=== PATIENT | female | born 1935 | race Caucasian/White ===

== ENCOUNTER 2018-08-13 17:10 | Emergency (ER) | payer MEDICARE ==
[2018-08-13 19:14] LABS: Calcium 10.2 mg/dL (8.4-10.2)
[2018-08-13 19:25] LABS: HCT 44.3 % (34.0-46.0); HGB 14.3 gm/dL (11.4-16.0); MCH 30.3 pg (25.0-35.0); MCHC 32.4 g/dL (31.0-37.0); MCV 93.6 fL (80.0-100.0); Mean Platelet Volume 7.8; Platelet Count 368 k/uL (150-450); RBC 4.73 m/uL (3.80-5.40); RDW 12.7 % (11.5-15.5); WBC 9.6 k/uL (3.8-10.6)
--- NOTE | 2018-08-13 20:00 | XR ---
EXAMINATION TYPE: XR chest 2V DATE OF EXAM: 08/13/2018 COMPARISON: NONE HISTORY: Dizziness TECHNIQUE: Frontal and lateral views of the chest are obtained. FINDINGS: Heart and mediastinum are normal. Lungs are clear. Diaphragm is normal. Bony thorax is int act. There are chest leads. IMPRESSION: Normal chest.
[2018-08-13] MEDS ORDERED: MECLIZINE 12.5 MG TAB PO STA ×2 (20:10→23:03)
--- NOTE | 2018-08-13 20:14 | ED ---
General Adult HPI - General Chief complaint: Dizziness Stated complaint: High BP Source: patient Mode of arrival: wheelchair Limitations: no limitations - Related Data Home Medications Medication Instructions Recorded Confirmed Latanoprost [Xalatan 0.005%] 1 drop BOTH EYES HS 08/13/18 08/13/18 Lisinopril-Hctz 20-12.5 mg 1 tab PO DAILY 08/13/18 08/13/18 [Zestoretic 20-12.5] Omeprazole [PriLOSEC] 20 mg PO DAILY 08/13/18 08/13/18 Propylene Glycol/Peg 400/Pf 1 drop BOTH EYES QID PRN 08/13/18 08/13/18 [Systane 0.3-0.4% Eye Drops] Previous Rx's Medication Instructions Recorded Meclizine [Antivert] 25 mg PO BID PRN #24 tab 08/13/18 Allergies Allergy/AdvReac Type Severity Reaction Status Date / Time blue dye Allergy Rash/Hives Verified 08/13/18 18:00 Review of Systems ROS Statement: Those systems with pertinent positive or pertinent negative responses have been documented in the HPI. ROS Other: All systems not noted in ROS Statement are negative. Past Medical History Past Medical History: CVA/TIA, GERD/Reflux, Hypertension Additional Past Medical History / Comment(s): macular degeneration, glaucoma. History of Any Multi-Drug Resistant Organisms: None Reported Past Surgical History: Cholecystectomy, Hysterectomy, Tonsillectomy Past Psychological History: No Psychological Hx Reported Smoking Status: Former smoker Past Alcohol Use History: None Reported General Exam Limitations: no limitations Course Vital Signs 08/13/18 08/13/18 08/13/18 17:19 18:22 18:27 Temperature 97.6 F Pulse Rate 83 80 81 Respiratory 18 18 16 Rate Blood Pressure 183/91 188/91 193/95 O2 Sat by Pulse 96 96 95 Oximetry 08/13/18 08/13/18 20:00 22:00 Temperature 98.2 F Pulse Rate 76 80 Respiratory 18 20 Rate Blood Pressure 189/88 184/98 O2 Sat by Pulse 98 96 Oximetry Medical Decision Making - Medical Decision Making Dictation was produced using [employer] dictation software. please excuse any grammatical, word or spelling errors. Chief Complaint: 83-year-old female past medical history of retinal hemorrhages presents with chief complaint dizziness. History of Present Illness: Is a 83-year-old female. She is accompanied by her daughters. She was seen by her primary care physician's office today where she was dizzy. She was sent here by primary care physician's office for dizziness blood pressure. Allegedly according to daughter she had high blood pressures with systolic measuring 200. Patient does take antihypertensive medications. She does state she takes, medications of lisinopril hydrochlorothiazide over the last several years without any issues. Last time she had her blood pressure checked was several months ago. Patient states she is feeling dizzy. She reports that her symptoms are worse with movement. She does report that her symptoms are worse when lying flat with left lateral recumbent position. States that her dizziness is more like lightheadedness. She states the room is sometimes gets moving. The ROS documented in this emergency department record has been reviewed and confirmed by me. Those systems with pertinent positive or negative responses have been documented in the HPI. All other systems are other negative and/or noncontributory. PHYSICAL EXAM: General Impression: Alert and oriented x3, not in acute distress HEENT: Normocephalic atraumatic, extra-ocular movements intact, pupils equal and reactive to light bilaterally, mucous membranes moist, no nystagmus Cardiovascular: Heart regular rate and rhythm, S1&S2 audible, no murmurs, rubs or gallops Chest: Lungs clear to auscultation bilaterally, no rhonchi, no wheeze, no rales Abdomen: Bowel sounds present, abdomen soft, non-tender, non-distended, no organomegaly Musculoskeletal: Pulses present and equal in all extremities, no peripheral edema Motor: Power 5/5 bilaterally, no focal deficits noted Neurological: CN II-XII grossly intact, no focal motor or sensory deficits noted , no ataxia, normal finger to nose and heel vincent test bilaterally Skin: Intact with no visualized rashes Psych: Normal affect and mood No elicited nystagmus with, positions. ED course: 83-year-old female presents chief complaint of dizziness and elevated blood pressure. As upon arrival shows blood pressure 183/91, respiratory signs within acceptable limits. Patient's clinical presentation is consistent with peripheral vertigo. HINTS exam does not suggest central cause.Laboratory evaluation obtained found to be unremarkable. Urinalysis negative. Chest x-ray is unremarkable. Patient given Antivert and reevaluated with improvement of symptoms. At this point no clinical suspicion of vertebrobasilar insufficiency or central cause of vertigo. Did have strong suspicion of peripheral vertigo. Patient told to rest and take Antivert. Otherwise she can follow-up with her primary care physician upon discharge. Family and patient are understandable and agreeable to plan. At this point patient continues to have elevated blood pressures. I don't believe that patient having any symptoms of hypertensive emergency. Patient to follow up with primary care physician for further outpatient management of elevated blood pressure. EKG interpretation: Ventricular rate 82, normal sinus rhythm, FL interval 126, QRS 84, QTC 462. No FL prolongation, no QTC prolongation, no ST or T-wave changes noted. Overall, this EKG is unremarkable - Lab Data Result diagrams: 08/13/18 18:10 08/13/18 18:10 Lab Results 08/13/18 08/13/18 08/13/18 Range/Units 18:10 18:10 Unknown WBC 9.6 (3.8-10.6) k/uL RBC 4.73 (3.80-5.40) m/uL Hgb 14.3 (11.4-16.0) gm/dL Hct 44.3 (34.0-46.0) % MCV 93.6 (80.0-100.0) fL MCH 30.3 (25.0-35.0) pg MCHC 32.4 (31.0-37.0) g/dL RDW 12.7 (11.5-15.5) % Plt Count 368 (150-450) k/uL Neutrophils % (Manual) 66 % Lymphocytes % (Manual) 25 % Monocytes % (Manual) 7 % Eosinophils % (Manual) 2 % Neutrophils # (Manual) 6.34 (1.3-7.7) k/uL Lymphocytes # (Manual) 2.40 (1.0-4.8) k/uL Monocytes # (Manual) 0.67 (0-1.0) k/uL Eosinophils # (Manual) 0.19 (0-0.7) k/uL Nucleated RBCs 0 (0-0) /100 WBC Manual Slide Review Performed Large Platelets Present Sodium 139 (137-145) mmol/L Potassium 5.0 (3.5-5.1) mmol/L Chloride 102 (98-107) mmol/L Carbon Dioxide 28 (22-30) mmol/L Anion Gap 9 mmol/L BUN 17 (7-17) mg/dL Creatinine 0.82 (0.52-1.04) mg/dL Est GFR (CKD-EPI)AfAm 78 (>60 ml/min/1.73 sqM) Est GFR (CKD-EPI)NonAf 67 (>60 ml/min/1.73 sqM) Glucose 121 H (74-99) mg/dL Calcium 10.2 (8.4-10.2) mg/dL Urine Color Light Yellow Urine Appearance Clear (Clear) Urine pH 7.0 (5.0-8.0) Ur Specific [place] 1.006 (1.001-1.035) Urine Protein Negative (Negative) Urine Glucose (UA) Negative (Negative) Urine Ketones Negative (Negative) Urine Blood Negative (Negative) Urine Nitrite Negative (Negative) Urine Bilirubin Negative (Negative) Urine Urobilinogen <2.0 (<2.0) mg/dL Ur Leukocyte Esterase Trace H (Negative) Urine RBC 3 (0-5) /hpf Hyaline Casts 1 (0-2) /lpf Disposition Clinical Impression: Dizziness Disposition: HOME SELF-CARE Condition: Fair Instructions: Dizziness (ED) Prescriptions: Meclizine [Antivert] 25 mg PO BID PRN #24 tab PRN Reason: dizziness Is patient prescribed a controlled substance at d/c from ED?: No Referrals: Lyn Bowie MD [Primary Care Provider] - 1-2 days Time of Disposition: 22:41
[2018-08-13 20:32] LABS: Eosinophils # (M) 0.19 k/uL (0-0.7); Monocytes # (M) 0.67 k/uL (0-1.0); Neutrophils # (M) 6.34 k/uL (1.3-7.7); Neutrophils % (M) 66 %; Nucleated Red Blood Cells 0 /100 WBC (0-0); Total Cells Counted 100
[2018-08-13 20:33] LABS: Large Platelets Present
[2018-08-13 22:25] LABS: Appearance,Urine Clear (Clear); Bilirubin,Urine Negative (Negative); Blood,Urine Negative (Negative); Color,Urine Light Yellow; Glucose,Urine (UA) Negative (Negative); Hyaline Casts,Urine 1 /lpf (0-2); Ketones,Urine Negative (Negative); Leukocyte Esterase,Urine Trace (Negative); Nitrite,Urine Negative (Negative); Protein,Urine Negative (Negative); RBC,Urine 3 /hpf (0-5); Specific Gravity,Urine 1.006 (1.001-1.035); Urobilinogen,Urine <2.0 mg/dL (<2.0)
[2018-08-13 23:20] VITALS: BP 170/84; PULSE 72; RESP 18; TEMP 98.3
== END 2018-08-13 23:06 | disposition home or self-care (01) ==
LOC: EC 17:10
DX: R42 Dizziness and giddiness (principal); I10 Essential (primary) hypertension; K21.9 Gastro-esophageal reflux disease without esophagitis; H35.30 Unspecified macular degeneration; Z86.73 Personal history of transient ischemic attack (TIA), and cerebral infarction without residual deficits; Z87.891 Personal history of nicotine dependence; Z90.49 Acquired absence of other specified parts of digestive tract; Z90.710 Acquired absence of both cervix and uterus; Z79.899 Other long term (current) drug therapy; Z91.048 Other nonmedicinal substance allergy status
CPT/HCPCS: 36415; 71046; 80048; 81001; 85025; 93005; 99284

== ENCOUNTER 2021-07-18 14:43 | Emergency (ER) | payer MEDICARE ==
[2021-07-18 15:04] VITALS: RESP 18; TEMP 98
--- NOTE | 2021-07-18 16:58 | XR ---
EXAMINATION TYPE: XR chest 2V DATE OF EXAM: 07/18/2021 4:37 PM COMPARISON: Radiograph on August 13, 2018 CLINICAL INDICATION:Female, 86 years old with history of possible infiltrate; TECHNIQUE: Frontal and lateral views of the chest. FINDINGS: Lungs/Pleura: There is no evidence of pleural effusion, focal consolidation, or pneumothorax. Pulmonary vascularity: Unremarkable. Heart/mediastinum: Cardiomediastinal silhouette is unremarkable. Musculoskeletal: No acute osseous pathology. IMPRESSION: No acute cardiopulmonary disease/process.
--- NOTE | 2021-07-18 17:07 | XR ---
EXAMINATION TYPE: XR sacrum coccyx DATE OF EXAM: 07/18/2021 4:37 PM INDICATION: Patient age:Female; 86 years old; Reason for study: trauma; PHH. COMPARISON: None TECHNIQUE: The coccyx and sacrum was examined in a single projection. FINDINGS: There is no evidence of fracture or dislocation. There is no soft tissue abnormality. Mul tilevel degenerative changes of the lower spine. IMPRESSION: No acute osseous pathology.
--- NOTE | 2021-07-18 17:23 | ED ---
General Adult HPI - General Chief complaint: Fall Stated complaint: weakness Time Seen by Provider: 07/18/21 15:39 Source: EMS Mode of arrival: EMS Limitations: no limitations - History of Present Illness Initial comments: This 86 year old female presents with a complaint of weakness. She relates that it started 3 days ago. She apparently got up fast and fell to the ground and hit the back of her head. She apparently had a syncopal episode at the time and she likely had syncope prior to hitting her head. She also has had some slight cough and minimal wheezing at home per daughter. The patient denies any shortness of breath. She denies any nausea, vomiting, abdominal pain, or leg pain or swelling. She also complains of a rash underneath her right breast which she's had for quite some time. She was seen at her doctor's office today and they sent her to the ER via ambulance. Right from the onset, the patient relates that she does not want to be admitted. She also relates that she does not want anything done and wants to go home. Eventually, with the help of her daughter, she agrees to have x-rays of her chest done as well as tailbone. She states that when she fell she also landed on her butt and has pain into her tailbone region. She also is scheduled for a cold with test tomorrow but is agreeable to have it done today. She is refusing computed tomography scan of her brain. She also is refusing any laboratory analysis. She does not want an IV, want to be admitted, and does not want to stay in the ER for 1 minute longer than she absolutely has to. She is quite adamant. She appears lucid and medical decision-making is intact. No other complaints or modifying factors. - Related Data Home Medications Medication Instructions Recorded Confirmed Latanoprost [Xalatan 0.005%] 1 drop BOTH EYES HS 08/13/18 08/13/18 Lisinopril-Hctz 20-12.5 mg 1 tab PO DAILY 08/13/18 08/13/18 [Zestoretic 20-12.5] Omeprazole [PriLOSEC] 20 mg PO DAILY 08/13/18 08/13/18 Propylene Glycol/Peg 400/Pf 1 drop BOTH EYES QID PRN 08/13/18 08/13/18 [Systane 0.3-0.4% Eye Drops] Previous Rx's Medication Instructions Recorded Meclizine [Antivert] 25 mg PO BID PRN #24 tab 08/13/18 Albuterol Sulfate [Albuterol 4 puff PO Q4H PRN #8.5 gm 07/18/21 Sulfate Hfa] Dexamethasone [Decadron] 6 mg PO DAILY #7 tablet 07/18/21 Nystatin/Triamcin Cream [Mycolog 1 applic TOPICAL TID #60 gm 07/18/21 100,000-0.1 Unit/gm-% Cream] Allergies Allergy/AdvReac Type Severity Reaction Status Date / Time blue dye Allergy Rash/Hives Verified 07/18/21 15:04 Review of Systems ROS Statement: Those systems with pertinent positive or pertinent negative responses have been documented in the HPI. ROS Other: All systems not noted in ROS Statement are negative. Past Medical History Past Medical History: CVA/TIA, GERD/Reflux, Hypertension Additional Past Medical History / Comment(s): macular degeneration, glaucoma. History of Any Multi-Drug Resistant Organisms: None Reported Past Surgical History: Cholecystectomy, Hysterectomy, Tonsillectomy Past Psychological History: No Psychological Hx Reported Smoking Status: Former smoker Past Alcohol Use History: None Reported Past Drug Use History: None Reported General Exam - General Exam Comments Initial Comments: GENERAL: The patient is well nourished and well hydrated. VITAL SIGNS: Heart rate, blood pressure, respiratory rate reviewed as recorded in nurse's notes. EYES: Pupils are round and reactive. Extraocular movements are intact. No conjunctival / lid redness or swelling. ENT: No external evidence of injury, swelling, or ecchymosis. Airway is patent. Throat is clear. NECK: Nontender. No swelling or evidence of injury. No subcutaneous emphysema. Trachea is midline. No thyroid mass. HEART: Regular rate and rhythm. Good peripheral pulses. LUNGS/CHEST: Breath sounds clear and equal bilaterally. No rales, rhonchi, or wheezes. No ecchymosis, subcutaneous emphysema, or tenderness. ABDOMEN: Abdomen soft without tenderness. No palpable masses or organomegaly. No peritoneal signs. No abdominal wall swelling or ecchymosis. EXTREMITIES: No extremity tenderness. Normal muscle tone and function. No thoracolumbar tenderness. There is mild tenderness over the sacrum and coccyx region. NEUROLOGIC: Sensation is grossly intact. Cranial nerve exam reveals face is symmetrical, tongue is midline, speech is clear. SKIN: No abrasions or ecchymosis is noted. No induration or masses noted. PSYCHIATRIC: Alert and oriented. Appropriate behavior and judgment. Limitations: no limitations Course Vital Signs 07/18/21 14:44 Temperature 98.0 F Pulse Rate 94 Respiratory 18 Rate Blood Pressure 118/61 O2 Sat by Pulse 95 Oximetry Medical Decision Making - Medical Decision Making The patient was seen and examined. She is adamant about not getting much testing done. She eventually is agreeable to have a COVID test done and this comes back positive. She has a chest x-ray done also which is negative. No acute abnormalities are noted on her sacrum and coccyx x-ray. Her oxygen patient status remained stable. She is refusing further workup for her syncope. She is refusing admission. She appears to have medical decision making a intact. Risks and benefits were discussed. Daughter is present. Patient is agreeable for symptomatic treatment with albuterol as well as adding Decadron. Return parameters are discussed and close follow-up recommended read it is also recommended that they obtain a pulse oximeter for home and return if pulse ox is consistently lower than 88-90%. Daughter relates that they're always be someone present with her at home to make sure that she is ambulating safely. - Lab Data Lab Results 07/18/21 Range/Units 16:02 Coronavirus (PCR) Detected A (Not Detectd) Disposition Clinical Impression: Syncope, Fall, COVID-19, Weakness, Head injury, Sacral contusion, Dayana infection of flexural skin Disposition: HOME SELF-CARE Condition: Fair Instructions (If sedation given, give patient instructions): Fall Prevention for Older Adults (ED), Coronavirus Disease 2019 (COVID-19), Head Injury (ED), Coccyx Injury (ED), Skin Yeast Infection (ED), Syncope (ED) Prescriptions: Albuterol Sulfate [Albuterol Sulfate Hfa] 4 puff PO Q4H PRN #8.5 gm PRN Reason: Cough Dexamethasone [Decadron] 6 mg PO DAILY #7 tablet Nystatin/Triamcin Cream [Mycolog 100,000-0.1 Unit/gm-% Cream] 1 applic TOPICAL TID #60 gm Is patient prescribed a controlled substance at d/c from ED?: No Referrals: John Fernandez MD [Primary Care Provider] - 1-2 days Time of Disposition: 17:23
[2021-07-18 17:48] VITALS: BP 106/60; PULSE 90
== END 2021-07-18 17:42 | disposition home or self-care (01) ==
LOC: EC 14:43
DX: S30.0XXA Contusion of lower back and pelvis, initial encounter (principal); S09.90XA Unspecified injury of head, initial encounter; U07.1 COVID-19; R55 Syncope and collapse; B37.2 Candidiasis of skin and nail; I10 Essential (primary) hypertension; Z79.899 Other long term (current) drug therapy; Z91.040 Latex allergy status; Z87.891 Personal history of nicotine dependence; Z86.73 Personal history of transient ischemic attack (TIA), and cerebral infarction without residual deficits; W19.XXXA Unspecified fall, initial encounter
CPT/HCPCS: 71046; 72220; 87635; 93005; 99285

== ENCOUNTER 2021-07-22 12:18 | Emergency (ER) | payer MEDICARE ==
[2021-07-22] MEDS ORDERED: SODIUM CHLORIDE 0.9% 1,000 ML IV STA (12:32)
--- NOTE | 2021-07-22 12:47 | ED ---
Weakness HPI - General Chief complaint: Weakness Stated complaint: COVID+, Near syncope Time Seen by Provider: 07/22/21 12:22 Source: patient, EMS, RN notes reviewed, old records reviewed Mode of arrival: EMS Limitations: no limitations - History of Present Illness Initial comments: 85-year-old female history of CVA history of hypertension who was diagnosed with COVID-19 4 days ago who apparently has been getting more progressively weak over last 4 days with decreased appetite she apparently was sitting in a commode when she almost passed out. She denies any fevers chills nausea vomiting she did have some diarrhea. Minimal cough. She was noted to be demonstrating evidence of dehydration per EMS she was given 450 mL of saline which did make her feel somewhat better. lites headache chest pain palpitations no focal weakness no other complaints or modifying factors at this time she did not receive antibody. Complaint: generalized weakness - Related Data Home Medications Medication Instructions Recorded Confirmed Latanoprost [Xalatan 0.005%] 1 drop BOTH EYES HS 08/13/18 07/22/21 Lisinopril-Hctz 20-12.5 mg 1 tab PO DAILY 08/13/18 07/22/21 [Zestoretic 20-12.5] Omeprazole [PriLOSEC] 20 mg PO DAILY 08/13/18 07/22/21 Albuterol Sulfate [Albuterol 4 puff PO RT-Q4H PRN 07/22/21 07/22/21 Sulfate Hfa] Cholecalciferol [Vitamin D3 (25 25 mcg PO DAILY 07/22/21 07/22/21 Mcg = 1000 Iu)] Zinc Sulfate [Orazinc] 220 mg PO DAILY 07/22/21 07/22/21 Previous Rx's Medication Instructions Recorded Dexamethasone [Decadron] 6 mg PO DAILY #7 tablet 07/18/21 Nystatin/Triamcin Cream [Mycolog 1 applic TOPICAL TID #60 gm 07/18/21 100,000-0.1 Unit/gm-% Cream] Allergies Allergy/AdvReac Type Severity Reaction Status Date / Time blue dye Allergy Rash/Hives Verified 07/22/21 14:18 Review of Systems ROS Statement: Those systems with pertinent positive or pertinent negative responses have been documented in the HPI. ROS Other: All systems not noted in ROS Statement are negative. Past Medical History Past Medical History: CVA/TIA, GERD/Reflux, Hypertension Additional Past Medical History / Comment(s): macular degeneration, glaucoma. History of Any Multi-Drug Resistant Organisms: None Reported Past Surgical History: Cholecystectomy, Hysterectomy, Tonsillectomy Past Psychological History: No Psychological Hx Reported Smoking Status: Former smoker Past Alcohol Use History: None Reported Past Drug Use History: None Reported General Exam - General Exam Comments Initial Comments: This is a well-developed well-nourished awake alert oriented x 3 female Limitations: no limitations General appearance: alert, in no apparent distress Head exam: Present: atraumatic, normocephalic, normal inspection Eye exam: Present: normal appearance, PERRL, EOMI. Absent: scleral icterus, conjunctival injection, periorbital swelling ENT exam: Present: mucous membranes dry Neck exam: Present: normal inspection. Absent: tenderness, meningismus, lymphadenopathy Respiratory exam: Present: normal lung sounds bilaterally. Absent: respiratory distress, wheezes, rales, rhonchi, stridor Cardiovascular Exam: Present: regular rate, normal rhythm, normal heart sounds. Absent: systolic murmur, diastolic murmur, rubs, gallop, clicks GI/Abdominal exam: Present: soft, normal bowel sounds. Absent: distended, tenderness, guarding, rebound, rigid Extremities exam: Present: normal inspection, full ROM, normal capillary refill. Absent: tenderness, pedal edema, joint swelling, calf tenderness Back exam: Present: normal inspection Neurological exam: Present: alert, oriented X3, CN II-XII intact Psychiatric exam: Present: normal affect, normal mood Skin exam: Present: warm, dry, intact, normal color. Absent: rash Course Vital Signs 07/22/21 07/22/21 07/22/21 12:20 14:00 15:05 Temperature 98.6 F 98.5 F Pulse Rate 79 75 Respiratory 20 16 22 Rate Blood Pressure 131/66 137/54 O2 Sat by Pulse 98 95 Oximetry 07/22/21 17:00 Temperature Pulse Rate 76 Respiratory 18 Rate Blood Pressure 145/89 O2 Sat by Pulse 97 Oximetry EKG Findings - EKG Results: EKG: interpreted by AURA, sinus rhythm (Sinus rhythm of 75. We'll 118 QRS 82 QT since QTC 390/444 possible left atrial enlargement no acute ST-T wave changes) Medical Decision Making - Medical Decision Making I did reevaluate patient several occasions I did discuss the findings with her she would like to go home she is coping positive she does not have any evidence of PE she did have evidence of dehydration. She did receive the IV antibody we did discuss this and full. She will be discharged at her request. Did discuss vitamin C vitamin D3 as well as oral fluids. - Lab Data Result diagrams: 07/22/21 13:10 07/22/21 13:10 Lab Results 07/22/21 07/22/21 07/22/21 Range/Units 13:10 13:10 13:10 WBC 13.7 H (3.8-10.6) k/uL RBC 4.74 (3.80-5.40) m/uL Hgb 14.6 (11.4-16.0) gm/dL Hct 42.7 (34.0-46.0) % MCV 90.2 (80.0-100.0) fL MCH 30.7 (25.0-35.0) pg MCHC 34.1 (31.0-37.0) g/dL RDW 12.5 (11.5-15.5) % Plt Count 310 (150-450) k/uL MPV 8.6 Neutrophils % (Manual) 87 % Lymphocytes % (Manual) 7 % Monocytes % (Manual) 6 % Neutrophils # (Manual) 11.92 H (1.3-7.7) k/uL Lymphocytes # (Manual) 0.96 L (1.0-4.8) k/uL Monocytes # (Manual) 0.82 (0-1.0) k/uL Nucleated RBCs 0 (0-0) /100 WBC Manual Slide Review Performed RBC Morphology Normal D-Dimer 0.97 H (<0.60) mg/L FEU Sodium (137-145) mmol/L Potassium (3.5-5.1) mmol/L Chloride (98-107) mmol/L Carbon Dioxide (22-30) mmol/L Anion Gap mmol/L BUN (7-17) mg/dL Creatinine (0.52-1.04) mg/dL Est GFR (CKD-EPI)AfAm (>60 ml/min/1.73 sqM) Est GFR (CKD-EPI)NonAf (>60 ml/min/1.73 sqM) Glucose (74-99) mg/dL POC Glucose (mg/dL) (75-99) mg/dL POC Glu Numerical Control Drill Press Operator ID Calcium (8.4-10.2) mg/dL Magnesium (1.6-2.3) mg/dL Total Bilirubin (0.2-1.3) mg/dL AST (14-36) U/L ALT (4-34) U/L Alkaline Phosphatase (38-126) U/L Creatine Kinase (30-135) U/L Troponin I (0.000-0.034) ng/mL NT-Pro-B Natriuret Pep pg/mL Total Protein (6.3-8.2) g/dL Albumin (3.5-5.0) g/dL Urine Color Yellow Urine Appearance Clear (Clear) Urine pH 6.0 (5.0-8.0) Ur Specific [place] 1.015 (1.001-1.035) Urine Protein Negative (Negative) Urine Glucose (UA) Negative (Negative) Urine Ketones Negative (Negative) Urine Blood Negative (Negative) Urine Nitrite Negative (Negative) Urine Bilirubin Negative (Negative) Urine Urobilinogen <2.0 (<2.0) mg/dL Ur Leukocyte Esterase Negative (Negative) 07/22/21 07/22/21 07/22/21 Range/Units 13:10 13:10 13:10 WBC (3.8-10.6) k/uL RBC (3.80-5.40) m/uL Hgb (11.4-16.0) gm/dL Hct (34.0-46.0) % MCV (80.0-100.0) fL MCH (25.0-35.0) pg MCHC (31.0-37.0) g/dL RDW (11.5-15.5) % Plt Count (150-450) k/uL MPV Neutrophils % (Manual) % Lymphocytes % (Manual) % Monocytes % (Manual) % Neutrophils # (Manual) (1.3-7.7) k/uL Lymphocytes # (Manual) (1.0-4.8) k/uL Monocytes # (Manual) (0-1.0) k/uL Nucleated RBCs (0-0) /100 WBC Manual Slide Review RBC Morphology D-Dimer (<0.60) mg/L FEU Sodium 132 L (137-145) mmol/L Potassium 3.8 (3.5-5.1) mmol/L Chloride 99 (98-107) mmol/L Carbon Dioxide 19 L (22-30) mmol/L Anion Gap 14 mmol/L BUN 28 H (7-17) mg/dL Creatinine 0.93 (0.52-1.04) mg/dL Est GFR (CKD-EPI)AfAm 66 (>60 ml/min/1.73 sqM) Est GFR (CKD-EPI)NonAf 57 (>60 ml/min/1.73 sqM) Glucose 155 H (74-99) mg/dL POC Glucose (mg/dL) (75-99) mg/dL POC Glu Numerical Control Drill Press Operator ID Calcium 8.3 L (8.4-10.2) mg/dL Magnesium 1.8 (1.6-2.3) mg/dL Total Bilirubin 0.7 (0.2-1.3) mg/dL AST 102 H (14-36) U/L ALT 82 H (4-34) U/L Alkaline Phosphatase 55 (38-126) U/L Creatine Kinase 30 (30-135) U/L Troponin I <0.012 (0.000-0.034) ng/mL NT-Pro-B Natriuret Pep 203 pg/mL Total Protein 6.6 (6.3-8.2) g/dL Albumin 3.7 (3.5-5.0) g/dL Urine Color Urine Appearance (Clear) Urine pH (5.0-8.0) Ur Specific [place] (1.001-1.035) Urine Protein (Negative) Urine Glucose (UA) (Negative) Urine Ketones (Negative) Urine Blood (Negative) Urine Nitrite (Negative) Urine Bilirubin (Negative) Urine Urobilinogen (<2.0) mg/dL Ur Leukocyte Esterase (Negative) 07/22/21 Range/Units 13:56 WBC (3.8-10.6) k/uL RBC (3.80-5.40) m/uL Hgb (11.4-16.0) gm/dL Hct (34.0-46.0) % MCV (80.0-100.0) fL MCH (25.0-35.0) pg MCHC (31.0-37.0) g/dL RDW (11.5-15.5) % Plt Count (150-450) k/uL MPV Neutrophils % (Manual) % Lymphocytes % (Manual) % Monocytes % (Manual) % Neutrophils # (Manual) (1.3-7.7) k/uL Lymphocytes # (Manual) (1.0-4.8) k/uL Monocytes # (Manual) (0-1.0) k/uL Nucleated RBCs (0-0) /100 WBC Manual Slide Review RBC Morphology D-Dimer (<0.60) mg/L FEU Sodium (137-145) mmol/L Potassium (3.5-5.1) mmol/L Chloride (98-107) mmol/L Carbon Dioxide (22-30) mmol/L Anion Gap mmol/L BUN (7-17) mg/dL Creatinine (0.52-1.04) mg/dL Est GFR (CKD-EPI)AfAm (>60 ml/min/1.73 sqM) Est GFR (CKD-EPI)NonAf (>60 ml/min/1.73 sqM) Glucose (74-99) mg/dL POC Glucose (mg/dL) 174 H (75-99) mg/dL POC Glu Numerical Control Drill Press Operator ID Shahnaz Plascencia Calcium (8.4-10.2) mg/dL Magnesium (1.6-2.3) mg/dL Total Bilirubin (0.2-1.3) mg/dL AST (14-36) U/L ALT (4-34) U/L Alkaline Phosphatase (38-126) U/L Creatine Kinase (30-135) U/L Troponin I (0.000-0.034) ng/mL NT-Pro-B Natriuret Pep pg/mL Total Protein (6.3-8.2) g/dL Albumin (3.5-5.0) g/dL Urine Color Urine Appearance (Clear) Urine pH (5.0-8.0) Ur Specific [place] (1.001-1.035) Urine Protein (Negative) Urine Glucose (UA) (Negative) Urine Ketones (Negative) Urine Blood (Negative) Urine Nitrite (Negative) Urine Bilirubin (Negative) Urine Urobilinogen (<2.0) mg/dL Ur Leukocyte Esterase (Negative) - Radiology Data Radiology results: report reviewed (AJ reviewed no PE evidence of basilar infiltrate consistent with COVID-19 please see complete report), image reviewed Disposition Clinical Impression: Pneumonia due to COVID-19 virus, Dehydration Disposition: HOME SELF-CARE Condition: Good Instructions (If sedation given, give patient instructions): Coronavirus Disease 2019 (COVID-19), Dehydration (ED) Is patient prescribed a controlled substance at d/c from ED?: No Referrals: John Fernandez MD [Primary Care Provider] - 1-2 days
--- NOTE | 2021-07-22 13:14 | XR ---
EXAMINATION TYPE: XR chest 2V DATE OF EXAM: 07/22/2021 COMPARISON: 07/18/2021 HISTORY: Covid positive TECHNIQUE: Frontal and lateral views of the chest are obtained. FINDINGS: There are questionable subtle small air space or alveolar opacities in the bases which wer e not seen previously and consistent with mild acute cardiopulmonary disease. There is no pneumothora x or large pleural effusion. The heart is normal and the pulmonary vasculature is not congested. The osseous structures are intact. IMPRESSION: Mild acute cardiopulmonary disease in the lung bases as described above.
[2021-07-22 13:57] LABS: Glucose,Whole Blood 174 mg/dL (75-99)
[2021-07-22] MEDS ORDERED: BAMLANIVIMAB (EUA) 700 MG, ETESEVIMAB (EUA) 1,400 MG in SODIUM CHLORIDE 0.9% 50 ML IVPB ONE (14:00)
[2021-07-22 14:04] VITALS: TEMP 98.5
[2021-07-22 14:09] LABS: Albumin 3.7 g/dL (3.5-5.0); Calcium 8.3 mg/dL (8.4-10.2); Magnesium 1.8 mg/dL (1.6-2.3); Total Bilirubin 0.7 mg/dL (0.2-1.3); Total Protein 6.6 g/dL (6.3-8.2)
[2021-07-22 14:11] LABS: Potassium 3.8 mmol/L (3.5-5.1)
[2021-07-22 14:14] LABS: HCT 42.7 % (34.0-46.0); HGB 14.6 gm/dL (11.4-16.0); MCH 30.7 pg (25.0-35.0); MCHC 34.1 g/dL (31.0-37.0); MCV 90.2 fL (80.0-100.0); Mean Platelet Volume 8.6; Platelet Count 310 k/uL (150-450); RBC 4.74 m/uL (3.80-5.40); RDW 12.5 % (11.5-15.5); WBC 13.7 k/uL (3.8-10.6)
[2021-07-22 14:28] LABS: Lymphocytes # (M) 0.96 k/uL (1.0-4.8); Monocytes # (M) 0.82 k/uL (0-1.0); Neutrophils # (M) 11.92 k/uL (1.3-7.7); Neutrophils % (M) 87 %; Nucleated Red Blood Cells 0 /100 WBC (0-0); Total Cells Counted 100
[2021-07-22] MEDS ORDERED: SODIUM CHLORIDE 0.9% 50 ML IVPB ONE (14:30)
[2021-07-22 15:19] LABS: Appearance,Urine Clear (Clear); Bilirubin,Urine Negative (Negative); Blood,Urine Negative (Negative); Color,Urine Yellow; Glucose,Urine (UA) Negative (Negative); Ketones,Urine Negative (Negative); Leukocyte Esterase,Urine Negative (Negative); Nitrite,Urine Negative (Negative); Protein,Urine Negative (Negative); Specific Gravity,Urine 1.015 (1.001-1.035); Urobilinogen,Urine <2.0 mg/dL (<2.0)
--- NOTE | 2021-07-22 16:50 | CT ---
EXAMINATION TYPE: CT angio chest DATE OF EXAM: 07/22/2021 COMPARISON: None HISTORY: Elevated d-dimer, Covid + CT DLP: 296.7 mGycm Automated exposure control for dose reduction was used. CONTRAST: Performed with IV Contrast, patient injected with 80 mL of Isovue 370. There are 3-D post processed images. There is patchy pulmonary interstitial peripheral infiltrates. There is some patchy subsegmental atel ectasis. Heart size is normal. There is no mediastinal adenopathy. Thoracic aorta is atheromatous. Th e ascending aorta measures 3.2 cm. There is no aneurysm or dissection. There is normal contrast opacification of the pulmonary arteries. There are no filling defects. There is a moderate-sized hiatal hernia. There is no pericardial effusion. Thoracic spine is intact. There is L1 anterior wedging 25% that appears old. IMPRESSION: No evidence of pulmonary embolism. Patchy peripheral bilateral pulmonary interstitial infiltrates. No suspicious pulmonary mass.
[2021-07-22 17:20] VITALS: BP 145/89; PULSE 76; RESP 18
== END 2021-07-22 18:11 | disposition home or self-care (01) ==
LOC: EC 12:18
DX: U07.1 COVID-19 (principal); J12.82 Pneumonia due to coronavirus disease 2019; E86.0 Dehydration; K21.9 Gastro-esophageal reflux disease without esophagitis; I10 Essential (primary) hypertension; Z86.73 Personal history of transient ischemic attack (TIA), and cerebral infarction without residual deficits; Z90.49 Acquired absence of other specified parts of digestive tract; Z90.710 Acquired absence of both cervix and uterus; Z87.891 Personal history of nicotine dependence
CPT/HCPCS: 96360; 96361; 99285; M0245; 36415; 71046; 71275; 80053; 81003; 82550; 83735; 83880; 84484; 85025; 85379; 93005

== ENCOUNTER 2021-07-26 15:54 | Inpatient (IN) | payer MEDICARE ==
--- NOTE | 2021-07-26 16:41 | ED ---
Weakness HPI - General Chief complaint: Weakness Stated complaint: Covid+ Time Seen by Provider: 07/26/21 15:54 Source: patient, EMS, RN notes reviewed, old records reviewed Mode of arrival: EMS Limitations: no limitations - History of Present Illness Initial comments: 86-year-old female with recent admission for COVID-19 and syncope who is back today complaining of generalized weakness decreased appetite chest tightness and just generally feeling tired. MD Complaint: generalized weakness - Related Data Home Medications Medication Instructions Recorded Confirmed Latanoprost [Xalatan 0.005%] 1 drop BOTH EYES HS 08/13/18 07/26/21 Lisinopril-Hctz 20-12.5 mg 1 tab PO DAILY 08/13/18 07/26/21 [Zestoretic 20-12.5] Omeprazole [PriLOSEC] 20 mg PO DAILY 08/13/18 07/26/21 Albuterol Sulfate [Albuterol 4 puff PO RT-Q4H PRN 07/22/21 07/26/21 Sulfate Hfa] Cholecalciferol [Vitamin D3 (25 25 mcg PO DAILY 07/22/21 07/26/21 Mcg = 1000 Iu)] Zinc Sulfate [Orazinc] 220 mg PO DAILY 07/22/21 07/26/21 Omeprazole Magnesium [PriLOSEC OTC] 20 mg PO DAILY 07/26/21 07/26/21 Previous Rx's Medication Instructions Recorded Nystatin/Triamcin Cream [Mycolog 1 applic TOPICAL TID #60 gm 07/18/21 100,000-0.1 Unit/gm-% Cream] Allergies Allergy/AdvReac Type Severity Reaction Status Date / Time blue dye Allergy Rash/Hives Verified 07/22/21 14:18 Review of Systems ROS Statement: Those systems with pertinent positive or pertinent negative responses have been documented in the HPI. ROS Other: All systems not noted in ROS Statement are negative. Past Medical History Past Medical History: CVA/TIA, GERD/Reflux, Hypertension Additional Past Medical History / Comment(s): macular degeneration, glaucoma. History of Any Multi-Drug Resistant Organisms: None Reported Past Surgical History: Cholecystectomy, Hysterectomy, Tonsillectomy Past Psychological History: No Psychological Hx Reported Smoking Status: Former smoker Past Alcohol Use History: None Reported Past Drug Use History: None Reported General Exam - General Exam Comments Initial Comments: This is a well-developed well-nourished awake alert oriented 3 female Limitations: no limitations General appearance: alert, in no apparent distress Head exam: Present: atraumatic, normocephalic, normal inspection Eye exam: Present: normal appearance, PERRL, EOMI. Absent: scleral icterus, conjunctival injection, periorbital swelling ENT exam: Present: mucous membranes dry Neck exam: Present: normal inspection, full ROM, other (Surgery or bruits). Absent: tenderness, meningismus, lymphadenopathy Respiratory exam: Present: decreased breath sounds. Absent: respiratory distress, wheezes, rales, rhonchi, stridor Cardiovascular Exam: Present: regular rate, normal rhythm, normal heart sounds. Absent: systolic murmur, diastolic murmur, rubs, gallop, clicks GI/Abdominal exam: Present: soft, normal bowel sounds. Absent: distended, tenderness, guarding, rebound, rigid Extremities exam: Present: normal inspection, full ROM, normal capillary refill. Absent: tenderness, pedal edema, joint swelling, calf tenderness Back exam: Present: normal inspection Neurological exam: Present: alert, oriented X3, CN II-XII intact Psychiatric exam: Present: normal affect, normal mood Skin exam: Present: warm, dry, intact, normal color. Absent: rash Course Vital Signs 07/26/21 07/26/21 16:21 17:21 Temperature 98.6 F Pulse Rate 97 101 H Respiratory 18 16 Rate Blood Pressure 166/83 158/83 O2 Sat by Pulse 96 95 Oximetry EKG Findings - EKG Results: EKG: interpreted by AURA, sinus rhythm (Sinus rhythm 97. Interval 120 QRS duration 78 QT since QTC 352/447 possible left atrial enlargement nonspecific ST configuration) Medical Decision Making - Medical Decision Making I did discuss findings with the patient and with Dr. lam patient be admitted for IV antibiotics IV hydration - Lab Data Result diagrams: 07/26/21 16:41 07/26/21 16:41 Lab Results 07/26/21 07/26/21 07/26/21 Range/Units 16:41 16:41 16:41 WBC 10.8 H (3.8-10.6) k/uL RBC 4.89 (3.80-5.40) m/uL Hgb 14.7 (11.4-16.0) gm/dL Hct 43.5 (34.0-46.0) % MCV 89.1 (80.0-100.0) fL MCH 30.1 (25.0-35.0) pg MCHC 33.8 (31.0-37.0) g/dL RDW 12.8 (11.5-15.5) % Plt Count 490 H (150-450) k/uL MPV 7.2 Neutrophils % (Manual) 64 % Band Neuts % (Manual) 2 % Lymphocytes % (Manual) 17 % Monocytes % (Manual) 14 % Eosinophils % (Manual) 1 % Metamyelocytes % 2 % Neutrophils # (Manual) 7.10 (1.3-7.7) k/uL Lymphocytes # (Manual) 1.84 (1.0-4.8) k/uL Monocytes # (Manual) 1.51 H (0-1.0) k/uL Eosinophils # (Manual) 0.11 (0-0.7) k/uL Metamyelocytes # (Man) 0.22 H (0) k/uL Nucleated RBCs 0 (0-0) /100 WBC Manual Slide Review Performed PT 9.8 (9.0-12.0) sec INR 0.9 (<1.2) APTT 21.6 L (22.0-30.0) sec D-Dimer 0.77 H (<0.60) mg/L FEU Sodium 125 L (137-145) mmol/L Potassium 3.7 (3.5-5.1) mmol/L Chloride 94 L (98-107) mmol/L Carbon Dioxide 21 L (22-30) mmol/L Anion Gap 10 mmol/L BUN 18 H (7-17) mg/dL Creatinine 0.73 (0.52-1.04) mg/dL Est GFR (CKD-EPI)AfAm 88 (>60 ml/min/1.73 sqM) Est GFR (CKD-EPI)NonAf 76 (>60 ml/min/1.73 sqM) Glucose 154 H (74-99) mg/dL Plasma Lactic Acid Harris (0.7-2.0) mmol/L Calcium 9.2 (8.4-10.2) mg/dL Magnesium 1.6 (1.6-2.3) mg/dL Total Bilirubin 1.3 (0.2-1.3) mg/dL AST 37 H (14-36) U/L ALT 52 H (4-34) U/L Alkaline Phosphatase 64 (38-126) U/L Troponin I (0.000-0.034) ng/mL NT-Pro-B Natriuret Pep pg/mL Total Protein 6.8 (6.3-8.2) g/dL Albumin 3.7 (3.5-5.0) g/dL 07/26/21 07/26/21 07/26/21 Range/Units 16:41 16:41 16:41 WBC (3.8-10.6) k/uL RBC (3.80-5.40) m/uL Hgb (11.4-16.0) gm/dL Hct (34.0-46.0) % MCV (80.0-100.0) fL MCH (25.0-35.0) pg MCHC (31.0-37.0) g/dL RDW (11.5-15.5) % Plt Count (150-450) k/uL MPV Neutrophils % (Manual) % Band Neuts % (Manual) % Lymphocytes % (Manual) % Monocytes % (Manual) % Eosinophils % (Manual) % Metamyelocytes % % Neutrophils # (Manual) (1.3-7.7) k/uL Lymphocytes # (Manual) (1.0-4.8) k/uL Monocytes # (Manual) (0-1.0) k/uL Eosinophils # (Manual) (0-0.7) k/uL Metamyelocytes # (Man) (0) k/uL Nucleated RBCs (0-0) /100 WBC Manual Slide Review PT (9.0-12.0) sec INR (<1.2) APTT (22.0-30.0) sec D-Dimer (<0.60) mg/L FEU Sodium (137-145) mmol/L Potassium (3.5-5.1) mmol/L Chloride (98-107) mmol/L Carbon Dioxide (22-30) mmol/L Anion Gap mmol/L BUN (7-17) mg/dL Creatinine (0.52-1.04) mg/dL Est GFR (CKD-EPI)AfAm (>60 ml/min/1.73 sqM) Est GFR (CKD-EPI)NonAf (>60 ml/min/1.73 sqM) Glucose (74-99) mg/dL Plasma Lactic Acid Harris 0.9 (0.7-2.0) mmol/L Calcium (8.4-10.2) mg/dL Magnesium (1.6-2.3) mg/dL Total Bilirubin (0.2-1.3) mg/dL AST (14-36) U/L ALT (4-34) U/L Alkaline Phosphatase (38-126) U/L Troponin I 0.014 (0.000-0.034) ng/mL NT-Pro-B Natriuret Pep 268 pg/mL Total Protein (6.3-8.2) g/dL Albumin (3.5-5.0) g/dL - Radiology Data Radiology results: report reviewed (Imaging reviewed evidence of interstitial infiltrates bilaterally. He's had a complete report), image reviewed Disposition Clinical Impression: Interstitial pneumonia of both lungs, Dehydration, Hyponatremia, Failure to thrive in adult Disposition: ADMITTED IP TO THIS HOSP Condition: Fair Referrals: John Fernandez MD [Primary Care Provider] - 1-2 days
[2021-07-26 16:52] LABS: HCT 43.5 % (34.0-46.0); HGB 14.7 gm/dL (11.4-16.0); MCH 30.1 pg (25.0-35.0); MCHC 33.8 g/dL (31.0-37.0); MCV 89.1 fL (80.0-100.0); Mean Platelet Volume 7.2; Platelet Count 490 k/uL (150-450); RBC 4.89 m/uL (3.80-5.40); RDW 12.8 % (11.5-15.5); WBC 10.8 k/uL (3.8-10.6)
--- NOTE | 2021-07-26 16:52 | XR ---
EXAMINATION TYPE: XR chest 2V DATE OF EXAM: 07/26/2021 COMPARISON: 07/22/2021 HISTORY: Difficulty breathing TECHNIQUE: 2 views FINDINGS: There is hiatal hernia. There is no heart failure nor confluent pneumonic infiltrate. Bony thorax is intact. There are no hilar masses. Heart size is normal. There is some coarse density in th e periphery of both mid lung morocho. IMPRESSION: There is some new mild peripheral interstitial infil trates in both lungs compared to recent exam. This could be some mild pneumonia. No heart failure.
[2021-07-26 17:01] LABS: Albumin 3.7 g/dL (3.5-5.0); Calcium 9.2 mg/dL (8.4-10.2); Magnesium 1.6 mg/dL (1.6-2.3); Potassium 3.7 mmol/L (3.5-5.1); Total Bilirubin 1.3 mg/dL (0.2-1.3); Total Protein 6.8 g/dL (6.3-8.2)
[2021-07-26 17:21] LABS: INR 0.9 (<1.2); Prothrombin Time 9.8 sec (9.0-12.0)
[2021-07-26 17:34] LABS: Partial Thromboplastin Time 21.6 sec (22.0-30.0)
[2021-07-26 17:46] LABS: Band Neutrophils % 2 %; Eosinophils # (M) 0.11 k/uL (0-0.7); Lymphocytes # (M) 1.84 k/uL (1.0-4.8); Metamyelocytes # (M) 0.22 k/uL (0); Metamyelocytes % 2 %; Monocytes # (M) 1.51 k/uL (0-1.0); Neutrophils % (M) 64 %; Nucleated Red Blood Cells 0 /100 WBC (0-0); Total Cells Counted 100
[2021-07-26] MEDS ORDERED: PNEUMONIA PROTOCOL UTILIZED 1 EACH MISC PO PRN (17:52)
[2021-07-26] MEDS ORDERED: AZITHROMYCIN 500 MG in SODIUM CHLORIDE 0.9% 250 ML IVPB STA (17:52)
[2021-07-26] MEDS: SODIUM CHLORIDE 0.9% 1,000 ML IV SCH (20:24)
[2021-07-26] MEDS: LATANOPROST 0.005% OPHTH DROPS 2.5 ML BTL BOTH EYES SCH (22:39)
[2021-07-27] MEDS: SODIUM CHLORIDE 0.9% 1,000 ML IV SCH ×3 (06:12→22:51)
--- NOTE | 2021-07-27 07:33 | XR ---
EXAMINATION TYPE: XR chest 1V portable DATE OF EXAM: 07/27/2021 Comparison: 07/26/2021 Clinical History: 86-year-old female follow-up PNA Findings: Heart normal size. Hyperinflation. Rounded retrocardiac density is redemonstrated. Patchy peripheral and basilar opacities persist and may be slightly increased. Impression: COPD with stable to slightly increasing peripheral and basilar infiltrates.
[2021-07-27] MEDS ORDERED: NON FORMULARY DRUG (Omeprazole Magnesium [Prilosec Otc] 20 MG Tablet) PO SCH (09:00)
[2021-07-27] MEDS ORDERED: FAMOTIDINE 20 MG/2 ML VIAL IV SCH (09:00)
[2021-07-27] MEDS: ALBUTEROL HFA INHALER INHALATION PRN ×2 (09:27→17:51)
[2021-07-27] MEDS: ENOXAPARIN 40 MG/0.4 ML SYRINGE SQ SCH (10:24)
[2021-07-27] MEDS: DEXAMETHASONE SOD PHOSPHATE 10 MG/ML 1 ML VIAL IVP SCH (10:24)
[2021-07-27] MEDS: ASCORBIC ACID 500 MG TAB PO SCH (10:25)
[2021-07-27] MEDS: CHOLECALCIFEROL 25 MCG (1000 IU) TABLET PO SCH (10:25)
[2021-07-27] MEDS: ZINC SULFATE 220 MG CAP PO SCH (10:25)
[2021-07-27] MEDS: PANTOPRAZOLE 40 MG TABLET PO SCH ×2 (10:25→10:36)
[2021-07-27] MEDS: LISINOPRIL-HCTZ 20-12.5 MG 1 EACH TAB PO SCH (10:58)
--- NOTE | 2021-07-27 12:54 | P.HPIM ---
History of Present Illness This is a pleasant 89 years old female with past medical history of CVA/TIA, GERD, Hypertension, Seizure Disorder Patient states she came to the hospital because she was feeling poorly, she was not eating and she feeling weak since 07/18/2021. However she denies dyspnea. She has little over the phlegm, her phlegm is clear but she could not tell for home she has Patient was tested positive for Covid on 07/18/2021 and she is status post antibodies infusion on 07/22/2021. fatigue, no appetite, chest tightness, and cough. Pt states that she just isn't feeling well. Pt is not in respiratory distress. She denies abdominal pain or vomiting but she has diarrhea yesterday once or twice. She denies smoking, alcohol or illicit drugs. Currently she is saturating 94% on room air. WBC 10.8 K, Platelets 490, Lymphocytes Are Normal at 1.8. D-Dimer Elevated at 0.77. INR Is Normal at 0.9. Sodium 125, Creatinine Normal 0.7, Liver Enzymes Are Marginally Elevated AST 37 and ALT 52. Normal Bilirubin 1.3. Chest x-ray shows COPD with stable slightly increasing peripheral on both lung morocho, suspicious for mild pneumonia Coronavirus is detected. Review of Systems CONSTITUTIONAL: No fever, no malaise, no fatigue. HEENT: No recent visual problems or hearing problems. Denied any sore throat. CARDIOVASCULAR: No orthopnea, PND, no palpitations, no syncope. PULMONARY: No chest wall tenderness, no hemoptysis. GASTROINTESTINAL: No diarrhea, no nausea, no vomiting, no abdominal pain. Normoactive bowel sounds. NEUROLOGICAL: No headaches, no weakness, no numbness. HEMATOLOGICAL: Denies any bleeding or petechiae. GENITOURINARY: Denies any burning micturition, frequency, or urgency. MUSCULOSKELETAL/RHEUMATOLOGICAL: Denies any joint pain, swelling, or any muscle pain. ENDOCRINE: Denies any polyuria or polydipsia. Past Medical History Past Medical History: CVA/TIA, GERD/Reflux, Hypertension, Seizure Disorder Additional Past Medical History / Comment(s): macular degeneration, glaucoma. History of Any Multi-Drug Resistant Organisms: None Reported Past Surgical History: Cholecystectomy, Hysterectomy, Tonsillectomy Past Psychological History: No Psychological Hx Reported Smoking Status: Former smoker Past Alcohol Use History: None Reported Past Drug Use History: None Reported Medications and Allergies Home Medications Medication Instructions Recorded Confirmed Type Latanoprost [Xalatan 0.005%] 1 drop BOTH EYES HS 08/13/18 07/26/21 History Lisinopril-Hctz 20-12.5 mg 1 tab PO DAILY 08/13/18 07/26/21 History [Zestoretic 20-12.5] Omeprazole [PriLOSEC] 20 mg PO DAILY 08/13/18 07/26/21 History Nystatin/Triamcin Cream [Mycolog 1 applic TOPICAL TID #60 gm 07/18/21 07/26/21 Rx 100,000-0.1 Unit/gm-% Cream] Albuterol Sulfate [Albuterol 4 puff PO RT-Q4H PRN 07/22/21 07/26/21 History Sulfate Hfa] Cholecalciferol [Vitamin D3 (25 25 mcg PO DAILY 07/22/21 07/26/21 History Mcg = 1000 Iu)] Zinc Sulfate [Orazinc] 220 mg PO DAILY 07/22/21 07/26/21 History Omeprazole Magnesium [PriLOSEC OTC] 20 mg PO DAILY 07/26/21 07/26/21 History Allergies Allergy/AdvReac Type Severity Reaction Status Date / Time blue dye Allergy Rash/Hives Verified 07/22/21 14:18 Physical Exam Vitals: Vital Signs Temp Pulse Pulse Resp BP BP Pulse Ox 07/27/21 06:00 98.3 F 73 17 119/73 94 L 07/27/21 02:06 98.7 F 84 17 127/71 94 L 07/26/21 19:50 98.0 F 90 17 137/76 95 07/26/21 17:21 101 H 16 158/83 95 07/26/21 16:21 98.6 F 97 18 166/83 96 Intake and Output 07/26/21 07/27/21 07/27/21 22:59 06:59 14:59 Intake Total 1730 Balance 1730 Intake: Intake, IV Titration 1250 Amount Azithromycin 500 mg In 250 Sodium Chloride 0.9% 250 ml @ 250 mls/hr IVPB ONCE [facility] Rx#:[id number] Sodium Chloride 0.9% 1, 1000 000 ml @ 100 mls/hr IV . Q10H [facility] Rx#:[id number] Oral 480 Other: Weight 69.4 kg GENERAL: The patient is alert and oriented x3, not in any acute distress. Well developed, well nourished. HEENT: Pupils are round and equally reacting to light. EOMI. No scleral icterus. No conjunctival pallor. Normocephalic, atraumatic. No pharyngeal erythema. No t hyromegaly. CARDIOVASCULAR: S1 and S2 present. No murmurs, rubs, or gallops. PULMONARY: Chest is clear to auscultation, no wheezing or crackles. ABDOMEN: Soft, nontender, nondistended, normoactive bowel sounds. No palpable organomegaly. MUSCULOSKELETAL: No joint swelling or deformity. EXTREMITIES: No cyanosis, clubbing, or pedal edema. NEUROLOGICAL: Gross neurological examination did not reveal any focal deficits. SKIN: No rashes. No petechiae Results CBC & Chem 7: 07/26/21 16:41 07/26/21 16:41 Labs: Abnormal Lab Results - Last 24 Hours (Table) 07/26/21 07/26/21 07/26/21 Range/Units 16:41 16:41 16:41 WBC 10.8 H (3.8-10.6) k/uL Plt Count 490 H (150-450) k/uL Monocytes # (Manual) 1.51 H (0-1.0) k/uL Metamyelocytes # (Man) 0.22 H (0) k/uL APTT 21.6 L (22.0-30.0) sec D-Dimer 0.77 H (<0.60) mg/L FEU Sodium 125 L (137-145) mmol/L Chloride 94 L (98-107) mmol/L Carbon Dioxide 21 L (22-30) mmol/L BUN 18 H (7-17) mg/dL Glucose 154 H (74-99) mg/dL AST 37 H (14-36) U/L ALT 52 H (4-34) U/L Coronavirus (PCR) (Not Detectd) 07/26/21 Range/Units 18:53 WBC (3.8-10.6) k/uL Plt Count (150-450) k/uL Monocytes # (Manual) (0-1.0) k/uL Metamyelocytes # (Man) (0) k/uL APTT (22.0-30.0) sec D-Dimer (<0.60) mg/L FEU Sodium (137-145) mmol/L Chloride (98-107) mmol/L Carbon Dioxide (22-30) mmol/L BUN (7-17) mg/dL Glucose (74-99) mg/dL AST (14-36) U/L ALT (4-34) U/L Coronavirus (PCR) Detected A (Not Detectd) Thrombosis Risk Factor Assmnt - Choose All That Apply Each Risk Factor Represents 3 Points: Age 75 years or older Thrombosis Risk Factor Assessment Total Risk Factor Score: 3 Thrombosis Risk Factor Assessment Level: Moderate Risk Assessment and Plan Assessment: Bilateral Covid pneumonia Mild Acute hypoxic respiratory failure Increased inflammatory markers Hypertension History of seizure disorder History of CVA/TIA History of GERD Obesity with BMI of 32 Plan: This is a pleasant 86 years old female who presents with covid pneumonia Continue with dexamethasone Continue with vitamin C, vitamin D and zinc Infectious disease consult check urine analysis Labs and medication were reviewed.. Continue same treatment. Continue with symptomatic treatment. Resume home medication. Monitor lytes and vitals. DVT and GI prophylaxis. Further recommendations depends on the clinical course of the patient DVT prophylaxis: Subcutaneous heparin GI Prophylaxis: Pepcid PT/OT: Pending Prognosis is guarded
[2021-07-27 14:41] LABS: Appearance,Urine Clear (Clear); Bilirubin,Urine Negative (Negative); Blood,Urine Negative (Negative); Color,Urine Light Yellow; Glucose,Urine (UA) Negative (Negative); Ketones,Urine Negative (Negative); Leukocyte Esterase,Urine Small (Negative); Mucus,Urine Rare /hpf; Nitrite,Urine Negative (Negative); Protein,Urine Negative (Negative); RBC,Urine <1 /hpf (0-5); Urobilinogen,Urine <2.0 mg/dL (<2.0); WBC,Urine 5 /hpf (0-5)
[2021-07-27] MEDS ORDERED: AZITHROMYCIN 500 MG TAB PO SCH (18:00)
[2021-07-27] MEDS: LATANOPROST 0.005% OPHTH DROPS 2.5 ML BTL BOTH EYES SCH (22:51)
[2021-07-28] MEDS: ALBUTEROL HFA INHALER INHALATION PRN ×4 (08:25→20:43)
--- NOTE | 2021-07-28 08:50 | P.CONS ---
History of Present Illness - Reason for Consult Consult date: 07/27/21 covid 19 pneumonia Requesting physician: Homer E Sheet - Chief Complaint weakness and chest tightness x few days - History of Present Illness History of present illness : Patient is 86-year-old female who was evaluated on July 22 in ER with the symptoms of progressive weakness for few days and decreased appetite and almost passed out patient apparently was diagnosed with a COVID-19 4 days prior to that symptoms onset patient was given monoclonal antibody infusion and was subsequently discharged home with a prescription for vitamin C D3 and oral fluids patient is now presenting back to the hospital yesterday for evaluation of persistent weakness no energy patient complaining of some chest tightness and a cough which has been mild to moderate intensity but not bringing up any sputum patient denies having any vomiting did have some nausea decreased oral intake no abdominal pain or diarrhea on presentation to the hospital patient was afebrile patient is currently satting 95% on room air patient did have mild white count of 10.8 with no lymphopenia D- dimer was 0.77 creatinine 0.73 there was observed mildly elevated alves PCR positive again urine is negative patient did have a chest x-ray new mild peripheral interstitial infiltrate in both lungs compared to recent exam COPD with stable peripheral infiltrate on repeat x-ray that was done this morning patient was admitted to hospital infectious disease was consulted for further management Review of system: CONSTITUTIONAL: Positive for weakness denies fever. EYES: No complaint. ENT: No complaint. RESPIRATORY: As per history of present illness. CARDIOVASCULAR: No complaint. GENITOURINARY: No complaint. GASTROINTESTINAL: No complaint. MUSCULOSKELETAL: No complaint. INTEGUMENTARY: No complaint. PSYCHOLOGIC: No complaint. ENDOCRINE: No complaint. NEUROLOGIC: No complaint. Past medical history : Reviewed, documented below Past surgical history : Reviewed, documented below Social history: Reviewed, documented below Medications: Reviewed, as documented below EXAMINATION: Vital sigans= Reviewed and documented below GENERAL DESCRIPTION: Elderly female lying in bed, no distress. No tachypnea or accessory muscle of respiration use. HEENT: Shows Pallor , no scleral icterus. Oral mucous membrane is dry. NECK: Trachea central, no thyromegaly. LUNGS: Unlabored breathing. Decrease intensity of breath sounds. No wheeze or crackle. HEART: S1, S2, regular rate and rhythm. ABDOMEN: Soft, no tenderness , guarding or rigidity EXTREMITIES: No edema of feet. SKIN: No rash, no masses palpable. NEUROLOGICAL: The patient is awake, alert, oriented x3, mood and affect normal. LABS AND RADIOLOGY: Reviewed results see below Assessment : Patient is 86-year female presented to hospital with increasing weakness some chest tightness in this patient symptom has been going on since July 18 and has received monoclonal antibodies on July 22, 2021, patient did have evidence of mild pneumonia on the chest x-ray however the patient is not hypoxic clinically suspicious low for secondary bacterial pneumonia Plan: 1-we will check a procalcitonin level and if normal antibiotic will be discontinued 2-treatment is mostly supportive with Lovenox zinc and ascorbic acid steroids not recommended if the patient not hypoxic 3-droplet isolation and respiratory support We will follow on clinical condition and cultures to further adjust medication if needed Thank you for this consultation we will follow the patient along with you Past Medical History Past Medical History: CVA/TIA, GERD/Reflux, Hypertension, Seizure Disorder Additional Past Medical History / Comment(s): macular degeneration, glaucoma. History of Any Multi-Drug Resistant Organisms: None Reported Past Surgical History: Cholecystectomy, Hysterectomy, Tonsillectomy Past Psychological History: No Psychological Hx Reported Smoking Status: Former smoker Past Alcohol Use History: None Reported Past Drug Use History: None Reported Medications and Allergies Home Medications Medication Instructions Recorded Confirmed Type Latanoprost [Xalatan 0.005%] 1 drop BOTH EYES HS 08/13/18 07/26/21 History Lisinopril-Hctz 20-12.5 mg 1 tab PO DAILY 08/13/18 07/26/21 History [Zestoretic 20-12.5] Omeprazole [PriLOSEC] 20 mg PO DAILY 08/13/18 07/26/21 History Nystatin/Triamcin Cream [Mycolog 1 applic TOPICAL TID #60 gm 07/18/21 07/26/21 Rx 100,000-0.1 Unit/gm-% Cream] Albuterol Sulfate [Albuterol 4 puff PO RT-Q4H PRN 07/22/21 07/26/21 History Sulfate Hfa] Cholecalciferol [Vitamin D3 (25 25 mcg PO DAILY 07/22/21 07/26/21 History Mcg = 1000 Iu)] Zinc Sulfate [Orazinc] 220 mg PO DAILY 07/22/21 07/26/21 History Omeprazole Magnesium [PriLOSEC OTC] 20 mg PO DAILY 07/26/21 07/26/21 History Allergies Allergy/AdvReac Type Severity Reaction Status Date / Time blue dye Allergy Rash/Hives Verified 07/22/21 14:18 Physical Exam Vitals: Vital Signs Temp Pulse Resp BP Pulse Ox 07/28/21 06:36 97.8 F 75 15 144/73 95 07/28/21 02:00 98.1 F 80 16 119/67 95 07/27/21 22:00 98.0 F 82 16 107/62 95 07/27/21 20:00 16 07/27/21 14:00 98.4 F 79 16 116/67 95 07/27/21 10:00 98.1 F 113 H 18 138/79 92 L Intake and Output 07/27/21 07/28/21 07/28/21 22:59 06:59 14:59 Intake Total 900 Balance 900 Intake: IV 600 Sodium Chloride 0.9% 1, 600 000 ml @ 100 mls/hr IV . Q10H [facility] Rx#:[id number] Oral 300 Other: Voiding Method Toilet # Voids 5 2 # Bowel Movements 1 Results CBC & Chem 7: 07/26/21 16:41 07/26/21 16:41 Labs: Abnormal Lab Results - Last 24 Hours (Table) 07/27/21 Range/Units 14:00 Ur Leukocyte Esterase Small H (Negative) Urine Mucus Rare H (None) /hpf Microbiology - Last 24 Hours (Table) 07/26/21 17:30 Blood Culture - Preliminary Blood No Growth after 24 hours 07/26/21 19:45 Blood Culture - Preliminary Blood No Growth after 24 hours
[2021-07-28] MEDS ORDERED: FAMOTIDINE 20 MG/2 ML VIAL IV SCH (09:00)
[2021-07-28 09:23] LABS: Basophils # (A) 0.03 X 10*3/uL (0.00-0.10); Basophils % (A) 0.3 %; Eosinophils # (A) 0.04 X 10*3/uL (0.04-0.35); Eosinophils % (A) 0.5 %; HCT 37.9 % (37.2-46.3); HGB 12.5 g/dL (12.0-15.0); Lymphocytes # (A) 1.27 X 10*3/uL (0.90-5.00); Lymphocytes % (A) 14.6 %; MCH 29.2 pg (27.0-32.0); MCV 88.6 fL (80.0-97.0); Mean Platelet Volume 9.7 fL (9.5-12.2); Monocytes # (A) 0.84 X 10*3/uL (0.20-1.00); Monocytes % (A) 9.7 %; Neutrophils # (A) 6.26 X 10*3/uL (1.80-7.70); Neutrophils % (A) 71.9 %; Platelet Count 473 X 10*3/uL (140-440); RBC 4.28 X 10*6/uL (4.10-5.20); RDW 12.4 % (11.5-14.5)
[2021-07-28] MEDS: ENOXAPARIN 40 MG/0.4 ML SYRINGE SQ SCH (09:58)
[2021-07-28] MEDS: DEXAMETHASONE SOD PHOSPHATE 10 MG/ML 1 ML VIAL IVP SCH (09:59)
[2021-07-28] MEDS: ASCORBIC ACID 500 MG TAB PO SCH (09:59)
[2021-07-28] MEDS: PANTOPRAZOLE 40 MG TABLET PO SCH (09:59)
[2021-07-28] MEDS: CHOLECALCIFEROL 25 MCG (1000 IU) TABLET PO SCH (09:59)
[2021-07-28] MEDS: ZINC SULFATE 220 MG CAP PO SCH (09:59)
[2021-07-28] MEDS: LISINOPRIL-HCTZ 20-12.5 MG 1 EACH TAB PO SCH (10:00)
[2021-07-28] MEDS: SODIUM CHLORIDE 0.9% 1,000 ML IV SCH ×2 (10:00→19:41)
[2021-07-28 10:19] LABS: African American GFR (CKD) 78.5 (60.0-200.0); Albumin 3.5 g/dL (3.8-4.9); Albumin/Globulin Ratio 1.46 (1.60-3.17); Anion Gap 14.2 mmol/L (10.00-18.00); Blood Urea Nitrogen 10.4 mg/dL (9.0-27.0); Calcium 8.6 mg/dL (8.7-10.3); Carbon Dioxide 20.8 mmol/L (20.0-27.5); Globulin 2.4 g/dL (1.6-3.3); Magnesium 1.9 mg/dL (1.5-2.4); Non-African American GFR(CKD) 67.7 (60.0-200.0); Potassium 3.2 mmol/L (3.5-5.5); Total Bilirubin 0.5 mg/dL (0.30-1.20); Total Protein 5.9 g/dL (6.2-8.2)
[2021-07-28] MEDS ORDERED: POTASSIUM CHLORIDE ER 20 MEQ TAB.ER PO STA (10:55)
--- NOTE | 2021-07-28 11:20 | XR ---
EXAMINATION TYPE: XR chest 1V portable DATE OF EXAM: 07/28/2021 Comparison: 07/27/2021 Clinical History: 86-year-old female shortness of breath, covid Findings: Heart normal size. Aorta within normal limits. Hyperinflation. Patchy peripheral lower lung opacities persist. These are similar to slightly improved from prior. No pleural effusion. Impression: COPD with patchy peripheral lower lung COVID infiltrates. Similar to slightly improved from .
--- NOTE | 2021-07-28 18:43 | P.PN ---
Subjective This is a pleasant 89 years old female with past medical history of CVA/TIA, GERD, Hypertension, Seizure Disorder Patient states she came to the hospital because she was feeling poorly, she was not eating and she feeling weak since 07/18/2021. However she denies dyspnea. She has little over the phlegm, her phlegm is clear but she could not tell for home she has Patient was tested positive for Covid on 07/18/2021 and she is status post antibodies infusion on 07/22/2021. fatigue, no appetite, chest tightness, and cough. Pt states that she just isn't feeling well. Pt is not in respiratory distress. She denies abdominal pain or vomiting but she has diarrhea yesterday once or twice. She denies smoking, alcohol or illicit drugs. Currently she is saturating 94% on room air. WBC 10.8 K, Platelets 490, Lymphocytes Are Normal at 1.8. D-Dimer Elevated at 0.77. INR Is Normal at 0.9. Sodium 125, Creatinine Normal 0.7, Liver Enzymes Are Marginally Elevated AST 37 and ALT 52. Normal Bilirubin 1.3. Chest x-ray shows COPD with stable slightly increasing peripheral on both lung morocho, suspicious for mild pneumonia Coronavirus is detected. 07/28/2021 Patient currently doing well, she is in room air with no significant dyspnea while at rest. No chest pain. She tolerates diet well. Repeat chest x-ray showing slight improvement with some patchy infiltrates on both sides. procalcitonin is normal at 0.04 so antibiotics were discontinued. D-dimer is 1.1, CRP is 4.0. Meds on multiple vitamins Physical therapy evaluated the patient, patient did well Urine analysis is negative However patient does not feel ready to go home today and she was to stay in the hospital 1 more day for monitoring possible discharge in 24-48 hours if she keeps improving Objective - Vital Signs Vital signs: Vital Signs Temp 97 F L 07/28/21 14:19 Pulse 93 07/28/21 14:19 Resp 18 07/28/21 14:19 BP 161/70 07/28/21 14:19 Pulse Ox 94 L 07/28/21 14:19 Intake & Output 07/27/21 07/28/21 07/28/21 18:59 06:59 18:59 Intake Total 900 Balance 900 Intake: IV 600 Sodium Chloride 0.9% 1, 600 000 ml @ 100 mls/hr IV . Q10H [facility] Rx#:[id number] Oral 300 Other: Voiding Method Toilet Toilet # Voids 5 2 # Bowel Movements 1 - Exam GENERAL: The patient is alert and oriented x3, not in any acute distress. Well developed, well nourished. HEENT: Pupils are round and equally reacting to light. EOMI. No scleral icterus. No conjunctival pallor. Normocephalic, atraumatic. No pharyngeal erythema. No thyromegaly. CARDIOVASCULAR: S1 and S2 present. No murmurs, rubs, or gallops. PULMONARY: Chest is clear to auscultation, no wheezing or crackles. ABDOMEN: Soft, nontender, nondistended, normoactive bowel sounds. No palpable organomegaly. MUSCULOSKELETAL: No joint swelling or deformity. EXTREMITIES: No cyanosis, clubbing, or pedal edema. NEUROLOGICAL: Gross neurological examination did not reveal any focal deficits. SKIN: No rashes. no petechiae. - Labs CBC & Chem 7: 07/28/21 06:48 07/28/21 06:48 Labs: Abnormal Lab Results - Last 24 Hours (Table) 07/28/21 07/28/21 07/28/21 Range/Units 06:48 06:48 09:12 Plt Count 473 H (140-440) X 10*3/uL Immature Gran # 0.26 H (0.00-0.04) X 10*3/uL D-Dimer 1.17 H (<0.60) mg/L FEU Potassium 3.2 L (3.5-5.5) mmol/L Glucose 118 H (70-110) mg/dL Calcium 8.6 L (8.7-10.3) mg/dL ALT 50 H (8-44) U/L C-Reactive Protein (<1.0) mg/dL Total Protein 5.9 L (6.2-8.2) g/dL Albumin 3.5 L (3.8-4.9) g/dL Albumin/Globulin Ratio 1.46 L (1.60-3.17) g/dL 07/28/21 Range/Units 09:12 Plt Count (140-440) X 10*3/uL Immature Gran # (0.00-0.04) X 10*3/uL D-Dimer (<0.60) mg/L FEU Potassium (3.5-5.5) mmol/L Glucose (70-110) mg/dL Calcium (8.7-10.3) mg/dL ALT (8-44) U/L C-Reactive Protein 4.0 H (<1.0) mg/dL Total Protein (6.2-8.2) g/dL Albumin (3.8-4.9) g/dL Albumin/Globulin Ratio (1.60-3.17) g/dL Microbiology - Last 24 Hours (Table) 07/26/21 17:30 Blood Culture - Preliminary Blood No Growth after 24 hours 07/26/21 19:45 Blood Culture - Preliminary Blood No Growth after 24 hours Assessment and Plan Assessment: Bilateral Covid pneumonia Mild Acute hypoxic respiratory failure Increased inflammatory markers Hypertension History of seizure disorder History of CVA/TIA History of GERD Obesity with BMI of 32 Plan: This is a pleasant 86 years old female who presents with covid pneumonia Continue with dexamethasone Continue with vitamin C, vitamin D and zinc Infectious disease consult Discontinue antibiotics Labs and medication were reviewed.. Continue same treatment. Continue with symptomatic treatment. Resume home medication. Monitor lytes and vitals. DVT and GI prophylaxis. Further recommendations depends on the clinical course of the patient DVT prophylaxis: Subcutaneous heparin GI Prophylaxis: Pepcid PT/OT: Home Prognosis is guarded
[2021-07-28] MEDS: LATANOPROST 0.005% OPHTH DROPS 2.5 ML BTL BOTH EYES SCH (19:40)
--- NOTE | 2021-07-28 19:47 | PN ---
PROGRESS NOTE DATE OF SERVICE: 07/28/2021 REASON FOR FOLLOWUP: COVID-19 pneumonia. INTERVAL HISTORY: The patient is afebrile. The patient is currently breathing comfortably on room air. The patient denies having any chest pain. No shortness of breath. Occasional cough. No abdominal pain, no diarrhea. PHYSICAL EXAMINATION: Blood pressure 161/70 with a pulse of 93, temperature 97. She is 94% on room air. General description is an elderly female up in the bed in no distress. Respiratory system: Unlabored breathing, decreased intensity of breath sounds, no wheeze. Heart S1, S2. Regular rate and rhythm. Abdomen soft, no tenderness. LABS: Hemoglobin is 12.1, white count 8.70, D-dimer is 1.17. ( ) is normal. DIAGNOSTIC IMPRESSION AND PLAN: Patient admitted to the hospital with acute COVID-19 pneumonia in this patient who has received monoclonal antibodies. She is currently not hypoxic and will continue with no Lovenox, zinc and ascorbic acid. With normal procalcitonin, antibiotic will be discontinued as well. Family at the bedside. Questions and concerns were answered. MMODL / IJN: [id number] /
[2021-07-29] MEDS: SODIUM CHLORIDE 0.9% 1,000 ML IV SCH ×2 (04:53→18:02)
[2021-07-29] MEDS: ENOXAPARIN 40 MG/0.4 ML SYRINGE SQ SCH (08:53)
[2021-07-29] MEDS: CHOLECALCIFEROL 25 MCG (1000 IU) TABLET PO SCH (08:53)
[2021-07-29] MEDS: PANTOPRAZOLE 40 MG TABLET PO SCH (08:54)
[2021-07-29] MEDS: ASCORBIC ACID 500 MG TAB PO SCH (08:54)
[2021-07-29] MEDS: LISINOPRIL-HCTZ 20-12.5 MG 1 EACH TAB PO SCH (08:54)
[2021-07-29] MEDS: ZINC SULFATE 220 MG CAP PO SCH (08:54)
--- NOTE | 2021-07-29 11:37 | P.PN ---
Subjective This is a pleasant 89 years old female with past medical history of CVA/TIA, GERD, Hypertension, Seizure Disorder Patient states she came to the hospital because she was feeling poorly, she was not eating and she feeling weak since 07/18/2021. However she denies dyspnea. She has little over the phlegm, her phlegm is clear but she could not tell for home she has Patient was tested positive for Covid on 07/18/2021 and she is status post antibodies infusion on 07/22/2021. fatigue, no appetite, chest tightness, and cough. Pt states that she just isn't feeling well. Pt is not in respiratory distress. She denies abdominal pain or vomiting but she has diarrhea yesterday once or twice. She denies smoking, alcohol or illicit drugs. Currently she is saturating 94% on room air. WBC 10.8 K, Platelets 490, Lymphocytes Are Normal at 1.8. D-Dimer Elevated at 0.77. INR Is Normal at 0.9. Sodium 125, Creatinine Normal 0.7, Liver Enzymes Are Marginally Elevated AST 37 and ALT 52. Normal Bilirubin 1.3. Chest x-ray shows COPD with stable slightly increasing peripheral on both lung morocho, suspicious for mild pneumonia Coronavirus is detected. 07/28/2021 Patient currently doing well, she is in room air with no significant dyspnea while at rest. No chest pain. She tolerates diet well. Repeat chest x-ray showing slight improvement with some patchy infiltrates on both sides. procalcitonin is normal at 0.04 so antibiotics were discontinued. D-dimer is 1.1, CRP is 4.0. Meds on multiple vitamins Physical therapy evaluated the patient, patient did well Urine analysis is negative However patient does not feel ready to go home today and she was to stay in the hospital 1 more day for monitoring possible discharge in 24-48 hours if she keeps improving 07/29/2021 Patient this morning she was doing well and she was still initially wanted to go home, she denies any respiratory symptoms no chest pain or dyspnea or cough. Her Vitas looks stable and she is afebrile Chest x-ray from yesterday has been reviewed at looks his stable Also her labs are stable. She is only on vitamins and Lovenox and Protonix. Antibiotics were discontinued by infectious disease team because of normal pro-calcitonin with no evidence of bacterial infection. After discharge the patient she change her mind stating that she is so weak and preferred to stay in the hospital today. We'll keep monitoring and check the patient tomorrow Objective - Vital Signs Vital signs: Vital Signs Temp 96.5 F L 07/29/21 10:00 Pulse 74 07/29/21 10:00 Resp 18 07/29/21 10:00 BP 175/87 07/29/21 10:00 Pulse Ox 97 07/29/21 10:00 Intake & Output 07/28/21 07/29/21 07/29/21 18:59 06:59 18:59 Other: Voiding Method Toilet # Voids 5 2 # Bowel Movements 0 - Exam GENERAL: The patient is alert and oriented x3, not in any acute distress. Well developed, well nourished. HEENT: Pupils are round and equally reacting to light. EOMI. No scleral icterus. No conjunctival pallor. Normocephalic, atraumatic. No pharyngeal erythema. No thyromegaly. CARDIOVASCULAR: S1 and S2 present. No murmurs, rubs, or gallops. PULMONARY: Chest is clear to auscultation, no wheezing or crackles. ABDOMEN: Soft, nontender, nondistended, normoactive bowel sounds. No palpable organomegaly. MUSCULOSKELETAL: No joint swelling or deformity. EXTREMITIES: No cyanosis, clubbing, or pedal edema. NEUROLOGICAL: Gross neurological examination did not reveal any focal deficits. SKIN: No rashes. no petechiae. - Labs CBC & Chem 7: 07/28/21 06:48 07/28/21 06:48 Labs: Microbiology - Last 24 Hours (Table) 07/26/21 17:30 Blood Culture - Preliminary Blood No Growth after 48 hours 07/26/21 19:45 Blood Culture - Preliminary Blood No Growth after 48 hours Assessment and Plan Assessment: Bilateral Covid pneumonia Mild Acute hypoxic respiratory failure Increased inflammatory markers Hypertension History of seizure disorder History of CVA/TIA History of GERD Obesity with BMI of 32 Plan: This is a pleasant 86 years old female who presents with covid pneumonia Continue with dexamethasone Continue with vitamin C, vitamin D and zinc Infectious disease consult Discontinue antibiotics Labs and medication were reviewed.. Continue same treatment. Continue with symptomatic treatment. Resume home medication. Monitor lytes and vitals. DVT and GI prophylaxis. Further recommendations depends on the clinical course of the patient DVT prophylaxis: Subcutaneous heparin GI Prophylaxis: Pepcid PT/OT: Home Prognosis is guarded
[2021-07-29] MEDS: ALBUTEROL HFA INHALER INHALATION PRN (11:55)
[2021-07-29] MEDS ORDERED: CALCIUM CARBONATE 500 MG CHEWABLE PO PRN (13:09)
[2021-07-29] MEDS: LATANOPROST 0.005% OPHTH DROPS 2.5 ML BTL BOTH EYES SCH (19:57)
--- NOTE | 2021-07-29 20:39 | PN ---
PROGRESS NOTE DATE OF SERVICE: 07/29/2021 REASON FOR FOLLOWUP: Covid 19 pneumonia. INTERVAL HISTORY: Patient is afebrile. The patient is currently breathing comfortably on room air; however, mentioned not feeling that good. The patient denies having any chest pain. She did have some cough, not bringing up any sputum. No abdominal pain or diarrhea. PHYSICAL EXAMINATION: Blood pressure 135/87, pulse of 74, temperature of 96.5. She is 97% on room air. General description is an elderly female lying in bed in no distress. Respiratory system: Unlabored breathing, decreased intensity of breath sounds. No wheeze. Heart S1, S2. Regular rate and rhythm. Abdomen: Soft. No tenderness. Extremities: No edema of the feet. LABS: No new labs have been obtained today. Blood culture negative. DIAGNOSTIC IMPRESSION AND PLAN: Patient hospital with weakness secondary to COVID-19 pneumonia in this patient with no hypoxemia. The patient is currently on supportive treatment in the form of Lovenox, zinc and ascorbic acid to continue along with supportive treatment and monitor clinical course closely. MMODL / IJN: [id number] /
[2021-07-30] MEDS: ALBUTEROL HFA INHALER INHALATION PRN (07:51)
[2021-07-30] MEDS: LISINOPRIL-HCTZ 20-12.5 MG 1 EACH TAB PO SCH (08:15)
[2021-07-30] MEDS: ENOXAPARIN 40 MG/0.4 ML SYRINGE SQ SCH (08:15)
[2021-07-30] MEDS: ASCORBIC ACID 500 MG TAB PO SCH (08:15)
[2021-07-30] MEDS: CHOLECALCIFEROL 25 MCG (1000 IU) TABLET PO SCH (08:15)
[2021-07-30] MEDS: PANTOPRAZOLE 40 MG TABLET PO SCH (08:15)
[2021-07-30] MEDS: ZINC SULFATE 220 MG CAP PO SCH (08:15)
[2021-07-30] MEDS: SODIUM CHLORIDE 0.9% 1,000 ML IV SCH (08:15)
[2021-07-30 09:40] LABS: C Reactive Protein 0.5 mg/dL (0.00-0.80)
--- NOTE | 2021-07-30 10:59 | XR ---
EXAMINATION TYPE: XR chest 1V DATE OF EXAM: 07/30/2021 COMPARISON: 07/28/2021 HISTORY: 86 years Female. STUDY INDICATION GIVEN: covid . TECHNIQUE: AP upright chest radiograph IMPRESSION: Increased bilateral peripheral and basilar patchy and interstitial opacities which are likely reflect nidhi of airspace disease, atelectasis and possibly interstitial lung disease. 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 Normal cardiomediastinal silhouette. No pneumothorax or large effusion. No acute o sseous abnormalities seen.
--- NOTE | 2021-07-30 14:56 | P.PN ---
Subjective Progress Note Date: 07/30/21 Principal diagnosis: weakness 86-year-old white female patient with past medical history of hypertension, CAD/TIA, former smoker, macular degeneration and glaucoma who presented to the emergency department on 07/26/2021 complaining of generalized weakness, decreased appetite chest tightness and just generally feeling very tired. Patient had a recent ER visit for COVID-19 and syncope. Patient refused to be admitted at that time. Patient tested positive for COVID-19. Her chest x-ray did not show any acute cardiopulmonary disease at the time. Patient refused further workup for the syncopal episode. Patient was emergency department again on 07/22/2021 with weakness and dehydration, she received some IV hydration, she was feeling better. Patient received monoclonal antibody infusion on 07/22/2021. Denied any abdominal pain, no vomiting, she did have an episode of diarrhea once or twice. Her chest x-ray on 07/26/2021 showed some coarse density in the periphery of both mid lungs, with the possibility of mild pneumonia. Admission blood work has been reviewed showing white blood cell count of 10.8, hemoglobin of 14.7, platelet count of 490 d-dimer was 0.77, s odium is 125, potassium is 3.7, chloride is 94, BUN is 18, creatinine 0.73, AST was 37, ALT was 52, alk phos was within normal limits at 64, troponin is 0.014. ProBNP was 268, pro calcitonin level was negative at 0.04, urinalysis showed small amount of leuks, but no definite sign of infection. Patient has remained on room air the whole time she's been in the hospital, she remains on room air with pulse ox of 95-96%, breathing comfortably, no cough, no complaint of chest discomfort, she states she just feels weak, and tired. Has had no fever or chills. She was not a candidate for any Remdesivir or Decadron. Objective - Vital Signs Vital signs: Vital Signs Temp 96.1 F L 07/30/21 14:00 Pulse 91 07/30/21 14:00 Resp 18 07/30/21 14:00 BP 169/90 07/30/21 14:00 Pulse Ox 95 07/30/21 14:00 Intake & Output 12/25/21 12/26/21 12/26/21 18:59 06:59 18:59 Other: # Voids 1 - Exam GENERAL EXAM: Awake and alert, 86-year-old white female, on room air breathing comfortably, resting in bed, with pulse ox of 95%, comfortable in no apparent distress. HEAD: Normocephalic/atraumatic. EYES: Normal reaction of pupils, equal size. Conjunctiva pink, sclera white. NOSE: Clear with pink turbinates. THROAT: No erythema or exudates. NECK: No masses, no JVD, no thyroid enlargement, no adenopathy. CHEST: No chest wall deformity. Symmetrical expansion. LUNGS: Equal air entry with no crackles, wheeze, rhonchi or dullness. CVS: Regular rate and rhythm, normal S1 and S2, no gallops, no murmurs, no rubs ABDOMEN: Soft, nontender. No hepatosplenomegaly, normal bowel sounds, no guarding or rigidity. EXTREMITIES: No clubbing, no edema, no cyanosis, 2+ pulses and upper and lower extremities. MUSCULOSKELETAL: Muscle strength and tone normal. SPINE: No scoliosis or deformity SKIN: No rashes CENTRAL NERVOUS SYSTEM: Alert and oriented -3. No focal deficits, tone is normal in all 4 extremities. PSYCHIATRIC: Alert and oriented -3. Appropriate affect. Intact judgment and insight. - Labs CBC & Chem 7: 07/28/21 06:48 07/28/21 06:48 Labs: Microbiology - Last 24 Hours (Table) 07/26/21 17:30 Blood Culture - Preliminary Blood No Growth after 72 hours 07/26/21 19:45 Blood Culture - Preliminary Blood No Growth after 72 hours Assessment and Plan Plan: Assessment: #1. Acute COVID-19 infection, initially diagnosed on 07/18/2021 when she came in to the emergency department. Initial chest x-ray showed no acute cardiopulmonary process. On 07/22/2021 patient return to the emergency department for reevaluation of continued weakness, and patient received monoclonal antibodies at that time. Was discharged home at her request, on 07/26/2021 patient returns for reevaluation with ongoing weakness, decreased appetite and then generally feeling tired. Not a candidate for Remdesivir #2. Progressive weakness, decreased appetite, dehydration, and near syncopal episode at home. She was seen in the emergency department twice, however insisted on going home, refused workup for the syncopal episode #3. History of CVA #4. Hypertension #5. Seizure disorder #6. Macular degeneration, glaucoma #7. Former smoker Plan: Patient is not a candidate for Remdesivir or Decadron She is on room air, and denies any pulmonary symptoms Chest x-ray has been reviewed Patient has been stable since admission, vital signs are stable, afebrile She could be considered for discharge home today from pulmonary perspective once cleared by medicine I performed a history & physical examination of the patient and discussed their management with my nurse practitioner, Justyna Schumacher. I reviewed the nurse practitioner's note and agree with the documented findings and plan of care. Lung sounds are positive for dim breath sounds throughout the lung morocho. The findings and the impression was discussed with the patient. I attest to the documentation by the nurse practitioner. Time with Patient: Greater than 30
[2021-07-30 18:01] VITALS: BP 158/81; PULSE 78; RESP 16; TEMP 97.9
--- NOTE | 2021-07-30 20:46 | P.DS ---
Providers Date of admission: 07/26/21 17:52 Attending physician: Homer Guzman MD Consults: 07/27/21 08:06 Consult Physician Urgent Consulting Provider: Jon Dominique Consult Reason/Comments: covid Do you want consulting provider notified?: Yes 07/30/21 11:18 Consult Physician Urgent Consulting Provider: Lalo Waite Consult Reason/Comments: covid with worsening cxr Do you want consulting provider notified?: Yes Primary care physician: John Fernandez Hospital Course: Diagnoses: Bilateral Covid pneumonia, asymptomatic. Cleared for discharge by account assistant Generalized weakness secondary to above viral infection, improving Increased inflammatory markers Hypertension History of seizure disorder History of CVA/TIA History of GERD Obesity with BMI of 32 Hospital course: This is a pleasant 86 years old female with past medical history of CVA/TIA, GERD, Hypertension, Seizure Disorder Patient states she came to the hospital because she was feeling poorly, she was not eating and she feeling weak since 07/18/2021. Patient was tested positive for Covid on 07/18/2021 and she is status post antibodies infusion on 07/22/2021. She denies dyspnea or chest pain. No coughing. No abdominal pain or diarrhea. No urinary symptoms. No fever her main symptoms are weakness and she's been evaluated by physical therapist recommended patient undergo home. Patient improving gradually every day but not back to normal. Today her chest x-ray shows some worsening but again patient is asymptomatic on room air, therefore pulmonary consult was obtained. Patient is not a candidate for the control or remdesivir they cleared her for discharge. Patient agreeable to go home today. She remains asymptomatic and her only problem was weakness which is again improving gradually Patient was cleared for discharge by account assistant Problems and management plan were discussed with the patient and he verbalized understanding and acceptance Patient was found stable and can be discharged home however he needs follow-up as an outpatient. Patient was instructed to follow up with PCP Dr. Fernandez within one week and patient agrees Patient was instructed to follow up with account assistant Dr. sanchez in 2 weeks and she agrees to call and make her own appointments as today is weakened Physical exam Gen: patient is a AAOx3, no distress CVS: S1-S2, RRR, no murmur Lungs: B/L CTA, no wheezing Abdomen: soft, no distention, no tenderness, positive bowel sounds Extremity: no leg edema or induration Time spent more than 35 minutes Patient Condition at Discharge: Fair Plan - Discharge Summary Discharge Rx Participant: No New Discharge Prescriptions: New Ascorbic Acid [Vitamin C] 1,000 mg PO DAILY #60 tab Cholecalciferol [Vitamin D3 (25 Mcg = 1000 Iu)] 25 mcg PO DAILY #30 tablet Continue Omeprazole [PriLOSEC] 20 mg PO DAILY Lisinopril-Hctz 20-12.5 mg [Zestoretic 20-12.5] 1 tab PO DAILY Latanoprost [Xalatan 0.005%] 1 drop BOTH EYES HS Nystatin/Triamcin Cream [Mycolog 100,000-0.1 Unit/gm-% Cream] 1 applic TOPICAL TID #60 gm Cholecalciferol [Vitamin D3 (25 Mcg = 1000 Iu)] 25 mcg PO DAILY Albuterol Sulfate [Albuterol Sulfate Hfa] 4 puff PO RT-Q4H PRN PRN Reason: Cough Omeprazole Magnesium [PriLOSEC OTC] 20 mg PO DAILY Zinc Sulfate [Orazinc] 220 mg PO DAILY #15 cap Discharge Medication List Latanoprost [Xalatan 0.005%] 1 drop BOTH EYES HS 08/13/18 [History] Lisinopril-Hctz 20-12.5 mg [Zestoretic 20-12.5] 1 tab PO DAILY 08/13/18 [History] Omeprazole [PriLOSEC] 20 mg PO DAILY 08/13/18 [History] Nystatin/Triamcin Cream [Mycolog 100,000-0.1 Unit/gm-% Cream] 1 applic TOPICAL TID #60 gm 07/18/21 [Rx] Albuterol Sulfate [Albuterol Sulfate Hfa] 4 puff PO RT-Q4H PRN 07/22/21 [History] Cholecalciferol [Vitamin D3 (25 Mcg = 1000 Iu)] 25 mcg PO DAILY 07/22/21 [History] Omeprazole Magnesium [PriLOSEC OTC] 20 mg PO DAILY 07/26/21 [History] Ascorbic Acid [Vitamin C] 1,000 mg PO DAILY #60 tab 07/29/21 [Rx] Cholecalciferol [Vitamin D3 (25 Mcg = 1000 Iu)] 25 mcg PO DAILY #30 tablet 07/29/21 [Rx] Zinc Sulfate [Orazinc] 220 mg PO DAILY #15 cap 07/29/21 [Rx] Follow up Appointment(s)/Referral(s): John Fernandez MD [Primary Care Provider] - 1-2 days Lalo Waite MD [STAFF PHYSICIAN] - 2 Weeks Patient Instructions/Handouts: Community Acquired Pneumonia (DC) Activity/Diet/Wound Care/Special Instructions: heart heathy diet activity is restricted till you see your doctor Discharge Disposition: HOME SELF-CARE
--- NOTE | 2021-07-30 21:55 | P.PN ---
Progress Note - Text Progress Note Date: 07/30/21 REASON FOR FOLLOWUP: Covid 19 pneumonia. INTERVAL HISTORY: Patient remains to be afebrile. The patient is breathing comfortably on room air, The patient denies having any chest pain. She did have some cough, not bringing up any sputum. No abdominal pain or diarrhea. PHYSICAL EXAMINATION: Blood pressure 130/80, pulse of 70, temperature of 96.5. She is 97% on room air. General description is an elderly female lying in bed in no distress. Respiratory system: Unlabored breathing, decreased intensity of breath sounds. No wheeze. Heart S1, S2. Regular rate and rhythm. Abdomen: Soft. No tenderness. Extremities: No edema of the feet. LABS: chest xray results reviewed. DIAGNOSTIC IMPRESSION AND PLAN: Patient hospital with weakness secondary to COVID-19 pneumonia in this patient with no hypoxemia. The patient is currently on supportive treatment in the form of Lovenox, zinc and ascorbic acid to finish therapy with short course of zinc and vitamin c no steroids
== END 2021-07-30 18:19 | disposition home or self-care (01) | DRG 177 ==
LOC: EC 15:54 → 4SSUR 17:52
PROVIDERS: ADMIT Internal Medicine; ATTEND Internal Medicine
DX: U07.1 COVID-19 (principal); J12.82 Pneumonia due to coronavirus disease 2019; J96.01 Acute respiratory failure with hypoxia; E87.1 Hypo-osmolality and hyponatremia; J44.0 Chronic obstructive pulmonary disease with (acute) lower respiratory infection; R62.7 Adult failure to thrive; E86.0 Dehydration; I10 Essential (primary) hypertension; I25.10 Atherosclerotic heart disease of native coronary artery without angina pectoris; K21.9 Gastro-esophageal reflux disease without esophagitis; H35.30 Unspecified macular degeneration; H40.9 Unspecified glaucoma; E66.9 Obesity, unspecified; Z68.32 Body mass index [BMI] 32.0-32.9, adult; Z90.49 Acquired absence of other specified parts of digestive tract; Z79.899 Other long term (current) drug therapy; Z87.891 Personal history of nicotine dependence; Z86.73 Personal history of transient ischemic attack (TIA), and cerebral infarction without residual deficits; Z90.710 Acquired absence of both cervix and uterus; Z90.89 Acquired absence of other organs; Z87.19 Personal history of other diseases of the digestive system; Z87.42 Personal history of other diseases of the female genital tract; Z86.69 Personal history of other diseases of the nervous system and sense organs; Z98.890 Other specified postprocedural states; Z91.02 Food additives allergy status
CPT/HCPCS: 36415; 71045; 71046; 80053; 81001; 83605; 83615; 83735; 83880; 84145; 84484; 85025; 85379; 85610; 85730; 86140; 87040; 87635; 93005; 94640; 99285

== ENCOUNTER 2022-08-25 11:06 | Emergency (ER) | payer MEDICARE ==
[2022-08-25 11:22] VITALS: TEMP 97.6
[2022-08-25] MEDS ORDERED: CARBAMIDE PEROXIDE 6.5% DROPS 15 ML BTL BOTH EARS STA (11:38)
--- NOTE | 2022-08-25 12:03 | ED ---
General Adult HPI - General Chief complaint: Recheck/Abnormal Lab/Rx Stated complaint: HTN Time Seen by Provider: 08/25/22 11:26 Source: patient Mode of arrival: ambulatory - History of Present Illness Initial comments: Patient is an 87-year-old female who presents to the emergency department for evaluation of high blood pressure. Patient has history of hypertension, she takes lisinopril-hydrochlorothiazide 2012.5 mg daily. Patient was at the eye doctor on Saturday for her macular degeneration during which her blood pressure was 190/100. Patient checked her blood pressure yesterday at home, 160/90. Today she woke up with ringing in her ears which made her come to the emergency department. She did not check her blood pressure today. She has been taking her medication as directed. She denies chest pain, shortness of breath, dizziness, lightheadedness. Denies ear pain, headache. Patient has appointment with Dr. Fernandez on Saturday. - Related Data Home Medications Medication Instructions Recorded Confirmed Latanoprost [Xalatan 0.005%] 1 drop BOTH EYES HS 08/13/18 07/26/21 Lisinopril-Hctz 20-12.5 mg 1 tab PO DAILY 08/13/18 07/26/21 [Zestoretic 20-12.5] Omeprazole [PriLOSEC] 20 mg PO DAILY 08/13/18 07/26/21 Albuterol Sulfate [Albuterol 4 puff PO RT-Q4H PRN 07/22/21 07/26/21 Sulfate Hfa] Cholecalciferol [Vitamin D3 (25 25 mcg PO DAILY 07/22/21 07/26/21 Mcg = 1000 Iu)] Omeprazole Magnesium [PriLOSEC OTC] 20 mg PO DAILY 07/26/21 07/26/21 Previous Rx's Medication Instructions Recorded Nystatin/Triamcin Cream [Mycolog 1 applic TOPICAL TID #60 gm 07/18/21 100,000-0.1 Unit/gm-% Cream] Ascorbic Acid [Vitamin C] 1,000 mg PO DAILY #60 tab 07/29/21 Cholecalciferol [Vitamin D3 (25 25 mcg PO DAILY #30 tablet 07/29/21 Mcg = 1000 Iu)] Zinc Sulfate [Orazinc] 220 mg PO DAILY #15 cap 07/29/21 Allergies Allergy/AdvReac Type Severity Reaction Status Date / Time blue dye Allergy Rash/Hives Verified 08/25/22 11:22 Review of Systems ROS Statement: Those systems with pertinent positive or pertinent negative responses have been documented in the HPI. ROS Other: All systems not noted in ROS Statement are negative. Past Medical History Past Medical History: CVA/TIA, GERD/Reflux, Hypertension, Seizure Disorder Additional Past Medical History / Comment(s): macular degeneration, glaucoma. History of Any Multi-Drug Resistant Organisms: None Reported Past Surgical History: Cholecystectomy, Hysterectomy, Tonsillectomy Past Psychological History: No Psychological Hx Reported Smoking Status: Former smoker Past Alcohol Use History: None Reported Past Drug Use History: None Reported General Exam General appearance: alert, in no apparent distress Head exam: Present: atraumatic, normocephalic, normal inspection ENT exam: Present: normal external ear exam. Absent: TM's normal bilaterally (b/l cerumen impaction, little visualization of TM) Neck exam: Present: normal inspection, full ROM, other. Absent: tenderness Respiratory exam: Present: normal lung sounds bilaterally. Absent: respiratory distress, wheezes, rales, rhonchi, stridor Cardiovascular Exam: Present: regular rate, normal rhythm, normal heart sounds. Absent: systolic murmur, diastolic murmur, rubs, gallop, clicks Extremities exam: Present: normal inspection, normal capillary refill. Absent: pedal edema Neurological exam: Present: alert, oriented X3, CN II-XII intact Psychiatric exam: Present: normal affect, normal mood Skin exam: Present: warm, dry, intact, normal color. Absent: rash Course Vital Signs 08/25/22 08/25/22 11:20 12:43 Temperature 97.6 F Pulse Rate 100 85 Respiratory 16 18 Rate Blood Pressure 156/70 159/74 O2 Sat by Pulse 98 97 Oximetry Medical Decision Making - Medical Decision Making Was pt. sent in by a medical professional or institution (, PA, TREASURY REPRESENTATIVE, urgent care, hospital, or long term...) When possible be specific @ -[No] Did you speak to anyone other than the patient for history (EMS, parent, family, police, friend...)? What history was obtained from this source @ -[No] Did you review nursing and triage notes (agree or disagree)? Why? @ -[I reviewed and agree with nursing and triage notes] Were old charts reviewed (outside hosp., previous admission, EMS record, old EKG, old radiological studies, urgent care reports/EKG's, long term records)? Report findings @ -Yes, EKG compared with previous on 07/26/21. There are some borderline T- wave inversions in the lateral leads in comparison to previous Differential Diagnosis (chest pain, altered mental status, abdominal pain women, abdominal pain men, vaginal bleeding, weakness, fever, dyspnea, syncope, headache, dizziness, GI bleed, back pain, seizure, CVA, palpatations, mental health)? @ -Mnire's disease, hypertensive urgency, cerumen impaction, acute otitis media EKG interpreted by me (3pts min.). @ -[As above] X-rays interpreted by me (1pt min.). @ -Chest x-ray negative for acute process CT interpreted by me (1pt min.). @ -[None done] U/S interpreted by me (1pt. min.). @ -[None done] What testing was considered but not performed or refused? (CT, X-rays, U/S, labs)? Why? @ -[None] What meds were considered but not given or refused? Why? @ -Considered hypertension medication however blood pressures within acceptable limits Did you discuss the management of the patient with other professionals (professionals i.e. , PA, TREASURY REPRESENTATIVE, lab, RT, psych nurse, social services specialist, supervisor hydrochloric area, teacher, sergeant of officers, renal case manager)? Give summary @ -[No] Was smoking cessation discussed for >3mins.? @ -[No] Was critical care preformed (if so, how long)? @ -[No] Were there social determinants of health that impacted care today? How? (Homelessness, low income, unemployed, alcoholism, drug addiction, transportation, low edu. Level, literacy, decrease access to med. care, correction, rehab)? @ -[No] Was there de-escalation of care discussed even if they declined (Discuss DNR or withdrawal of care, Hospice)? DNR status @ -[No] What co-morbidities impacted this encounter? (DM, HTN, Smoking, COPD, CAD, Cancer, CVA, ARF, Chemo, Hep., AIDS, mental health diagnosis, sleep apnea, morbid obesity)? @ -HTN Was patient admitted / discharged? Hospital course, mention meds given and route, prescriptions, significant lab abnormalities, going to OR and other pertinent info. @ -This is an 87-year-old female presenting for evaluation of high blood pressure. Blood pressure is 156/70. EKG shows some borderline T-wave i nversions in the lateral leads in comparison to previous on 07/26/21. No chest pain or shortness of breath. Laboratory studies, urinalysis unremarkable. Patient has bilateral cerumen impaction. Debrox given. Blood pressure and stable during emergency stay. No need for acute treatment. Patient will follow-up in Dr. Fernandez's office on Saturday. Patient to check her blood pressure twice a day, recording measurements. Return parameters discussed. Undiagnosed new problem with uncertain prognosis? @ -[No] Drug Therapy requiring intensive monitoring for toxicity (Heparin, Nitro, Insulin, Cardizem)? @ -[No] Were any procedures done? @ -[No] Diagnosis/symptom? @ -high blood pressure Acute, or Chronic, or Acute on Chronic? @ -acute on chronic Uncomplicated (without systemic symptoms) or Complicated (systemic symptoms)? @ -uncomplicated Side effects of treatment? @ -[No] Exacerbation, Progression, or Severe Exacerbation? @ -[No] Poses a threat to life or bodily function? How? (Chest pain, [place], [place], pneumonia, PE, COPD, DKA, ARF, appy, cholecystitis, CVA, Diverticulitis, Homicidal, Suicidal, threat to staff... and all critical care pts) @ -[No] Dr. Mckinney is my attending. - Lab Data Result diagrams: 08/25/22 11:47 08/25/22 11:47 Lab Results 08/25/22 08/25/22 08/25/22 Range/Units 11:47 11:47 11:47 WBC 7.2 (3.8-10.6) k/uL RBC 4.71 (3.80-5.40) m/uL Hgb 14.2 (11.4-16.0) gm/dL Hct 42.6 (34.0-46.0) % MCV 90.5 (80.0-100.0) fL MCH 30.2 (25.0-35.0) pg MCHC 33.4 (31.0-37.0) g/dL RDW 12.6 (11.5-15.5) % Plt Count 353 (150-450) k/uL MPV 8.0 Neutrophils % (Manual) 65 % Lymphocytes % (Manual) 25 % Monocytes % (Manual) 9 % Eosinophils % (Manual) 1 % Neutrophils # (Manual) 4.68 (1.3-7.7) k/uL Lymphocytes # (Manual) 1.80 (1.0-4.8) k/uL Monocytes # (Manual) 0.65 (0-1.0) k/uL Eosinophils # (Manual) 0.07 (0-0.7) k/uL Nucleated RBCs 0 (0-0) /100 WBC Manual Slide Review Performed RBC Morphology Normal Sodium 137 (137-145) mmol/L Potassium 4.1 (3.5-5.1) mmol/L Chloride 99 (98-107) mmol/L Carbon Dioxide 27 (22-30) mmol/L Anion Gap 11 mmol/L BUN 17 (7-17) mg/dL Creatinine 0.90 (0.52-1.04) mg/dL Est GFR (CKD-EPI)AfAm 68 (>60 ml/min/1.73 sqM) Est GFR (CKD-EPI)NonAf 59 (>60 ml/min/1.73 sqM) Glucose 218 H (74-99) mg/dL Calcium 9.7 (8.4-10.2) mg/dL Total Bilirubin 1.1 (0.2-1.3) mg/dL AST 25 (14-36) U/L ALT 18 (4-34) U/L Alkaline Phosphatase 78 (38-126) U/L Total Protein 7.7 (6.3-8.2) g/dL Albumin 4.8 (3.5-5.0) g/dL Urine Color Colorless Urine Appearance Clear (Clear) Urine pH 6.0 (5.0-8.0) Ur Specific [place] 1.003 (1.001-1.035) Urine Protein Negative (Negative) Urine Glucose (UA) Negative (Negative) Urine Ketones Negative (Negative) Urine Blood Negative (Negative) Urine Nitrite Negative (Negative) Urine Bilirubin Negative (Negative) Urine Urobilinogen <2.0 (<2.0) mg/dL Ur Leukocyte Esterase Trace H (Negative) Urine RBC 1 (0-5) /hpf Urine WBC 3 (0-5) /hpf Ur Squamous Epith Cells <1 (0-4) /hpf Hyaline Casts 1 (0-2) /lpf Disposition Clinical Impression: Tinnitus, High blood pressure Disposition: HOME SELF-CARE Condition: Good Instructions (If sedation given, give patient instructions): Hypertension (ED) Additional Instructions: Follow-up with Dr. Fernandez on Saturday as planned. Continue putting eardrops in until then. Return to the emergency department if you experience new, concerning, or worsening symptoms. Is patient prescribed a controlled substance at d/c from ED?: No Referrals: John Fernandez MD [Primary Care Provider] - 1-2 days
[2022-08-25 12:16] LABS: HCT 42.6 % (34.0-46.0); HGB 14.2 gm/dL (11.4-16.0); MCH 30.2 pg (25.0-35.0); MCHC 33.4 g/dL (31.0-37.0); MCV 90.5 fL (80.0-100.0); Platelet Count 353 k/uL (150-450); RBC 4.71 m/uL (3.80-5.40); RDW 12.6 % (11.5-15.5); WBC 7.2 k/uL (3.8-10.6)
[2022-08-25 12:22] LABS: Albumin 4.8 g/dL (3.5-5.0); Calcium 9.7 mg/dL (8.4-10.2); Potassium 4.1 mmol/L (3.5-5.1); Total Bilirubin 1.1 mg/dL (0.2-1.3); Total Protein 7.7 g/dL (6.3-8.2)
[2022-08-25 12:30] LABS: Nucleated Red Blood Cells 0 /100 WBC (0-0)
[2022-08-25 12:32] LABS: Eosinophils # (M) 0.07 k/uL (0-0.7); Monocytes # (M) 0.65 k/uL (0-1.0); Neutrophils # (M) 4.68 k/uL (1.3-7.7); Neutrophils % (M) 65 %; Total Cells Counted 100
[2022-08-25 12:33] LABS: RBC Morphology Normal
[2022-08-25 12:44] VITALS: BP 159/74; PULSE 85; RESP 18
--- NOTE | 2022-08-25 12:45 | XR ---
EXAMINATION TYPE: XR chest 2V DATE OF EXAM: 08/25/2022 COMPARISON: 09/04/2021 HISTORY: Hypertension TECHNIQUE: Frontal and lateral views of the chest are obtained. FINDINGS: There is no focal air space opacity, pleural effusion, or pneumothorax seen. The cardiac silhouette size is within normal limits. The osseous structures are intact. There is a small hiatal hernia. IMPRESSION: No acute cardiopulmonary process. There is a small hiatal hernia.
[2022-08-25 13:01] LABS: Appearance,Urine Clear (Clear); Bilirubin,Urine Negative (Negative); Blood,Urine Negative (Negative); Color,Urine Colorless; Glucose,Urine (UA) Negative (Negative); Hyaline Casts,Urine 1 /lpf (0-2); Ketones,Urine Negative (Negative); Leukocyte Esterase,Urine Trace (Negative); Nitrite,Urine Negative (Negative); Protein,Urine Negative (Negative); RBC,Urine 1 /hpf (0-5); Specific Gravity,Urine 1.003 (1.001-1.035); Squamous Epithelial Cell,Urine <1 /hpf (0-4); Urobilinogen,Urine <2.0 mg/dL (<2.0); WBC,Urine 3 /hpf (0-5)
== END 2022-08-25 13:20 | disposition home or self-care (01) ==
LOC: EC 11:06
DX: I10 Essential (primary) hypertension (principal); H93.13 Tinnitus, bilateral; Z86.73 Personal history of transient ischemic attack (TIA), and cerebral infarction without residual deficits; K21.9 Gastro-esophageal reflux disease without esophagitis; G40.909 Epilepsy, unspecified, not intractable, without status epilepticus; Z87.891 Personal history of nicotine dependence; Z91.041 Radiographic dye allergy status; Z79.899 Other long term (current) drug therapy; H35.30 Unspecified macular degeneration
CPT/HCPCS: 36415; 71046; 80053; 81001; 85025; 93005; 99284

== ENCOUNTER 2022-08-26 12:03 | Inpatient (IN) | payer MEDICARE ==
--- NOTE | 2022-08-26 12:23 | ED ---
General Adult HPI - General Chief complaint: Syncope Stated complaint: Syncope Time Seen by Provider: 08/26/22 12:06 Source: patient, family, EMS, RN notes reviewed Mode of arrival: EMS Limitations: no limitations - History of Present Illness Initial comments: Patient is a pleasant 87-year-old female presenting to the emergency department following syncopal episode. 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 Patient felt warm and then passed out. Patient leaned into a friend while she was sitting however never fell. Episode lasted one to 2 minutes. Following this patient had a second episode however that was just a near syncopal episode and never fully lost cons ciousness. Patient states she is feeling normal at this time. No history of similar symptoms previously. No chest pain or dyspnea. No nausea vomiting. No headache or confusion. No abdominal or back pain. - Related Data Home Medications Medication Instructions Recorded Confirmed Latanoprost [Xalatan 0.005%] 1 drop BOTH EYES HS 08/13/18 07/26/21 Lisinopril-Hctz 20-12.5 mg 1 tab PO DAILY 08/13/18 07/26/21 [Zestoretic 20-12.5] Omeprazole [PriLOSEC] 20 mg PO DAILY 08/13/18 07/26/21 Albuterol Sulfate [Albuterol 4 puff PO RT-Q4H PRN 07/22/21 07/26/21 Sulfate Hfa] Cholecalciferol [Vitamin D3 (25 25 mcg PO DAILY 07/22/21 07/26/21 Mcg = 1000 Iu)] Omeprazole Magnesium [PriLOSEC OTC] 20 mg PO DAILY 07/26/21 07/26/21 Previous Rx's Medication Instructions Recorded Nystatin/Triamcin Cream [Mycolog 1 applic TOPICAL TID #60 gm 07/18/21 100,000-0.1 Unit/gm-% Cream] Ascorbic Acid [Vitamin C] 1,000 mg PO DAILY #60 tab 07/29/21 Cholecalciferol [Vitamin D3 (25 25 mcg PO DAILY #30 tablet 07/29/21 Mcg = 1000 Iu)] Zinc Sulfate [Orazinc] 220 mg PO DAILY #15 cap 07/29/21 Allergies Allergy/AdvReac Type Severity Reaction Status Date / Time blue dye Allergy Rash/Hives Verified 08/26/22 12:11 Review of Systems ROS Statement: Those systems with pertinent positive or pertinent negative responses have been documented in the HPI. ROS Other: All systems not noted in ROS Statement are negative. Constitutional: Denies: fever Eyes: Denies: eye pain ENT: Denies: ear pain Respiratory: Denies: cough Cardiovascular: Denies: chest pain Endocrine: Denies: fatigue Gastrointestinal: Denies: nausea Genitourinary: Denies: dysuria Musculoskeletal: Denies: back pain Skin: Denies: rash Neurological: Denies: headache, weakness, confusion Past Medical History Past Medical History: CVA/TIA, GERD/Reflux, Hypertension, Seizure Disorder Additional Past Medical History / Comment(s): macular degeneration, glaucoma. History of Any Multi-Drug Resistant Organisms: None Reported Past Surgical History: Cholecystectomy, Hysterectomy, Tonsillectomy Past Psychological History: No Psychological Hx Reported Smoking Status: Former smoker Past Alcohol Use History: None Reported Past Drug Use History: None Reported General Exam Limitations: no limitations General appearance: alert, in no apparent distress Head exam: Present: normocephalic Eye exam: Present: normal appearance, PERRL, EOMI ENT exam: Present: normal oropharynx Neck exam: Present: normal inspection. Absent: tenderness, meningismus Respiratory exam: Present: normal lung sounds bilaterally Cardiovascular Exam: Present: regular rate, normal rhythm Expanded Peripheral pulses: 2+: Radial (R), Radial (L), Posterior Tibialis (R), Posterior Tibialis (L), Dorsalis Pedis (R), Dorsalis Pedis (L) GI/Abdominal exam: Present: soft. Absent: tenderness, pulsatile mass Neurological exam: Present: alert, oriented X3, CN II-XII intact. Absent: motor sensory deficit Expanded Neurological exam: Present: protecting the airway Speech: Present: fluid speech Cranial nerves: EOM's Intact: Normal Motor strength exam: RUE: 5, LUE: 5, RLE: 5, LLE: 5 Eye Response: (4) open spontaneously Motor Response: (6) obeys commands Verbal Response: (5) oriented Psychiatric exam: Present: normal affect, normal mood Skin exam: Present: normal color Course Vital Signs 08/26/22 08/26/22 12:09 13:11 Temperature 98 F Pulse Rate 80 78 Respiratory 18 18 Rate Blood Pressure 146/78 140/79 O2 Sat by Pulse 100 98 Oximetry EKG Findings - EKG Results: EKG: interpreted by ERMD, sinus rhythm, normal axis, normal QRS, normal ST/T Medical Decision Making - Medical Decision Making Was pt. sent in by a medical professional or institution (, GORDON, SALES AGENT [employer]ICE, urgent c are, hospital, or snf...) When possible be specific @ -No Did you speak to anyone other than the patient for history (EMS, parent, family, police, friend...)? What history was obtained from this source @ -Family is present and helps 5 history regarding significant near syncope. Patient does not recall the episode well. Did you review nursing and triage notes (agree or disagree)? Why? @ -I reviewed and agree with nursing and triage notes Were old charts reviewed (outside hosp., previous admission, EMS record, old EKG, old radiological studies, urgent care reports/EKG's, snf records)? Report findings @ -No old charts were reviewed Differential Diagnosis (chest pain, altered mental status, abdominal pain women, abdominal pain men, vaginal bleeding, weakness, fever, dyspnea, syncope, headache, dizziness, GI bleed, back pain, seizure, CVA, palpatations, mental health)? @ -Differential Syncope: Valvular disease, hypertrophic cardiomyopathy, pulmonary embolism, tamponade, tachycardia, bradycardia, MS, hypovolemia, hemorrhage, dissection, anemia, intracranial hemorrhage, seizure, hypoglycemia, carbon monoxide poisoning, this is not meant to be an all-inclusive list.e EKG interpreted by me (3pts min.). @ -As above X-rays interpreted by me (1pt min.). @ -Chest x-ray shows no acute process CT interpreted by me (1pt min.). @ -CT brain report reviewed U/S interpreted by me (1pt. min.). @ -None done What testing was considered but not performed or refused? (CT, X-rays, U/S, labs)? Why? @ -None What meds were considered but not given or refused? Why? @ -None Did you discuss the management of the patient with other professionals (professionals i.e. GORDON Wright, SALES AGENT [employer], lab, RT, psych nurse, protective services social worker, wide area network administrator, teacher, chief fundraising officer, web site project manager)? Give summary @ -. Case discussed with Dr. Guevara, who will admit for Dr. Fernandez Was smoking cessation discussed for >3mins.? @ -No Was critical care preformed (if so, how long)? @ -No Were there social determinants of health that impacted care today? How? (Homelessness, low income, unemployed, alcoholism, drug addiction, transportation, low edu. Level, literacy, decrease access to med. care, shelter, rehab)? @ -No Was there de-escalation of care discussed even if they declined (Discuss DNR or withdrawal of care, Hospice)? DNR status @ -No What co-morbidities impacted this encounter? (DM, HTN, Smoking, COPD, CAD, Cancer, CVA, ARF, Chemo, Hep., AIDS, mental health diagnosis, sleep apnea, morbid obesity)? @ -None Was patient admitted / discharged? Hospital course, mention meds given and route, prescriptions, significant lab abnormalities, going to OR and other pertinent info. @ -Patient reevaluated and resting comfortably in bed. Patient and family updated on results and plan. Admission orders written. Undiagnosed new problem with uncertain prognosis? @ -No Drug Therapy requiring intensive monitoring for toxicity (Heparin, Nitro, Insulin, Cardizem)? @ -No Were any procedures done? @ -No Diagnosis/symptom? @ -Syncope Acute, or Chronic, or Acute on Chronic? @ -Acute Uncomplicated (without systemic symptoms) or Complicated (systemic symptoms)? @ -default Side effects of treatment? @ -No Exacerbation, Progression, or Severe Exacerbation? @ -No Poses a threat to life or bodily function? How? (Chest pain, USA, MS, pneumonia, PE, COPD, DKA, ARF, appy, cholecystitis, CVA, Diverticulitis, Homicidal, Suicidal, threat to staff... and all critical care pts) @ -potential threat if dysrhythmia or other cause of syncope recurs. - Lab Data Result diagrams: 08/26/22 12:25 08/26/22 12:25 Lab Results 08/26/22 08/26/22 08/26/22 Range/Units 12:25 12:25 12:25 WBC 7.2 (3.8-10.6) k/uL RBC 4.27 (3.80-5.40) m/uL Hgb 12.9 (11.4-16.0) gm/dL Hct 38.6 (34.0-46.0) % MCV 90.4 (80.0-100.0) fL MCH 30.3 (25.0-35.0) pg MCHC 33.5 (31.0-37.0) g/dL RDW 12.6 (11.5-15.5) % Plt Count 320 (150-450) k/uL MPV 8.1 Neutrophils % (Manual) 47 % Lymphocytes % (Manual) 44 % Monocytes % (Manual) 8 % Eosinophils % (Manual) 1 % Neutrophils # (Manual) 3.38 (1.3-7.7) k/uL Lymphocytes # (Manual) 3.17 (1.0-4.8) k/uL Monocytes # (Manual) 0.58 (0-1.0) k/uL Eosinophils # (Manual) 0.07 (0-0.7) k/uL Nucleated RBCs 0 (0-0) /100 WBC Manual Slide Review Performed RBC Morphology Normal PT 10.6 (9.0-12.0) sec INR 1.0 (<1.2) APTT 20.8 L (22.0-30.0) sec D-Dimer 0.59 (<0.60) mg/L FEU Sodium 137 (137-145) mmol/L Potassium 3.9 (3.5-5.1) mmol/L Chloride 102 (98-107) mmol/L Carbon Dioxide 26 (22-30) mmol/L Anion Gap 9 mmol/L BUN 17 (7-17) mg/dL Creatinine 0.86 (0.52-1.04) mg/dL Est GFR (CKD-EPI)AfAm 72 (>60 ml/min/1.73 sqM) Est GFR (CKD-EPI)NonAf 62 (>60 ml/min/1.73 sqM) Glucose 142 H (74-99) mg/dL Calcium 9.5 (8.4-10.2) mg/dL Total Bilirubin 1.0 (0.2-1.3) mg/dL AST 25 (14-36) U/L ALT 17 (4-34) U/L Alkaline Phosphatase 68 (38-126) U/L Troponin I (0.000-0.034) ng/mL Total Protein 6.9 (6.3-8.2) g/dL Albumin 4.3 (3.5-5.0) g/dL 08/26/22 Range/Units 12:25 WBC (3.8-10.6) k/uL RBC (3.80-5.40) m/uL Hgb (11.4-16.0) gm/dL Hct (34.0-46.0) % MCV (80.0-100.0) fL MCH (25.0-35.0) pg MCHC (31.0-37.0) g/dL RDW (11.5-15.5) % Plt Count (150-450) k/uL MPV Neutrophils % (Manual) % Lymphocytes % (Manual) % Monocytes % (Manual) % Eosinophils % (Manual) % Neutrophils # (Manual) (1.3-7.7) k/uL Lymphocytes # (Manual) (1.0-4.8) k/uL Monocytes # (Manual) (0-1.0) k/uL Eosinophils # (Manual) (0-0.7) k/uL Nucleated RBCs (0-0) /100 WBC Manual Slide Review RBC Morphology PT (9.0-12.0) sec INR (<1.2) APTT (22.0-30.0) sec D-Dimer (<0.60) mg/L FEU Sodium (137-145) mmol/L Potassium (3.5-5.1) mmol/L Chloride (98-107) mmol/L Carbon Dioxide (22-30) mmol/L Anion Gap mmol/L BUN (7-17) mg/dL Creatinine (0.52-1.04) mg/dL Est GFR (CKD-EPI)AfAm (>60 ml/min/1.73 sqM) Est GFR (CKD-EPI)NonAf (>60 ml/min/1.73 sqM) Glucose (74-99) mg/dL Calcium (8.4-10.2) mg/dL Total Bilirubin (0.2-1.3) mg/dL AST (14-36) U/L ALT (4-34) U/L Alkaline Phosphatase (38-126) U/L Troponin I <0.012 (0.000-0.034) ng/mL Total Protein (6.3-8.2) g/dL Albumin (3.5-5.0) g/dL Disposition Clinical Impression: Syncope Disposition: ADMITTED IP TO THIS [facility] Is patient prescribed a controlled substance at d/c from ED?: No Referrals: John Fernandez MD [Primary Care Provider] - 1-2 days Time of Disposition: 14:02
[2022-08-26 12:33] LABS: HCT 38.6 % (34.0-46.0); HGB 12.9 gm/dL (11.4-16.0); MCH 30.3 pg (25.0-35.0); MCHC 33.5 g/dL (31.0-37.0); MCV 90.4 fL (80.0-100.0); Mean Platelet Volume 8.1; Platelet Count 320 k/uL (150-450); RBC 4.27 m/uL (3.80-5.40); RDW 12.6 % (11.5-15.5); WBC 7.2 k/uL (3.8-10.6)
[2022-08-26 12:43] LABS: Albumin 4.3 g/dL (3.5-5.0); Calcium 9.5 mg/dL (8.4-10.2); Potassium 3.9 mmol/L (3.5-5.1); Total Protein 6.9 g/dL (6.3-8.2)
--- NOTE | 2022-08-26 12:50 | XR ---
EXAMINATION TYPE: XR chest 2V DATE OF EXAM: 08/26/2022 COMPARISON: 08/25/2022 HISTORY: Syncope TECHNIQUE: Frontal and lateral views of the chest are obtained. FINDINGS: There is no focal air space opacity, pleural effusion, or pneumothorax seen. The cardiac silhouette size is within normal limits. There is a small hiatal hernia. The osseous structures are intact. IMPRESSION: No acute cardiopulmonary process.
--- NOTE | 2022-08-26 13:00 | CT ---
EXAMINATION TYPE: CT brain wo con DATE OF EXAM: 08/26/2022 COMPARISON: None HISTORY: syncope CT DLP: 1099.4 mGycm Automated exposure control for dose reduction was used. FINDINGS: The ventricles, basal cisterns and sulci over the convexities are moderately enlarged consistent with moderate generalized atrophy. There is mild chronic ischemic white matter demyelination. There is no acute intra or extra-axial hemorrhage. The posterior fossa is grossly normal. The intraorbital contents appear normal and symmetric. There are acute inflammatory changes in the sphenoid sinus. The mastoid air cells are well aerated. IMPRESSION: 1. AGE-APPROPRIATE ATROPHY. 2. NO ACUTE BLEED OR MASS EFFECT. 3. ACUTE INFLAMMATORY CHANGES IN THE SPHENOID SINUS.
[2022-08-26 13:06] LABS: Prothrombin Time 10.6 sec (9.0-12.0)
[2022-08-26 13:07] LABS: Eosinophils # (M) 0.07 k/uL (0-0.7); Lymphocytes # (M) 3.17 k/uL (1.0-4.8); Monocytes # (M) 0.58 k/uL (0-1.0); Neutrophils # (M) 3.38 k/uL (1.3-7.7); Neutrophils % (M) 47 %; Nucleated Red Blood Cells 0 /100 WBC (0-0); Total Cells Counted 100
[2022-08-26 13:11] LABS: RBC Morphology Normal
[2022-08-26 13:14] LABS: Partial Thromboplastin Time 20.8 sec (22.0-30.0)
[2022-08-26] MEDS ORDERED: NALOXONE 0.4 MG/ML 1 ML VIAL IV PRN (14:02)
[2022-08-26] MEDS: HEPARIN SODIUM,PORCINE/PF 5,000 UNIT/0.5 ML SYRINGE SQ SCH ×2 (17:28→23:10)
[2022-08-26] MEDS: LATANOPROST 0.005% OPHTH DROPS 2.5 ML BTL BOTH EYES SCH (20:02)
--- NOTE | 2022-08-26 20:39 | US ---
EXAMINATION TYPE: US carotid duplex BILAT DATE OF EXAM: 08/26/2022 COMPARISON: NONE CLINICAL HISTORY: syncope. felt faint today, no h/o stroke TECHNIQUE: Carotid duplex ultrasound examination. Indirect Doppler criteria was utilized. FINDINGS: EXAM MEASUREMENTS: RIGHT: Peak Systolic Velocity (PSV) cm/sec ----- Right CCA: 79.3 ----- Right ICA: 132 ----- Right ECA: 105 ICA/CCA ratio: 1.6 RIGHT: End Diastole cm/sec ----- Right CCA: 14.9 ----- Right ICA: 18.1 ----- Right ECA: 13.6 LEFT: Peak Systolic Velocity (PSV) cm/sec ----- Left CCA: 76.3 ----- Left ICA: 340 ----- Left ECA: 141 ICA/CCA ratio: 4.6 LEFT: End Diastole cm/sec ----- Left CCA: 21.2 ----- Left ICA: 85.4 ----- Left ECA: 10.3 VERTEBRALS (direction of flow): Right Vertebral: Antegrade Left Vertebral: Antegrade Rhythm: Normal MECHANICAL EQUIPMENT TEST ENGINEER NOTES: Heterogeneous plaque bilaterally, more on the left at proximal ICA that showed deysi nosis. IMPRESSION: Elevated velocity in the left internal carotid artery is suggestive of more than 85% stenosis. There is 50-70% stenosis in the right internal carotid artery. There is antegrade flow in the vertebral art eries. Criteria for Assigning % of Stenosis / Diameter reduction (Estimation based on the indirect measurements of the internal carotid artery velocities (ICA PSV). 1. Normal (no stenosis)=ICA PSV < 125 cm/s: ratio < 2.0: ICA EDV<40 cm/s. 2. Less than 50% stenosis=ICA PSV < 125 cm/s: ratio < 2.0: ICA EDV<40 cm/s. 3. 50 to 69% stenosis=ICA PSV of 125 to 230 cm/s: ration 2.0 ? 4.0: ICA EDV 40-100 cm/s. 4. Greater than 70% stenosis to near occlusion= ICA PSV > 230 cm/s: ratio > 4.0: ICA EDV > 100 cm/s. 5. Near occlusion= ICA PSV velocities may be low or undetectable: variable ratio and ICA EDV. 6. Total occlusion=unable to detect flow.
--- NOTE | 2022-08-26 22:20 | P.HPIM ---
History of Present Illness H&P Date: 08/26/22 Chief Complaint: Syncope Patient is a 87-year-old female with a long history of CVA/TIA, hypertension, history of seizure disorder currently not on any antiepileptic medications, prior history of smoking was brought to the hospital following a syncopal episode. 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 She was standing there for about 10 minutes and was trying to sit in the chair and suddenly felt warm and passed out and leaned onto the front on the side. Patient did not fall to the ground or hit her head.. Patient states that she last had concerns for about couple of minutes. Patient was back to baseline and denies any weakness. No weakness or seizures noted. Denies any complaints of chest pain or shortness of breath. No nausea or vomiting. Patient did eat cereal this morning. Otherwise denied any fever or chills. No cough or sputum production. Patient did have a bowel movement after the syncopal episode. Patient had COVID infection about a year ago. No other recent illnesses or sick contacts. Chest x-ray showed no acute cardiopulmonary process EKG showed sinus rhythm. No ST-T wave changes CT head showed age-related atrophy no acute bleed or mass-effect. Acute inflammatory changes in the sphenoid sinus. Carotid duplex showed elevated velocity in the left ICA is suggestive of more than 85% stenosis. There is 20-70 was not stenosis in the right ICA. Laboratory data showed WBC 7.2 hemoglobin 12.9 and platelets 320 and D-dimer level is 0.59 BUN 17 and creatinine 0.86 Troponin x3 negative Review of Systems Constitutional: Patient denies any fever or chills . no Generalized weakness. Abdomen: Patient denied any nausea or vomiting or abd. pain Cardiovascular: Patient denies any chest pain or short of breath no palpitations. Respiratory: patient denied any cough . no sputum production. No shortness of breath Neurologic: Patient denied any numbness or tingling headache. Musculoskeletal: Patient denies any complaints of joint swelling or deformity. Skin: Negative Psychiatric: Negative Endocrine: No heat or cold intolerance. No recent weight gain. Genitourinary: No dysuria or hematuria. All other 14 point ROS negative except the above Past Medical History Past Medical History: CVA/TIA, GERD/Reflux, Hypertension, Seizure Disorder Additional Past Medical History / Comment(s): macular degeneration, glaucoma. History of Any Multi-Drug Resistant Organisms: None Reported Past Surgical History: Cholecystectomy, Hysterectomy, Tonsillectomy Past Psychological History: No Psychological Hx Reported Smoking Status: Former smoker Past Alcohol Use History: None Reported Past Drug Use History: None Reported Medications and Allergies Home Medications Medication Instructions Recorded Confirmed Type Latanoprost [Xalatan 0.005%] 1 drop BOTH EYES HS 08/13/18 08/26/22 History Lisinopril-Hctz 20-12.5 mg 1 tab PO DAILY 08/13/18 08/26/22 History [Zestoretic 20-12.5] Omeprazole Magnesium [PriLOSEC OTC] 20 mg PO DAILY 07/26/21 08/26/22 History Ascorbic Acid [Vitamin C] 1,000 mg PO DAILY #60 tab 07/29/21 08/26/22 Rx Cholecalciferol [Vitamin D3 (25 25 mcg PO DAILY #30 tablet 07/29/21 08/26/22 Rx Mcg = 1000 Iu)] Zinc Gluconate [Zinc] 50 mg PO DAILY 08/26/22 08/26/22 History Allergies Allergy/AdvReac Type Severity Reaction Status Date / Time blue dye Allergy Rash/Hives Verified 08/26/22 14:11 Physical Exam Vitals: Vital Signs Temp Pulse Pulse Resp BP BP Pulse Ox 08/26/22 15:25 80 15 141/79 98 08/26/22 15:22 97.4 F L 83 18 153/85 95 08/26/22 13:11 78 18 140/79 98 08/26/22 12:09 98 F 80 18 146/78 100 Intake and Output 08/26/22 08/26/22 08/26/22 06:59 14:59 22:59 Other: Weight 63.503 kg PHYSICAL EXAMINATION: Patient is lying in the bed comfortably, no acute distress, awake alert and oriented.. HEENT: Normocephalic. Neck is supple. Pupils reactive. Nostrils clear. Oral cavity is moist. Neck reveals no JVD, carotid bruits, or thyromegaly. CHEST EXAMINATION: Trachea is central. Symmetrical expansion. Lung morocho clear to auscultation and percussion. CARDIAC: Normal S1, S2 with no gallops. No murmurs ABDOMEN: Soft. Bowel sounds present. Nontender. No organomegaly. No abdominal bruits. Extremities: reveal no edema. No clubbing or cyanosis Neurologically awake, alert, oriented x3 with well-coordinated movements. No focal deficits noted Skin: No rash or skin lesions. Psychiatric: Coperative. Nonsuicidal, Musculoskeletal: No joint swelling or deformity. Normal range of motion. Results CBC & Chem 7: 08/26/22 12:25 08/26/22 12:25 Labs: Abnormal Lab Results - Last 24 Hours (Table) 08/26/22 08/26/22 Range/Units 12:25 12:25 APTT 20.8 L (22.0-30.0) sec Glucose 142 H (74-99) mg/dL Thrombosis Risk Factor Assmnt - DVT/VTE Prophylaxis DVT/VTE Prophylaxis: Pharmacologic Prophylaxis ordered Assessment and Plan Assessment: Acute syncopal episode. Possible orthostatic hypotension Hypertension History of CVA/TIA no residual weakness Macular degeneration and glaucoma Prior history of smoking GI and DVT prophylaxis Plan: Patient admitted on telemetry monitoring. Follow-up orthostatic vitals. 2D echocardiogram and bilateral carotid duplex was ordered. Cardiology consultation for further evaluation syncope. Gentle IV hydration and continued home medications and follow-up closely. Discussed the patient and her family at bedside in detail. Time with Patient: Greater than 30
[2022-08-27] MEDS: PANTOPRAZOLE 40 MG TABLET PO SCH (06:14)
[2022-08-27] MEDS: ASCORBIC ACID 500 MG TAB PO SCH (08:53)
[2022-08-27] MEDS: ZINC SULFATE 220 MG CAP PO SCH (08:53)
[2022-08-27] MEDS: LISINOPRIL-HCTZ 20-12.5 MG 1 EACH TAB PO SCH (08:53)
[2022-08-27] MEDS: CHOLECALCIFEROL 25 MCG (1000 IU) TABLET PO SCH (08:53)
[2022-08-27] MEDS: HEPARIN SODIUM,PORCINE/PF 5,000 UNIT/0.5 ML SYRINGE SQ SCH ×3 (08:53→22:58)
--- NOTE | 2022-08-27 10:41 | P.CRDCN ---
History of Present Illness Consult date: 08/27/22 History of present illness: HISTORY OF PRESENT ILLNESS: This is a 87-year-old female with a past medical history significant for hypertension. Patient does not follow with a prime minister. We have been asked to see the patient in consultation for syncope. Patient examined at the bedside. Patient states that she woke up Saturday and was feeling in her normal state of health. She went to [employer]ism. She states that she stood up and was seen when she began to feel her legs get weak so she sat down and rested for a few minutes. She states she then felt better so she decided to stand up again and her legs felt like they're going to give out on her once again. She also reports feeling diaphoretic. She states that she sat down to rest and she slumped over onto her side. She does not believe that she lost consciousness. She denies losing control of bowel or bladder at that time. She does report that she had a bowel movement in route to the hospital. The patient denies having any chest pain or pressure this morning. She denies any shortness of breath. She denies any dizziness or lightheadedness. Orthostatic blood pressures were obtained and were unremarkable. Telemetry does not reveal any significant arrhythmias. * EKG reveals sinus mechanism with no signs of acute ischemia * Chest xray negative for acute process * Laboratory data: WBC 7.2. Hemoglobin 12.9. Platelet count 320. D-dimer 0.59. Sodium 137. Potassium 3.9. BUN 17. Creatinine 0.86. Troponin negative 3. * Current home cardiac medications include lisinoprilhydrochlorothiazide 2012.5 mg daily * Carotid Doppler: Elevated velocity in the left internal carotid artery suggestive more than 85% stenosis. There is 50-70% stenosis in the right internal carotid artery. REVIEW OF SYSTEMS: At the time of my exam: CONSTITUTIONAL: Denies fever or chills. HEENT: Denies blurred vision, vision changes, or eye pain. Denies hemoptysis CARDIOVASCULAR: Denies chest pain. Denies orthopnea. Denies PND. Denies palpitations RESPIRATORY: Denies shortness of breath. GASTROINTESTINAL: Denies abdominal pain. Denies nausea or vomiting. HEMATOLOGIC: Denies bleeding disorders. GENITOURINARY: Denies any blood in urine. SKIN: Denies pruitis. Denies rash. PHYSICAL EXAM: VITAL SIGNS: Reviewed. GENERAL: Well-developed in no acute distress. HEENT: Head is normocephalic. Pupils are equal, round. Sclerae anicteric. Mucous membranes of the mouth are moist. Neck supple. Carotid bruit noted. LUNGS: Respirations even and unlabored. Lungs essentially clear to auscultation bilaterally. HEART: Regular rate and rhythm. S1 and S2 heard. ABDOMEN: Soft. Nondistended. Nontender. EXTREMITIES: Normal range of motion. No clubbing or cyanosis. Peripheral pulses intact. No lower extremity edema NEUROLOGIC: Awake and alert. Oriented x 3. ASSESSMENT: Presyncope Hypertension Bilateral carotid stenosis, carotid ultrasound reveals greater than 85% stenosis of left ICA, 80-70% stenosis right ICA PLAN: Obtain 2D echo to assess cardiac structure and function Continue telemetry monitoring to assess for any arrhythmias Add aspirin and atorvastatin Recommend CTA of carotid arteries and vascular consult. Will defer to internal medicine. Further recommendations pending patient course Nurse practitioner note has been reviewed by physician. Signing provider agrees with the documented findings, assessment, and plan of care. Past Medical History Past Medical History: CVA/TIA, GERD/Reflux, Hypertension, Seizure Disorder Additional Past Medical History / Comment(s): macular degeneration, glaucoma. History of Any Multi-Drug Resistant Organisms: None Reported Past Surgical History: Cholecystectomy, Hysterectomy, Tonsillectomy Past Anesthesia/Blood Transfusion Reactions: No Reported Reaction Past Psychological History: No Psychological Hx Reported Smoking Status: Former smoker Past Alcohol Use History: None Reported Past Drug Use History: None Reported Medications and Allergies Home Medications Medication Instructions Recorded Confirmed Type Latanoprost [Xalatan 0.005%] 1 drop BOTH EYES HS 08/13/18 08/26/22 History Lisinopril-Hctz 20-12.5 mg 1 tab PO DAILY 08/13/18 08/26/22 History [Zestoretic 20-12.5] Omeprazole Magnesium [PriLOSEC OTC] 20 mg PO DAILY 07/26/21 08/26/22 History Ascorbic Acid [Vitamin C] 1,000 mg PO DAILY #60 tab 07/29/21 08/26/22 Rx Cholecalciferol [Vitamin D3 (25 25 mcg PO DAILY #30 tablet 07/29/21 08/26/22 Rx Mcg = 1000 Iu)] Zinc Gluconate [Zinc] 50 mg PO DAILY 08/26/22 08/26/22 History Allergies Allergy/AdvReac Type Severity Reaction Status Date / Time blue dye Allergy Rash/Hives Verified 08/26/22 14:11 Physical Exam Vitals: Vital Signs Temp Pulse Pulse Resp BP BP BP 08/27/22 03:29 97.5 F L 82 18 08/27/22 01:35 72 16 08/26/22 23:59 97.8 F 72 16 08/26/22 20:35 08/26/22 20:00 97.9 F 79 18 08/26/22 16:00 97 18 158/76 145/86 08/26/22 15:25 80 15 141/79 08/26/22 15:23 97 18 08/26/22 15:22 97.4 F L 83 18 08/26/22 14:20 97.4 F L 83 18 08/26/22 13:11 78 18 140/79 08/26/22 12:09 98 F 80 18 146/78 BP BP Pulse Ox FiO2 08/27/22 03:29 145/70 95 08/27/22 01:35 08/26/22 23:59 118/61 97 08/26/22 20:35 96 21 08/26/22 20:00 138/69 96 08/26/22 16:00 164/79 96 08/26/22 15:25 98 08/26/22 15:23 08/26/22 15:22 153/85 95 08/26/22 14:20 153/85 95 08/26/22 13:11 98 08/26/22 12:09 100 Intake and Output 08/26/22 08/27/22 08/27/22 22:59 06:59 14:59 Intake Total 0 180 Balance 0 180 Intake: Oral 0 180 Other: Voiding Method Toilet Toilet # Voids 1 1 # Bowel Movements 1 Results 08/26/22 12:25 08/26/22 12:25 Cardiac Enzymes 08/26/22 08/26/22 08/26/22 Range/Units 12:25 12:25 15:10 AST 25 (14-36) U/L Troponin I <0.012 <0.012 (0.000-0.034) ng/mL 08/26/22 Range/Units 18:25 AST (14-36) U/L Troponin I <0.012 (0.000-0.034) ng/mL Coagulation 08/26/22 Range/Units 12:25 PT 10.6 (9.0-12.0) sec APTT 20.8 L (22.0-30.0) sec CBC 08/26/22 Range/Units 12:25 WBC 7.2 (3.8-10.6) k/uL RBC 4.27 (3.80-5.40) m/uL Hgb 12.9 (11.4-16.0) gm/dL Hct 38.6 (34.0-46.0) % Plt Count 320 (150-450) k/uL Comprehensive Metabolic Panel 08/26/22 Range/Units 12:25 Sodium 137 (137-145) mmol/L Potassium 3.9 (3.5-5.1) mmol/L Chloride 102 (98-107) mmol/L Carbon Dioxide 26 (22-30) mmol/L BUN 17 (7-17) mg/dL Creatinine 0.86 (0.52-1.04) mg/dL Glucose 142 H (74-99) mg/dL Calcium 9.5 (8.4-10.2) mg/dL AST 25 (14-36) U/L ALT 17 (4-34) U/L Alkaline Phosphatase 68 (38-126) U/L Total Protein 6.9 (6.3-8.2) g/dL Albumin 4.3 (3.5-5.0) g/dL Current Medications Generic Name Dose Route Start Last Admin Trade Name Freq PRN Reason Stop Dose Admin Ascorbic Acid 1,000 mg 08/27/22 09:00 Ascorbic Acid 500 Mg Tab PO DAILY [facility] Cholecalciferol 25 mcg 08/27/22 09:00 Cholecalciferol 25 Mcg (1000 Iu) Tablet PO DAILY [facility] Lisinopril/HCTZ 1 each 08/27/22 09:00 Lisinopril-Hctz 20-12.5 Mg 1 Each Tab PO DAILY [facility] Heparin Sodium (Porcine) 5,000 unit 08/26/22 16:00 08/26/22 23:10 Heparin Sodium,Porcine/Pf 5,000 Unit/0.5 Ml Syringe SQ 5,000 unit Q8HR [facility] Administration Latanoprost 1 drops 08/26/22 21:00 08/26/22 20:02 Latanoprost 0.005% Ophth Drops 2.5 Ml Btl BOTH EYES 1 drops HS [facility]ON Administration Naloxone HCl 0.2 mg 08/26/22 14:02 Naloxone 0.4 Mg/Ml 1 Ml Vial IV Q2M PRN Opioid Reversal Pantoprazole Sodium 40 mg 08/27/22 07:30 08/27/22 06:14 Pantoprazole 40 Mg Tablet PO 40 mg DAILY@0730 [facility] Administration Zinc Sulfate 220 mg 08/27/22 09:00 Zinc Sulfate 220 Mg Cap PO DAILY [facility] Intake and Output 08/26/22 08/27/22 08/27/22 22:59 06:59 14:59 Intake Total 0 180 Balance 0 180 Intake: Oral 0 180 Other: Voiding Method Toilet Toilet # Voids 1 1 # Bowel Movements 1 08/26/22 12:25 08/26/22 12:25
[2022-08-27] MEDS: ASPIRIN 81 MG PO SCH (11:20)
--- NOTE | 2022-08-27 11:41 | P.GSCN ---
History of Present Illness Consult date: 08/27/22 Reason for Consult: Carotid stenosis, syncope Requesting physician: Mary Nevarez History of present illness: On the seventh pleasant 87-year-old female who was brought in by EMS yesterday for an episode of syncope and collapse at [employer]. Patient has a past medical history of CVA/TIA, hypertension, and seizure disorder as well as macular degeneration. Patient is a former smoker who states she was on a heavy smoker and quit about 20 years ago. Patient states she just felt dizzy at [employer] and then passed out. She denied any focal symptoms prior such as vision loss, difficulty speaking, and or weakness of her extremities. She currently denies any focal deficits, no shortness of breath, chest pain, fever, chills or body aches. Patient just underwent an echocardiogram with results pending. She had a carotid duplex done on admission reported more than 85% stenosis of the left ICA and 50-70% stenosis in the right internal carotid artery. Antegrade flow in the vertebral arteries. Patient states she has not followed with anybody for carotid disease. She also had a brain CT that showed age-appropriate atrophy, no acute bleed or mass effect, acute inflammatory changes in the sphenoid sinus. Labs were unremarkable on admission,blood pressure 116/64 heart rate 87 respiratory rate 18 oxygen saturation 96% on room air. Review of Systems A 14 point review systems was completed all pertinent positives and negatives as stated in the HPI. Past Medical History Past Medical History: CVA/TIA, GERD/Reflux, Hypertension, Seizure Disorder Additional Past Medical History / Comment(s): macular degeneration, glaucoma. History of Any Multi-Drug Resistant Organisms: None Reported Past Surgical History: Cholecystectomy, Hysterectomy, Tonsillectomy Past Anesthesia/Blood Transfusion Reactions: No Reported Reaction Past Psychological History: No Psychological Hx Reported Smoking Status: Former smoker Past Alcohol Use History: None Reported Past Drug Use History: None Reported Medications and Allergies Home Medications Medication Instructions Recorded Confirmed Type Latanoprost [Xalatan 0.005%] 1 drop BOTH EYES HS 08/13/18 08/26/22 History Lisinopril-Hctz 20-12.5 mg 1 tab PO DAILY 08/13/18 08/26/22 History [Zestoretic 20-12.5] Omeprazole Magnesium [PriLOSEC OTC] 20 mg PO DAILY 07/26/21 08/26/22 History Ascorbic Acid [Vitamin C] 1,000 mg PO DAILY #60 tab 07/29/21 08/26/22 Rx Cholecalciferol [Vitamin D3 (25 25 mcg PO DAILY #30 tablet 07/29/21 08/26/22 Rx Mcg = 1000 Iu)] Zinc Gluconate [Zinc] 50 mg PO DAILY 08/26/22 08/26/22 History Allergies Allergy/AdvReac Type Severity Reaction Status Date / Time blue dye Allergy Rash/Hives Verified 08/26/22 14:11 Surgical - Exam Vital Signs Temp Pulse Resp BP Pulse Ox 98 F 80 18 146/78 100 08/26/22 12:09 08/26/22 12:09 08/26/22 12:09 08/26/22 12:08/26/22 12:09 General appearance: The patient is alert, oriented, appears in no acute distress. HET: Head is normocephalic and atraumatic. Pupils are equal and reactive. Neck: Supple without lymphadenopathy. Trachea midline. Left carotid bruit noted. Heart: Regular. Lungs: Equal expansion, normal respiratory effort. Abdomen: Soft, nontender, nondistended. Extremities: Normal skin color and turgor. No cyanosis, rash, ulceration, clubbing, or edema. Radial and pedal pulses are 2/4 bilaterally. Neurological: No focal deficits. Strength and sensation are grossly intact. Results - Labs 08/26/22 12:25 08/26/22 12:25 Abnormal Lab Results - Last 24 Hours (Table) 08/26/22 08/26/22 Range/Units 12:25 12:25 APTT 20.8 L (22.0-30.0) sec Glucose 142 H (74-99) mg/dL Diabetes panel 08/26/22 Range/Units 12:25 Sodium 137 (137-145) mmol/L Potassium 3.9 (3.5-5.1) mmol/L Chloride 102 (98-107) mmol/L Carbon Dioxide 26 (22-30) mmol/L BUN 17 (7-17) mg/dL Creatinine 0.86 (0.52-1.04) mg/dL Glucose 142 H (74-99) mg/dL Calcium 9.5 (8.4-10.2) mg/dL AST 25 (14-36) U/L ALT 17 (4-34) U/L Alkaline Phosphatase 68 (38-126) U/L Total Protein 6.9 (6.3-8.2) g/dL Albumin 4.3 (3.5-5.0) g/dL Calcium panel 08/26/22 Range/Units 12:25 Calcium 9.5 (8.4-10.2) mg/dL Albumin 4.3 (3.5-5.0) g/dL Pituitary panel 08/26/22 Range/Units 12:25 Sodium 137 (137-145) mmol/L Potassium 3.9 (3.5-5.1) mmol/L Chloride 102 (98-107) mmol/L Carbon Dioxide 26 (22-30) mmol/L BUN 17 (7-17) mg/dL Creatinine 0.86 (0.52-1.04) mg/dL Glucose 142 H (74-99) mg/dL Calcium 9.5 (8.4-10.2) mg/dL Adrenal panel 08/26/22 Range/Units 12:25 Sodium 137 (137-145) mmol/L Potassium 3.9 (3.5-5.1) mmol/L Chloride 102 (98-107) mmol/L Carbon Dioxide 26 (22-30) mmol/L BUN 17 (7-17) mg/dL Creatinine 0.86 (0.52-1.04) mg/dL Glucose 142 H (74-99) mg/dL Calcium 9.5 (8.4-10.2) mg/dL Total Bilirubin 1.0 (0.2-1.3) mg/dL AST 25 (14-36) U/L ALT 17 (4-34) U/L Alkaline Phosphatase 68 (38-126) U/L Total Protein 6.9 (6.3-8.2) g/dL Albumin 4.3 (3.5-5.0) g/dL - Imaging Comments: Carotid duplex: Right ICA PSV 132, ICA/CCA ratio 1.6. Left ICA PSV 340, ICA/CCA ratio 4.6 Assessment and Plan Assessment: 1. Syncope 2. Significant left ICA stenosis greater than 85%, right ICA stenosis 50-70% 3. Former smoker Plan: 1. Continue 81 mg aspirin and atorvastatin 40 mg 2. Continue with cardiology and medical workup 3. Recommend further outpatient workup with vascular surgery for asymptomatic left carotid artery stenosis Thank you for this consultation. Patient is cleared from vascular surgery for discharge. The impression and plan of care has been dictated as directed. Dr. Butterfield I performed a history and examination of this patient, discussed the same with the dictator. I agree with the dictator's note ,documented as a scribe. Any additional findings or plans will be noted.
--- NOTE | 2022-08-27 15:07 | P.PN ---
Subjective Progress Note Date: 08/27/22 Patient is a 87-year-old female with a long history of CVA/TIA, hypertension, history of seizure disorder currently not on any antiepileptic medications, prior history of smoking was brought to the hospital following a syncopal episode. 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 Patient did not fall to the ground or hit her head.. Patient states that she last had concerns for about couple of minutes. Patient was back to baseline and denies any weakness. No weakness or seizures noted. Denies any complaints of chest pain or shortness of breath. No nausea or vomiting. Patient did eat cereal this morning. Otherwise denied any fever or chills. No cough or sputum production. Patient did have a bowel movement after the syncopal episode. Patient had COVID infection about a year ago. No other recent illnesses or sick contacts. Chest x-ray showed no acute cardiopulmonary process EKG showed sinus rhythm. No ST-T wave changes CT head showed age-related atrophy no acute bleed or mass-effect. Acute inflammatory changes in the sphenoid sinus. Carotid duplex showed elevated velocity in the left ICA is suggestive of more than 85% stenosis. There is 20-70 was not stenosis in the right ICA. Laboratory data showed WBC 7.2 hemoglobin 12.9 and platelets 320 and D-dimer level is 0.59 BUN 17 and creatinine 0.86 Troponin x3 negative 08/27/2022 Patient is seen and evaluated and follow-up with cardiology following recomme nding vascular surgery consultation as patient did have carotid duplex ultrasound which showed left ICA more than 85% stenosed along with 50-70% right- sided stenosis. 2-D echo currently being done at the bedside and pending at this time. Patient is afebrile denies chest pain or shortness of breath. Patient denies any dizziness or lightheadedness. No reports of nausea or vomiting noted and patient tolerating diet. Encouraged increased activity as tolerated and will await input from vascular surgery. Review of systems: Constitutional: No reports of fatigue, fever, or chills Cardiovascular: No reports of chest pain or palpitations Respiratory: No reports of shortness of breath or cough GI: No reports of nausea, vomiting, or diarrhea : No reports of dysuria or retention Neurovascular: No reports of weakness or numbness All medications have been reviewed Active Medications Ascorbic Acid (Ascorbic Acid 500 Mg Tab) 1,000 mg PO DAILY [facility] Last Admin: 08/27/22 08:53 Dose: 1,000 mg Aspirin (Aspirin 81 Mg) 81 mg PO DAILY [facility] Last Admin: 08/27/22 11:20 Dose: 81 mg Atorvastatin Calcium (Atorvastatin 40 Mg Tab) 40 mg PO [facility] Cholecalciferol (Cholecalciferol 25 Mcg (1000 Iu) Tablet) 25 mcg PO DAILY [facility] Last Admin: 08/27/22 08:53 Dose: 25 mcg Lisinopril/HCTZ (Lisinopril-Hctz 20-12.5 Mg 1 Each Tab) 1 each PO DAILY [facility] Last Admin: 08/27/22 08:53 Dose: 1 each Heparin Sodium (Porcine) (Heparin Sodium,Porcine/Pf 5,000 Unit/0.5 Ml Syringe) 5,000 unit SQ Q8HR [facility] Last Admin: 08/27/22 08:53 Dose: 5,000 unit Latanoprost (Latanoprost 0.005% Ophth Drops 2.5 Ml Btl) 1 drops BOTH EYES [facility] Last Admin: 08/26/22 20:02 Dose: 1 drops Naloxone HCl (Naloxone 0.4 Mg/Ml 1 Ml Vial) 0.2 mg IV Q2M PRN PRN Reason: Opioid Reversal Pantoprazole Sodium (Pantoprazole 40 Mg Tablet) 40 mg PO DAILY@0730 [facility] Last Admin: 08/27/22 06:14 Dose: 40 mg Zinc Sulfate (Zinc Sulfate 220 Mg Cap) 220 mg PO DAILY [facility] Last Admin: 08/27/22 08:53 Dose: 220 mg Physical exam: Patient is sitting up in the bed comfortably, no acute distress, awake alert and oriented.. HEENT: Normocephalic. Neck is supple. Pupils reactive. Nostrils clear. Oral cav ity is moist. Neck reveals no JVD, carotid bruits, or thyromegaly. CHEST EXAMINATION: Trachea is central. Symmetrical expansion. Lung morocho clear to auscultation and percussion. CARDIAC: Normal S1, S2 with no gallops. No murmurs ABDOMEN: Soft. Bowel sounds present. Nontender. No organomegaly. No abdominal bruits. Extremities: reveal no edema. No clubbing or cyanosis Neurologically awake, alert, oriented x3 with well-coordinated movements. No focal deficits noted Skin: No rash or skin lesions. Psychiatric: Cooperative. Non-suicidal, Musculoskeletal: No joint swelling or deformity. Normal range of motion. Assessment: Acute syncopal episode. Possible orthostatic hypotension Hypertension Bilateral carotid stenosis, right side ICA above 85%, left side 50-70% stenosis History of CVA/TIA no residual weakness Macular degeneration and glaucoma Prior history of smoking GI and DVT prophylaxis No code Plan: Patient admitted on telemetry monitoring. Cardiology following and 2-D echo is ordered and pending. Patient did have carotid duplex ultrasound ordered which showed some stenosis more significant above 85% on the left versus 50-70% on the right and cardiology recommending vascular surgery consultation. Consult was placed and pending at this time. Aspirin and statin was ordered CODE STATUS was addressed and patient wishes to be no code. We'll await vascular consult and appreciate input and recommendations Encouraged increased activity as tolerated Possible discharge in 24 hours The impression and plan of care has been dictated by Mary Nevarez, Nurse Practitioner as directed. Dr. Kadeem MD I have performed a history and examination and MDM of this patient, discussed the same with the dictator, and agree with the dictator's assessment and plan as written ,documented as a scribe. Based on total visit time, I have performed more than 50% of the visit. Objective - Vital Signs Vital signs: Vital Signs Temp 97.6 F 08/27/22 08:50 Pulse 87 08/27/22 08:50 Resp 18 08/27/22 08:51 BP 116/64 08/27/22 08:50 Pulse Ox 96 08/27/22 08:50 FiO2 21 08/26/22 20:35 Intake & Output 08/26/22 08/27/22 08/27/22 18:59 06:59 18:59 Intake Total 0 190 Balance 0 190 Weight 63.503 kg Intake: IV 10 Invasive Line 1 10 Oral 0 180 Other: Voiding Method Toilet Toilet Toilet # Voids 1 1 # Bowel Movements 1 - Labs CBC & Chem 7: 08/26/22 12:25 08/26/22 12:25 Labs: Abnormal Lab Results - Last 24 Hours (Table) 08/26/22 08/26/22 Range/Units 12:25 12:25 APTT 20.8 L (22.0-30.0) sec Glucose 142 H (74-99) mg/dL
--- NOTE | 2022-08-27 18:17 | CA ---
Transthoracic Echo Report Name: Ifeoma Castillo Age: 87 Gender: F : 1935 Exam Date: 08/27/2022 10:48 Exam Location: [facility] Ht (in): 50 Wt (lb): 140 Ordering Physician: Aram Quan MD Attending/Referring Phys: Steel Grinder Jossy Fernanedz RDCS Procedure CPT: Indications: Syncope Cardiac Hx: Technical Quality: Fair Contrast 1: Total Dose (mL): Contrast 2: Total Dose (mL): MEASUREMENTS (Male / Female) Normal Values M-MODE Aortic Root Diameter MM 2.2 cm LA Systolic Diameter MM 3.8 cm LA Ao Ratio MM 1.7 AV Cusp Separation MM 1.3 cm DOPPLER AV Peak Velocity 90.4 cm/s AV Peak Gradient 3.3 mmHg LVOT Peak Velocity 60.5 cm/s LVOT Peak Gradient 1.5 mmHg MV Area PHT 3.7 cm??? MR Peak Velocity 432.2 cm/s MR Peak Gradient 74.7 mmHg Mitral E Point Velocity 65.7 cm/s Mitral A Point Velocity 111.4 cm/s Mitral E to A Ratio 0.6 MV Deceleration Time 206.6 ms TR Peak Velocity 246.6 cm/s TR Peak Gradient 24.3 mmHg FINDINGS Left Ventricle Grade 2 diastolic dysfunction. Left ventricular ejection fraction is estimated at 55-60 %. Right Ventricle Normal right ventricular size. Normal right ventricular global systolic function. Right Atrium Normal right atrial size. Left Atrium Normal left atrial size. Mitral Valve Moderate mitral regurgitation. Aortic Valve Trileaflet aortic valve. No aortic regurgitation. No aortic stenosis. Tricuspid Valve Mild tricuspid regurgitation. Pulmonic Valve Structurally normal pulmonic valve. Pericardium No pericardial or pleural effusion. Aorta Normal size aortic root and proximal ascending aorta. CONCLUSIONS Normal LV systolic function Moderate mitral regurgitation Previewed by: Dr. Prasad Resendez MD (Electronically Signed) Final Date: 27 August 2022 18:16
[2022-08-27 19:37] VITALS: RESP 16
[2022-08-27] MEDS: LATANOPROST 0.005% OPHTH DROPS 2.5 ML BTL BOTH EYES SCH (19:52)
[2022-08-27] MEDS ORDERED: ATORVASTATIN 40 MG TAB PO SCH (21:00)
[2022-08-28] MEDS: PANTOPRAZOLE 40 MG TABLET PO SCH (06:43)
[2022-08-28] MEDS: CHOLECALCIFEROL 25 MCG (1000 IU) TABLET PO SCH (08:34)
[2022-08-28] MEDS: ASPIRIN 81 MG PO SCH (08:34)
[2022-08-28] MEDS: HEPARIN SODIUM,PORCINE/PF 5,000 UNIT/0.5 ML SYRINGE SQ SCH (08:34)
[2022-08-28] MEDS: ASCORBIC ACID 500 MG TAB PO SCH (08:34)
[2022-08-28] MEDS: ZINC SULFATE 220 MG CAP PO SCH (08:35)
[2022-08-28] MEDS: LISINOPRIL-HCTZ 20-12.5 MG 1 EACH TAB PO SCH (08:35)
[2022-08-28 08:40] VITALS: TEMP 97
--- NOTE | 2022-08-28 11:33 | P.PN ---
Subjective Progress Note Date: 08/28/22 Principal diagnosis: Carotid stenosis Patient is seen and examined today as a follow-up for asymptomatic carotid stenosis. Patient's [id number]-aw-bid is at the bedside. Discussed with them plan for outpatient follow-up, CT angiogram head and neck outpatient as well as further discussion of surgical intervention for asymptomatic left ICA stenosis. Patient currently denies any focal deficits. Denies any further syncope. She states no shortness of breath, chest pain, fevers or chills. Objective - Vital Signs Vital signs: Vital Signs Temp 97.0 F L 08/28/22 08:31 Pulse 93 08/28/22 08:31 Resp 16 08/28/22 08:31 BP 121/58 08/28/22 08:31 Pulse Ox 95 08/28/22 08:31 FiO2 21 08/26/22 20:35 Intake & Output 08/27/22 08/28/22 08/28/22 18:59 06:59 18:59 Intake Total 1068 130 Balance 1068 130 Intake: IV 20 10 Invasive Line 1 20 10 Oral 1048 120 Other: Voiding Method Toilet Toilet Toilet # Voids 1 1 # Bowel Movements 1 1 - Exam General appearance: The patient is alert, oriented, appears in no acute distress. HET: Head is normocephalic and atraumatic. Pupils are equal and reactive. Neck: Supple without lymphadenopathy. Trachea midline. Left audible carotid bruit. Heart: Regular. Lungs: Equal expansion, normal respiratory effort. Abdomen: Soft, nontender, nondistended. Extremities: Normal skin color and turgor. No cyanosis, rash, ulceration, clubbing, or edema. Radial and pedal pulses are 2/4 bilaterally. Neurological: No focal deficits. Strength and sensation are grossly intact. - Labs CBC & Chem 7: 08/26/22 12:25 08/26/22 12:25 Assessment and Plan Assessment: 1. Syncope 2. Significant left ICA stenosis greater than 85%, right ICA stenosis 50-70% 3. Former smoker Plan: 1. Continue 81 mg aspirin and atorvastatin 40 mg, Plavix added 2. Continue with cardiology and medical workup 3. Recommend further outpatient workup with vascular surgery for asymptomatic left carotid artery stenosis Thank you for this consultation. Patient is cleared from vascular surgery for discharge. We will sign off at this time. The impression and plan of care has been dictated as directed. Dr. Goode I performed a history and examination of this patient, discussed the same with the dictator. I agree with the dictator's note ,documented as a scribe. Any additional findings or plans will be noted. reviewed carotid doppler. Recommend outpatient follow up and further imaging- CTA of the neck for surgical planning. Due to her age she may benefit with left TCAR and stenting.
--- NOTE | 2022-08-28 11:40 | P.PN ---
Subjective Progress Note Date: 08/28/22 HISTORY OF PRESENT ILLNESS: This is a 87-year-old female with a past medical history significant for hypertension. Patient does not follow with a lead qa analyst. We have been asked to see the patient in consultation for syncope. Patient examined at the bedside. Patient states that she woke up Saturday morning and was feeling in her normal state of health. She went to [employer]. She states that she stood up and was seen when she began to feel her legs get weak so she sat down and rested for a few minutes. She states she then felt better so she decided to stand up again and her legs felt like they're going to give out on her once again. She also reports feeling diaphoretic. She states that she sat down to rest and she slumped over onto her side. She does not believe that she lost consciousness. She denies losing control of bowel or bladder at that time. She does report that she had a bowel movement in route to the hospital. The patient denies having any chest pain or pressure this morning. She denies any shortness of breath. She denies any dizziness or lightheadedness. Orthostatic blood pressures were obtained and were unremarkable. Telemetry does not reveal any significant arrhythmias. * EKG reveals sinus mechanism with no signs of acute ischemia * Chest xray negative for acute process * Laboratory data: WBC 7.2. Hemoglobin 12.9. Platelet count 320. D-dimer 0.59. Sodium 137. Potassium 3.9. BUN 17. Creatinine 0.86. Troponin negative 3. * Current home cardiac medications include lisinoprilhydrochlorothiazide 2012.5 mg daily * Carotid Doppler: Elevated velocity in the left internal carotid artery suggestive more than 85% stenosis. There is 50-70% stenosis in the right internal carotid artery. 08/28/2022 Patient examined this morning at the bedside. Patient denies chest pain or pressure. She denies any shortness of breath. Patient denies any further episodes of presyncope. Echocardiogram completed revealing ejection fraction 55-60%. Vital signs are stable. PHYSICAL EXAM: VITAL SIGNS: Reviewed. GENERAL: Well-developed in no acute distress. HEENT: Head is normocephalic. Pupils are equal, round. Sclerae anicteric. Mucous membranes of the mouth are moist. Neck supple. Carotid bruit noted. LUNGS: Respirations even and unlabored. Lungs essentially clear to auscultation bilaterally. HEART: Regular rate and rhythm. S1 and S2 heard. ABDOMEN: Soft. Nondistended. Nontender. EXTREMITIES: Normal range of motion. No clubbing or cyanosis. Peripheral pulses intact. No lower extremity edema NEUROLOGIC: Awake and alert. Oriented x 3. ASSESSMENT: Presyncope Hypertension Bilateral carotid stenosis, carotid ultrasound reveals greater than 85% stenosis of left ICA, 80-70% stenosis right ICA PLAN: Continue current cardiac medications Patient is stable for discharge home today from a cardiac standpoint We will sign off. Please reconsult if needed. Nurse practitioner note has been reviewed by physician. Signing provider agrees with the documented findings, assessment, and plan of care. Objective - Vital Signs Vital signs: Vital Signs Temp 97.0 F L 08/28/22 08:31 Pulse 93 08/28/22 08:31 Resp 16 08/28/22 08:31 BP 121/58 08/28/22 08:31 Pulse Ox 95 08/28/22 08:31 FiO2 21 08/26/22 20:35 Intake & Output 08/27/22 08/28/22 08/28/22 18:59 06:59 18:59 Intake Total 1068 670 Balance 1068 670 Intake: IV 20 10 Invasive Line 1 20 10 Oral 1048 660 Other: Voiding Method Toilet Toilet Toilet # Voids 1 1 1 # Bowel Movements 1 1 - Labs CBC & Chem 7: 08/26/22 12:25 08/26/22 12:25
[2022-08-28 12:02] VITALS: BP 138/82; PULSE 98
--- NOTE | 2022-08-28 20:35 | P.DS ---
Providers Date of admission: 08/26/22 14:02 Expected date of discharge: 08/28/22 Attending physician: Ramiro Gonzales MD Consults: 08/26/22 14:02 Consult Physician Routine Consulting Provider: Rony Burgess Consult Reason/Comments: syncope Do you want consulting provider notified?: Yes 08/27/22 11:28 Consult Physician Urgent Consulting Provider: Patricia Brenner Consult Reason/Comments: carotid stenosis, syncope Do you want consulting provider notified?: Yes Primary care physician: John Fernandez Hospital Course: Final diagnosis Acute syncopal episode. 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 Patient will follow-up with Dr. Fernandez in the outpatient setting upon discharge. Patient is to continue with aspirin, Plavix, statin and close outpatient follow-up with vascular surgery to discuss possible ICA intervention. Total time taken is greater than 35 minutes. Hospital course This is a 87-year-old female who was recently admitted with syncopal episode with history of hypertension underwent cardio neurological workup Doppler which showed bilateral carotid stenosis with right side above 85% and left being 50- 70% and started on aspirin and Plavix along with a statin but has been evaluated and cleared by vascular surgery for outpatient further imaging and workup with possible intervention. Cardiology has cleared the patient as well. Recommend close monitoring of blood pressure and close outpatient follow-up with primary care provider as well. Currently no reports of chest pain, shortness of breath, or palpitations. Patient is afebrile. No reports of nausea or vomiting and patient is tolerating diet. Patient will be discharged home today. Guarded prognosis Physical exam: Gen: This is a 87-year-old female who is awake, alert and oriented 3, well- developed, well-nourished HEENT: Head is atraumatic, normocephalic. Pupils equal, round. Sclerae is anicteric. NECK: Supple. No JVD. No lymphadenopathy. No thyromegaly. LUNGS: Clear to auscultation. No wheezes or rhonchi. No intercostal retra ctions. HEART: Regular rate and rhythm. No murmur. ABDOMEN: Soft. Bowel sounds are present. No masses. No tenderness. EXTREMITIES: No pedal edema. No calf tenderness. NEUROLOGICAL: Patient is awake, alert and oriented x3. Cranial nerves 2 through 12 are grossly intact. Please refer to medication reconciliation sheet for a list of medications. The impression and plan of care has been dictated by Mary Nevarez, Nurse Practitioner as directed. Dr. Kadeem MD I have performed a history and examination and MDM of this patient, discussed the same with the dictator, and agree with the dictator's assessment and plan as written ,documented as a scribe. Based on total visit time, I have performed more than 50% of the visit. Patient Condition at Discharge: Fair Plan - Discharge Summary Discharge Rx Participant: No New Discharge Prescriptions: New Aspirin 81 mg PO DAILY #30 tab Clopidogrel [Plavix] 75 mg PO DAILY 30 Days #30 tab Atorvastatin [Lipitor] 40 mg PO HS #30 tab Continue Lisinopril-Hctz 20-12.5 mg [Zestoretic 20-12.5] 1 tab PO DAILY Latanoprost [Xalatan 0.005%] 1 drop BOTH EYES HS Ascorbic Acid [Vitamin C] 1,000 mg PO DAILY #60 tab Cholecalciferol [Vitamin D3 (25 Mcg = 1000 Iu)] 25 mcg PO DAILY #30 tablet Zinc Gluconate [Zinc] 50 mg PO DAILY Omeprazole Magnesium [PriLOSEC OTC] 20 mg PO DAILY Discharge Medication List Latanoprost [Xalatan 0.005%] 1 drop BOTH EYES HS 08/13/18 [History] Lisinopril-Hctz 20-12.5 mg [Zestoretic 20-12.5] 1 tab PO DAILY 08/13/18 [History] Omeprazole Magnesium [PriLOSEC OTC] 20 mg PO DAILY 07/26/21 [History] Ascorbic Acid [Vitamin C] 1,000 mg PO DAILY #60 tab 07/29/21 [Rx] Cholecalciferol [Vitamin D3 (25 Mcg = 1000 Iu)] 25 mcg PO DAILY #30 tablet 07/29/21 [Rx] Zinc Gluconate [Zinc] 50 mg PO DAILY 08/26/22 [History] Aspirin 81 mg PO DAILY #30 tab 08/28/22 [Rx] Atorvastatin [Lipitor] 40 mg PO HS #30 tab 08/28/22 [Rx] Clopidogrel [Plavix] 75 mg PO DAILY 30 Days #30 tab 08/28/22 [Rx] Follow up Appointment(s)/Referral(s): John Fernandez MD [Primary Care Provider] - 1-2 days (Office is closed for lunch. Please schedule follow up appointment. ) Rivas Goode DO [STAFF PHYSICIAN] - 09/11/22 2:00 pm Patient Instructions/Handouts: Syncope (DC), Carotid Artery Disease (DC) Activity/Diet/Wound Care/Special Instructions: Activity Limited until follow-up Continue taking medications as prescribed Follow-up with vascular surgery outpatient for further testing and possible surgical intervention discussion Continue heart healthy diet Follow-up cardiology outpatient as needed Discharge Disposition: HOME SELF-CARE
[2022-08-29] MEDS ORDERED: CLOPIDOGREL 75 MG TAB PO SCH (09:00)
== END 2022-08-28 13:16 | disposition home or self-care (01) | DRG 68 ==
LOC: EC 12:03 → 3SCARD 14:02
PROVIDERS: ADMIT Internal Medicine; ATTEND Internal Medicine
DX: I65.23 Occlusion and stenosis of bilateral carotid arteries (principal); Z28.310 Unvaccinated for COVID-19; Z28.21 Immunization not carried out because of patient refusal; I25.9 Chronic ischemic heart disease, unspecified; H40.9 Unspecified glaucoma; H35.30 Unspecified macular degeneration; I10 Essential (primary) hypertension; Z66 Do not resuscitate; G40.909 Epilepsy, unspecified, not intractable, without status epilepticus; Z86.73 Personal history of transient ischemic attack (TIA), and cerebral infarction without residual deficits; Z86.16 Personal history of COVID-19; K21.9 Gastro-esophageal reflux disease without esophagitis; Z87.891 Personal history of nicotine dependence; Z79.899 Other long term (current) drug therapy
CPT/HCPCS: 36415; 70450; 71046; 80053; 81001; 84484; 85025; 85379; 85610; 85730; 93005; 93306; 93880; 94760; 99285

== ENCOUNTER 2022-11-19 05:53 | Inpatient (IN) | payer MEDICARE ==
[2022-11-19] MEDS ORDERED: LACTATED RINGERS 1,000 ML IV SCH (06:08)
[2022-11-19] MEDS ORDERED: MIDAZOLAM 2 MG/2 ML VIAL IV PRN (06:08)
[2022-11-19] MEDS ORDERED: ONDANSETRON 4 MG/2 ML VIAL IVP ONE (06:08)
[2022-11-19] MEDS ORDERED: DEXAMETHASONE SOD PHOSPHATE 4 MG/ML 1 ML VIAL IV ONE (06:08)
[2022-11-19] MEDS ORDERED: HYDROmorphone 0.5 MG/0.5 ML SYRINGE IVP PRN (07:00)
[2022-11-19] MEDS ORDERED: SUCCINYLCHOLINE CHLORIDE 200 MG/10 ML VIAL IV ONE (07:10)
[2022-11-19] MEDS ORDERED: GLYCOPYRROLATE 0.2 MG/ML 2 ML VIAL ONE (07:10)
[2022-11-19] MEDS ORDERED: fentaNYL (PF) 50 MCG/ML 2 ML AMP ONE (07:10)
[2022-11-19] MEDS ORDERED: METOPROLOL TARTRATE 5 MG/5 ML VIAL IVP ONE (07:10)
[2022-11-19] MEDS ORDERED: MIDAZOLAM 2 MG/2 ML VIAL ONE (07:10)
[2022-11-19] MEDS ORDERED: PHENYLEPHRINE-0.9% NACL SYG 1,000 MCG/10 ML SYRINGE ONE (07:10)
[2022-11-19] MEDS ORDERED: PROTAMINE SULFATE 10 MG/ML 5 ML VIAL IV ONE (07:10)
[2022-11-19] MEDS ORDERED: NEOSTIGMINE 1 MG/ML 10 ML VIAL ONE (07:10)
[2022-11-19] MEDS ORDERED: ePHEDrine 50 MG/ML 1 ML VIAL ONE (07:10)
[2022-11-19] MEDS ORDERED: LIDOCAINE 2% INJ 20 MG/ML (2 ML VIAL) ONE (07:10)
[2022-11-19] MEDS ORDERED: PROPOFOL 10 MG/ML 20 ML VIAL IV ONE (07:10)
[2022-11-19] MEDS ORDERED: ESMOLOL 100 MG/10 ML VIAL ONE (07:10)
[2022-11-19] MEDS ORDERED: ROCURONIUM 10 MG/ML (5 ML VIAL) IV ONE (07:10)
[2022-11-19] MEDS ORDERED: HEPARIN SODIUM,PORCINE 10,000 UNIT/ML 1 ML VIAL ONE (07:10)
--- NOTE | 2022-11-19 07:25 | P.GSHP ---
History of Present Illness H&P Date: 11/19/22 Chief Complaint: carotid artery stenosis 87 year old female with history of CVA, worsening carotid stenosis on the left now greater than 90% seen on CTA and Carotid Doppler presents today for elective left CEA. She denies any lateralizing symptoms such as weakness, vision c hanges, or speech issues. She denies any fevers, chills, chest pain or shortness of breath. - Review of Systems All systems: negative (what is mentioned in the PMH or HPI) Past Medical History Past Medical History: CVA/TIA, Eye Disorder, GERD/Reflux, Hyperlipidemia, Hypertension, Memory Impairment, Syncope, Vascular Disorder Additional Past Medical History / Comment(s): Syncopy at times, bilateral macular degeneration, glaucoma. History of Any Multi-Drug Resistant Organisms: None Reported Past Surgical History: Cholecystectomy, Hysterectomy, Tonsillectomy Past Anesthesia/Blood Transfusion Reactions: No Reported Reaction Additional Past Anesthesia/Blood Transfusion Reaction / Comment(s): Pt has never received blood. Smoking Status: Former smoker - Past Family History Mother History Unknown: Yes Additional Family Medical History / Comment(s): Mother when pt was 10 yrs old. Father History Unknown: Yes Additional Family Medical History / Comment(s): Father when pt was 14 yrs old Medications and Allergies Home Medications Medication Instructions Recorded Confirmed Type Latanoprost [Xalatan 0.005%] 1 drop BOTH EYES HS 08/13/18 11/13/22 History Lisinopril-Hctz 20-12.5 mg 1 tab PO QAM 08/13/18 11/13/22 History [Zestoretic 20-12.5] Omeprazole Magnesium [PriLOSEC OTC] 20 mg PO QAM 07/26/21 11/13/22 History Zinc Gluconate [Zinc] 50 mg PO QAM 08/26/22 11/13/22 History Atorvastatin [Lipitor] 40 mg PO HS #30 tab 08/28/22 11/13/22 Rx Ascorbic Acid [Vitamin C] 1,000 mg PO QAM 11/13/22 11/13/22 History Cholecalciferol [Vitamin D3 (25 25 mcg PO QAM 11/13/22 11/13/22 History Mcg = 1000 Iu)] Clopidogrel [Plavix] 75 mg PO QAM 11/13/22 11/13/22 History Allergies Allergy/AdvReac Type Severity Reaction Status Date / Time blue dye Allergy Rash/Hives Verified 11/19/22 06:15 Surgical - Exam Vital Signs Temp Pulse Resp BP Pulse Ox 97.1 F L 84 16 151/68 97 11/19/22 06:23 11/19/22 06:23 11/19/22 06:23 11/19/22 06:23 11/19/22 06:23 Results - Imaging Comments: CTA demonstrates severely calcified left ICA with >90% stenosis Assessment and Plan Assessment: Left ICA stenosis >90% History of CVA History of tobacco use Plan: To OR for left CEA Questions answered, consent signed.
[2022-11-19] MEDS ORDERED: LIDOCAINE 1% INJ 10MG/ML (20 ML MDV) SQ ONE (08:02)
[2022-11-19] MEDS ORDERED: ceFAZolin 2,000 MG in SODIUM CHLORIDE 0.9% 500 ML IRRIGATION ONE (08:03)
[2022-11-19] MEDS ORDERED: HEPARIN SODIUM (1,000 UNIT/ML) 2,000 UNIT in SODIUM CHLORIDE 0.9% 1,000 ML IRRIGATION ONE (08:03)
[2022-11-19] MEDS ORDERED: GELATIN SPONGE,ABSORB (LARGE) 1 EACH SPONGE TOPICAL ONE (08:28)
[2022-11-19] MEDS ORDERED: THROMBIN (BOVINE) 5,000 UNIT VIAL TOPICAL ONE ×2 (08:29)
[2022-11-19] MEDS ORDERED: LACTATED RINGERS 1,000 ML IV ONE (09:22)
[2022-11-19] MEDS ORDERED: TRIMETHOBENZAMIDE 100 MG/ML 2 ML VIAL IM PRN (09:27)
[2022-11-19] MEDS ORDERED: ACETAMINOPHEN TAB 325 MG TAB PO PRN (09:27)
[2022-11-19] MEDS ORDERED: MAG HYDROX/AL HYDROX/SIMETH 30 ML CUP PO PRN (09:27)
[2022-11-19] MEDS ORDERED: BENZOCAINE/MENTHOL LOZENG 1 EACH LOZENGE MUCOUS MEM PRN (09:27)
--- NOTE | 2022-11-19 09:34 | P.OP ---
Description of Procedure: Date of Procedure: 11/19/2022 Preoperative Diagnosis: Left Internal carotid artery stenosis greater than 90% Postoperative Diagnosis: Same Procedure(s) Performed: Left carotid endarterectomy with patch angioplasty Anesthesia: ALVA Surgeon: Rivas Goode Estimated Blood Loss (ml): 50 Pathology: Left carotid plaque Condition: stable Disposition: PACU Indications for Procedure: 87-year-old female with history of CVA and worsening left internal carotid artery stenosis found on CTA and carotid Doppler presents to the hospital for elective carotid endarterectomy and patch angioplasty. Description of Procedure: After written informed consent was obtained the patient all risks benefits and competitions were described the patient is brought to the operative suite and laid in a supine position. The area of the neck was prepped and draped in usual sterile fashion after appropriate anesthetic was performed per the anesthesiologist. A timeout was performed in normal fashion antibiotics were administered prior to incision. An oblique incision was then created just anterior to the sternocleidomastoid musculature with a 10 blade scalpel and dissection was carried down to the carotid sheath. The carotid sheath was then entered after facial vein was located and suture ligated in normal fashion. The common carotid, internal carotid, external carotid and superior thyroid arteries were located and dissected free in a meticulous fashion circumferentially and controlled with vessel loops. Attention was then placed to locating the vagus nerve as well as hypoglossal nerve which were both spared. Once controlled patient was administered heparin and followed with ACTs for appropriate heparinization. Once ACT was above 200 the proximal and distal aspects of the dissection were then controlled with vascular clamps. Arteriotomy was then created with 11 blade scalpel and extended with Tavarez Hendrix scissors. Utilizing cerebral oximetry, once clamped she maintained stable values throughout and no shunt was required and endarterectomy was then performed with a [place] and elevator. The plaque was then feathered at the distal aspect and the internal carotid artery and removed. The area was copiously irrigated with heparinized saline and all free debris was removed. A 7-0 Prolene suture was then placed to tack the di stal aspect of the dissection at the internal carotid artery. A 0.8 x 8 cm bovine pericardial patch was then chosen and patch angioplasty was performed with 6-0 Prolene suture in a running fashion. Prior to last sutures being placed the inflow was released flushing any free debris out of the patch. This was reclamped and the internal carotid artery was released revealing good brisk flow and was once again reclamped. The external carotid and superior thyroid artery were then released followed by the common carotid artery to allow any free debris to be flushed into the external system. Final sutures were placed and secured. Internal carotid artery control was then released. Good pulsatile flow was noted through the patch and a Doppler was utilized demonstrating good brisk flow into the internal, external carotid arteries without any signs of obstruction. Hemostasis was then assured with Gelfoam and thrombin. A 10- [place] SASHA drain was then placed in normal fashion and secured with 3-0 nylon suture. The incision was then closed in a multilayer fashion after hemostasis was assured. The skin was then cleansed and dressings were placed. Patient tolerated the procedure well and was following commands and moving all extremities. Patient was then sent to PACU for recovery.
[2022-11-19] MEDS ORDERED: PHENYLEPHRINE-0.9% NACL SYG 1,000 MCG/10 ML SYRINGE IV ONE (10:05)
[2022-11-19] MEDS: PHENYLEPHRINE-0.9% NACL SYG 1,000 MCG/10 ML SYRINGE IV ONE ×2 (10:05→10:15)
[2022-11-19] MEDS: PHENYLEPHRINE 40 MG in SODIUM CHLORIDE 0.9% 250 ML IV SCH ×2 (10:28→13:00)
[2022-11-19 14:28] LABS: HCT 33.6 % (34.0-46.0); HGB 11.4 gm/dL (11.4-16.0); MCH 31.4 pg (25.0-35.0); MCHC 34.1 g/dL (31.0-37.0); MCV 91.9 fL (80.0-100.0); Mean Platelet Volume 8.1; Platelet Count 291 k/uL (150-450); RBC 3.65 m/uL (3.80-5.40); RDW 12.7 % (11.5-15.5); WBC 9.6 k/uL (3.8-10.6)
[2022-11-19 14:39] LABS: Calcium 8.6 mg/dL (8.4-10.2); Potassium 3.4 mmol/L (3.5-5.1)
[2022-11-19] MEDS: PSEUDOEPHEDRINE 30 MG TAB PO PRN ×2 (14:54→21:11)
[2022-11-19 15:03] LABS: Lymphocytes # (M) 0.58 k/uL (1.0-4.8); Monocytes # (M) 0.38 k/uL (0-1.0); Neutrophils # (M) 8.54 k/uL (1.3-7.7); Neutrophils % (M) 89 %; Nucleated Red Blood Cells 0 /100 WBC (0-0); Total Cells Counted 100
[2022-11-19 15:11] LABS: Toxic Granulation Present
[2022-11-19] MEDS ORDERED: POTASSIUM CHLORIDE ER 20 MEQ TAB.ER PO STA (16:27)
--- NOTE | 2022-11-19 16:32 | P.CONS ---
History of Present Illness - Reason for Consult Hypotension - History of Present Illness Patient is admitted for left internal carotid stenosis and endarterectomy. Patient postoperatively is doing well. Blood pressures were controlled actually bit hypotensive which is expected postoperatively patient takes 20 mg of lisinopril in the 25 mg of hydrochlorothiazide at home for blood pressure. REVIEW OF SYSTEMS: CONSTITUTIONAL: No fever, no malaise, no fatigue. HEENT: No recent visual problems or hearing problems. Denied any sore throat. CARDIOVASCULAR: No chest pain, orthopnea, PND, no palpitations, no syncope. PULMONARY: No shortness of breath, no cough, no hemoptysis. GASTROINTESTINAL: No diarrhea, no nausea, no vomiting, no abdominal pain. NEUROLOGICAL: No headaches, no weakness, no numbness. HEMATOLOGICAL: Denies any bleeding or petechiae. GENITOURINARY: Denies any burning micturition, frequency, or urgency. MUSCULOSKELETAL/RHEUMATOLOGICAL: Denies any joint pain, swelling, or any muscle pain. ENDOCRINE: Denies any polyuria or polydipsia. The rest of the 14-point review of systems is negative. PHYSICAL EXAMINATION: GENERAL: The patient is alert and oriented x3, not in any acute distress. Well developed, well nourished. HEENT: Pupils are round and equally reacting to light. EOMI. No scleral icterus. No conjunctival pallor. Normocephalic, atraumatic. No pharyngeal erythema. No thyromegaly. Postsurgical packing on the left side of the neck CARDIOVASCULAR: S1 and S2 present. No murmurs, rubs, or gallops. PULMONARY: Chest is clear to auscultation, no wheezing or crackles. ABDOMEN: Soft, nontender, nondistended, normoactive bowel sounds. No palpable organomegaly. MUSCULOSKELETAL: No joint swelling or deformity. EXTREMITIES: No cyanosis, clubbing, or pedal edema. NEUROLOGICAL: Gross neurological examination did not reveal any focal deficits. SKIN: No rashes. Assessment and plan -Perioperative hypotension expected postoperatively will cut down the dose of lisinopril to 10 mg and hold off on hydrochlorothiazide monitor blood pressure -Hyperlipidemia -Hypertension: Management as mentioned above -History of CVA with a carotid occlusion for which patient underwent endarterectomy and patient is on Plavix postoperative management as per primary service DVT prophylaxis: As per primary service, patient is on subcutaneous heparin Past Medical History Past Medical History: CVA/TIA, Eye Disorder, GERD/Reflux, Hyperlipidemia, Hypertension, Memory Impairment, Syncope, Vascular Disorder Additional Past Medical History / Comment(s): Syncopy at times, bilateral macular degeneration, glaucoma. History of Any Multi-Drug Resistant Organisms: None Reported Past Surgical History: Cholecystectomy, Hysterectomy, Tonsillectomy Past Anesthesia/Blood Transfusion Reactions: No Reported Reaction Additional Past Anesthesia/Blood Transfusion Reaction / Comm: Pt has never received blood. Past Psychological History: No Psychological Hx Reported Additional Psychological History / Comment(s): Pt resides with jake-in-law. Smoking Status: Former smoker Past Alcohol Use History: None Reported Additional Past Alcohol Use History / Comment(s): Pt started smoking in 1951 and quit in 2002 Past Drug Use History: None Reported - Past Family History Mother History Unknown: Yes Additional Family Medical History / Comment(s): Mother when pt was 10 yrs old. Father History Unknown: Yes Additional Family Medical History / Comment(s): Father when pt was 14 yrs old Medications and Allergies Home Medications Medication Instructions Recorded Confirmed Type Latanoprost [Xalatan 0.005%] 1 drop BOTH EYES HS 08/13/18 11/13/22 History Lisinopril-Hctz 20-12.5 mg 1 tab PO QAM 08/13/18 11/13/22 History [Zestoretic 20-12.5] Omeprazole Magnesium [PriLOSEC OTC] 20 mg PO QAM 07/26/21 11/13/22 History Zinc Gluconate [Zinc] 50 mg PO QAM 08/26/22 11/13/22 History Atorvastatin [Lipitor] 40 mg PO HS #30 tab 08/28/22 11/13/22 Rx Ascorbic Acid [Vitamin C] 1,000 mg PO QAM 11/13/22 11/13/22 History Cholecalciferol [Vitamin D3 (25 25 mcg PO QAM 11/13/22 11/13/22 History Mcg = 1000 Iu)] Clopidogrel [Plavix] 75 mg PO QAM 11/13/22 11/13/22 History Allergies Allergy/AdvReac Type Severity Reaction Status Date / Time blue dye Allergy Rash/Hives Verified 11/19/22 06:15 Physical Exam Vitals: Vital Signs Temp Pulse Resp BP BP Pulse Ox 11/19/22 16:20 97.8 F 61 16 99/54 93 L 11/19/22 15:37 97.6 F 61 18 94 L 11/19/22 14:55 99/62 11/19/22 14:25 94/42 11/19/22 14:16 97.6 F 63 18 100/59 94 L 11/19/22 14:00 60 16 111/53 94 L 11/19/22 13:27 54 L 16 114/43 110/53 93 L 11/19/22 13:00 55 L 16 124/48 118/58 93 L 11/19/22 12:30 54 L 16 133/58 126/56 99 11/19/22 12:15 53 L 15 131/51 128/59 99 11/19/22 12:00 42 L 15 123/50 146/65 99 11/19/22 11:45 42 L 15 135/46 136/60 99 11/19/22 11:30 41 L 16 137/45 152/62 99 11/19/22 11:15 43 L 14 136/46 146/63 99 11/19/22 11:00 41 L 14 135/55 134/62 99 11/19/22 10:45 43 L 14 138/50 127/60 99 11/19/22 10:40 42 L 125/43 117/56 11/19/22 10:30 48 L 14 114/42 115/57 96 11/19/22 10:15 49 L 14 109/47 118/55 95 11/19/22 10:10 53 L 14 114/40 122/80 97 11/19/22 10:00 51 L 14 99/45 103/55 97 11/19/22 09:45 49 L 14 113/48 115/59 97 11/19/22 09:40 97.1 F L 68 14 120/48 97 11/19/22 06:23 97.1 F L 84 16 151/68 97 Intake and Output 11/19/22 11/19/22 11/19/22 06:59 14:59 22:59 Intake Total 200 1897 Output Total 350 Balance 200 1547 Intake: IV 200 1697 Oral 200 Output: Urine 300 Estimated Blood Loss 50 Other: Weight 62.6 kg 62.6 kg Results CBC & Chem 7: 11/19/22 13:55 11/19/22 13:55 Labs: Abnormal Lab Results - Last 24 Hours (Table) 11/19/22 11/19/22 Range/Units 13:55 13:55 RBC 3.65 L (3.80-5.40) m/uL Hct 33.6 L (34.0-46.0) % Neutrophils # (Manual) 8.54 H (1.3-7.7) k/uL Lymphocytes # (Manual) 0.58 L (1.0-4.8) k/uL Potassium 3.4 L (3.5-5.1) mmol/L Glucose 174 H (74-99) mg/dL
[2022-11-19] MEDS ORDERED: LATANOPROST 0.005% OPHTH DROPS 2.5 ML BTL BOTH EYES SCH (21:00)
[2022-11-19] MEDS ORDERED: ATORVASTATIN 40 MG TAB PO SCH (21:00)
[2022-11-19] MEDS: HEPARIN SODIUM,PORCINE/PF 5,000 UNIT/0.5 ML SYRINGE SQ SCH (21:09)
[2022-11-20] MEDS ORDERED: ZINC SULFATE 220 MG CAP PO SCH (09:00)
[2022-11-20] MEDS ORDERED: ASCORBIC ACID 500 MG TAB PO SCH (09:00)
[2022-11-20] MEDS ORDERED: lisinopriL 20 MG TAB PO SCH (09:00)
[2022-11-20] MEDS ORDERED: CLOPIDOGREL 75 MG TAB PO SCH (09:00)
[2022-11-20] MEDS ORDERED: PANTOPRAZOLE 40 MG TABLET PO SCH (09:00)
[2022-11-20] MEDS ORDERED: lisinopriL 10 MG TAB PO SCH (09:00)
[2022-11-20] MEDS ORDERED: CHOLECALCIFEROL 25 MCG (1000 IU) TABLET PO SCH (09:00)
[2022-11-20] MEDS ORDERED: LISINOPRIL-HCTZ 20-12.5 MG 1 EACH TAB PO SCH (09:00)
[2022-11-20] MEDS: HEPARIN SODIUM,PORCINE/PF 5,000 UNIT/0.5 ML SYRINGE SQ SCH (09:24)
[2022-11-20 09:31] VITALS: RESP 18; TEMP 98.1
[2022-11-20 12:04] VITALS: BP 96/56; PULSE 77
--- NOTE | 2022-11-20 12:21 | P.DS ---
Providers Date of admission: 11/19/22 05:53 Attending physician: Rivas Goode DO Consults: 11/19/22 12:44 Consult Physician Routine Consulting Provider: Lewis Dawson Consult Reason/Comments: Medical Management s/p left carotid endarterectomy Do you want consulting provider notified?: Already Contacted Primary care physician: John Fernandez [facility] Course: Pleasant 87-year-old female who came in yesterday for left carotid endarterectomy with patch angioplasty for left internal ICA stenosis greater than 90%. She is postop day #1. She has had some lower blood pressures in the mid 90s systolic to low 100s. She is asymptomatic. No focal deficits noted. SASHA drain intact with approximately 5-10 mL of serosanguineous drainage. Patient has not been up initially this morning she has been sitting up and tolerating a regular diet without any difficulty swallowing. She's been afebrile. Exam General appearance: The patient is alert, oriented, appears in no acute distress. HET: Head is normocephalic. Neck: Supple without lymphadenopathy. Trachea midline. Left-sided neck with SASHA drain discontinued, left neck incision well approximated with a small complaint area with losing, soft around incision with no noted hematoma. Heart: Regular. Lungs: Equal expansion, normal respiratory effort. Abdomen: Soft, nontender, nondistended. Extremities: Normal skin color and turgor. Neurological: No focal deficits. Alert and oriented 3. Assessment Left internal carotid artery stenosis greater than 90% status post left carotid endarterectomy with patch angioplasty Plan 1. SASHA drain discontinued 2. Discontinue Brenner catheter 3. Encourage ambulation 4. Internal medicine consulted for medical management 5. Continue current medications 6. Plan for discharge this afternoon The impression and plan of care has been dictated as directed. I performed a history and examination of this patient, discussed the same with the dictator. I agree with the dictator's note ,documented as a scribe. Any additional findings or plans will be noted. Procedures: Left carotid endarterectomy with patch angioplasty Patient Condition at Discharge: Stable Plan - Discharge Summary Discharge Rx Participant: No New Discharge Prescriptions: New Benzocaine/Menthol Lozeng [Cepacol lozenge] 1 each MUCOUS MEM Q2HR PRN lozenge PRN Reason: Sore Throat Pseudoephedrine [Sudafed] 60 mg PO Q6HR PRN tab PRN Reason: Congestion Mag Hydrox/Al Hydrox/Simeth [Maalox] 30 ml PO Q6HR PRN ml PRN Reason: Indigestion Acetaminophen Tab [Tylenol] 650 mg PO Q4HR PRN tab PRN Reason: Pain lisinopriL [Zestril] 10 mg PO DAILY tab Continue Latanoprost [Xalatan 0.005%] 1 drop BOTH EYES HS Zinc Gluconate [Zinc] 50 mg PO QAM Ascorbic Acid [Vitamin C] 1,000 mg PO QAM Cholecalciferol [Vitamin D3 (25 Mcg = 1000 Iu)] 25 mcg PO QAM Clopidogrel [Plavix] 75 mg PO QAM Omeprazole Magnesium [PriLOSEC OTC] 20 mg PO QAM Atorvastatin [Lipitor] 40 mg PO HS #30 tab Discontinued Lisinopril-Hctz 20-12.5 mg [Zestoretic 20-12.5] 1 tab PO QAM Discharge Medication List Latanoprost [Xalatan 0.005%] 1 drop BOTH EYES HS 08/13/18 [History] Omeprazole Magnesium [PriLOSEC OTC] 20 mg PO QAM 07/26/21 [History] Zinc Gluconate [Zinc] 50 mg PO QAM 08/26/22 [History] Atorvastatin [Lipitor] 40 mg PO HS #30 tab 08/28/22 [Rx] Ascorbic Acid [Vitamin C] 1,000 mg PO QAM 11/13/22 [History] Cholecalciferol [Vitamin D3 (25 Mcg = 1000 Iu)] 25 mcg PO QAM 11/13/22 [History] Clopidogrel [Plavix] 75 mg PO QAM 11/13/22 [History] Acetaminophen Tab [Tylenol] 650 mg PO Q4HR PRN tab 11/20/22 [Rx] Benzocaine/Menthol Lozeng [Cepacol lozenge] 1 each MUCOUS MEM Q2HR PRN lozenge 11/20/22 [Rx] Mag Hydrox/Al Hydrox/Simeth [Maalox] 30 ml PO Q6HR PRN ml 11/20/22 [Rx] Pseudoephedrine [Sudafed] 60 mg PO Q6HR PRN tab 11/20/22 [Rx] lisinopriL [Zestril] 10 mg PO DAILY tab 11/20/22 [Rx] Follow up Appointment(s)/Referral(s): Roge Russell [NON-STAFF] - Rivas Goode DO [STAFF PHYSICIAN] - 2 Weeks Patient Instructions/Handouts: Carotid Endarterectomy (DC) Activity/Diet/Wound Care/Special Instructions: May shower starting tomorrow 11/21/2022. No strenuous activity or heavy lifting. Monitor surgical site for infection including drainage, swelling, redness, fever greater than 100.[address] Goode's office if any signs or symptoms. Discharge Disposition: HOME WITH HOME HEALTH SERVICES
--- NOTE | 2022-11-20 15:40 | P.PN ---
Subjective Progress Note Date: 11/20/22 - Reason for Consult Hypotension - History of Present Illness Patient is admitted for left internal carotid stenosis and endarterectomy. Patient postoperatively is doing well. Blood pressures were controlled actually bit hypotensive which is expected postoperatively patient takes 20 mg of lisinopril in the 25 mg of hydrochlorothiazide at home for blood pressure. 11/20/2022 This is a 87-year-old female who was admitted under vascular surgery services underwent endarterectomy for left internal carotid stenosis postop day #1. Patient is doing relatively well and SASHA drain is being removed along with indwelling Brenner catheter and plans for discharge today. Plavix has been resumed per vascular surgery the med reconciliation has been done. Patient does normally take a lisinopril/Zestoretic and recommend discontinuing and will continue with lower dose lisinopril 10 mg daily with close outpatient follow-up with primary care provider. Patient is currently afebrile with no reports of chest pain or shortness of breath noted. Patient denies having any difficulty in swallowing and reports family will be coming to help and stay with her. Home care is being arranged outpatient. Patient is medically stable for discharge today. Review of systems: Constitutional: No reports of fatigue, fever, or chills Cardiovascular: No reports of chest pain or palpitations Respiratory: No reports of shortness of breath or cough GI: No reports of nausea, vomiting, or diarrhea : No reports of dysuria or retention Neurovascular: No reports of weakness or numbness All medications have been reviewed Active Medications Acetaminophen (Acetaminophen Tab 325 Mg Tab) 650 mg PO Q4HR PRN PRN Reason: Pain Al Hydroxide/Mg Hydroxide (Mag Hydrox/Al Hydrox/Simeth 30 Ml Cup) 30 ml PO Q6HR PRN PRN Reason: Indigestion Ascorbic Acid (Ascorbic Acid 500 Mg Tab) 1,000 mg PO QAM [facility] Last Admin: 11/20/22 09:28 Dose: 1,000 mg Atorvastatin Calcium (Atorvastatin 40 Mg Tab) 40 mg PO [facility] Last Admin: 11/19/22 21:11 Dose: 40 mg Benzocaine/Menthol (Benzocaine/Menthol Lozeng 1 Each Lozenge) 1 each MUCOUS MEM Q2HR PRN PRN Reason: Sore Throat Cholecalciferol (Cholecalciferol 25 Mcg (1000 Iu) Tablet) 25 mcg PO QAM [facility] Last Admin: 11/20/22 09:24 Dose: 25 mcg Clopidogrel Bisulfate (Cl[facility]idogrel 75 Mg Tab) [facility] Admin: 11/20/22 09:24 Dose: 75 mg Heparin Sodium (Porcine) (Heparin Sodium,Porcine/Pf 5,000 Unit/0.5 Ml Syringe) 5,000 unit SQ Q12HR [facility] Last Admin: 11/20/22 09:24 Dose: 5,000 unit Latanoprost (Latanoprost 0.005% Ophth Drops 2.5 Ml Btl) 1 drops BOTH EYES HS [facility] Last Admin: 11/19/22 21:10 Dose: 1 drops Lisinopril (Lisinopril 10 Mg Tab) 10 mg PO DAILY [facility] Last Admin: 11/20/22 09:23 Dose: Not Given Pantoprazole Sodium (Pantoprazole 40 Mg Tablet) [address] [facility] Last Admin: 11/20/22 09:24 Dose: 40 mg Pseudoephedrine HCl (Pseudoephedrine 30 Mg Tab) 60 mg PO Q6HR PRN PRN Reason: Congestion Last Admin: 11/19/22 21:11 Dose: 60 mg Trimethobenzamide HCl (Trimethobenzamide 100 Mg/Ml 2 Ml Vial) 200 mg IM Q4HR PRN PRN Reason: Nausea And Vomiting Zinc Sulfate (Zinc Sulfate 220 Mg Cap) [address] [facility] Last Admin: 11/20/22 09:24 Dose: 220 mg PHYSICAL EXAMINATION: GENERAL: The patient is alert and oriented x3, not in any acute distress. Well developed, well nourished. HEENT: Pupils are round and equally reacting to light. EOMI. No scleral icterus. No conjunctival pallor. Normocephalic, atraumatic. No pharyngeal erythema. No thyromegaly. Postsurgical packing on the left side of the neck and SASHA drain being removed CARDIOVASCULAR: S1 and S2 present. No murmurs, rubs, or gallops. PULMONARY: Chest is clear to auscultation, no wheezing or crackles. ABDOMEN: Soft, nontender, nondistended, normoactive bowel sounds. No palpable organomegaly. MUSCULOSKELETAL: No joint swelling or deformity. EXTREMITIES: No cyanosis, clubbing, or pedal edema. NEUROLOGICAL: Gross neurological examination did not reveal any focal deficits. SKIN: No rashes. Assessment: -Perioperative hypotension expected postoperatively will cut down the dose of lisinopril to 10 mg and hold off on hydrochlorothiazide, encouraged to monitor blood pressure in the outpatient setting -Hyperlipidemia -Hypertension history: Management as mentioned above -History of CVA with a carotid occlusion for which patient underwent endarterectomy, and patient is on Plavix which has been resumed by primary service -DVT prophylaxis: As per primary service, patient is on subcutaneous heparin Patient is medically stable for discharge today. Thank you kindly for this consultation and we will continue to follow during hospitalization. The impression and plan of care has been dictated by Mary Nevarez, Nurse Practitioner as directed. Dr. Eunice MD I have performed a history and examination and MDM of this patient, discussed the same with the dictator, and agree with the dictator's assessment and plan as written ,documented as a scribe. Based on total visit time, I have performed more than 50% of the visit. Objective - Vital Signs Vital signs: Vital Signs Temp 98.1 F 11/20/22 08:00 Pulse 81 11/20/22 08:00 Resp 18 11/20/22 08:00 BP 102/59 11/20/22 08:00 Pulse Ox 96 11/20/22 08:00 FiO2 Intake & Output 11/19/22 11/20/22 11/20/22 18:59 06:59 18:59 Intake Total 2437 240 240 Output Total 350 750 Balance 2087 -510 240 Weight 62.6 kg Intake: IV 1697 Oral 740 240 240 Output: Urine 300 750 Uretheral (Brenner) 100 Estimated Blood Loss 50 Other: Voiding Method Indwelling Catheter - Labs CBC & Chem 7: 11/19/22 13:55 11/19/22 13:55 Labs: Abnormal Lab Results - Last 24 Hours (Table) 11/19/22 11/19/22 Range/Units 13:55 13:55 RBC 3.65 L (3.80-5.40) m/uL Hct 33.6 L (34.0-46.0) % Neutrophils # (Manual) 8.54 H (1.3-7.7) k/uL Lymphocytes # (Manual) 0.58 L (1.0-4.8) k/uL Potassium 3.4 L (3.5-5.1) mmol/L Glucose 174 H (74-99) mg/dL
== END 2022-11-20 15:38 | disposition home health service (06) | DRG 39 ==
LOC: 2ORMAIN 05:53 → 3SCARD 10:47
PROVIDERS: ADMIT Surgery; ATTEND Surgery
PROC: 03UL0JZ Supplement Left Internal Carotid Artery with Synthetic Substitute, Open Approach (ICD-10-PCS; 2022-11-19)
PROC: 03CL0ZZ Extirpation of Matter from Left Internal Carotid Artery, Open Approach (ICD-10-PCS; principal; 2022-11-19 07:30)
DX: I65.22 Occlusion and stenosis of left carotid artery (principal); E78.5 Hyperlipidemia, unspecified; H40.9 Unspecified glaucoma; H35.30 Unspecified macular degeneration; K21.9 Gastro-esophageal reflux disease without esophagitis; I95.9 Hypotension, unspecified; G31.84 Mild cognitive impairment of uncertain or unknown etiology; I10 Essential (primary) hypertension; Z79.02 Long term (current) use of antithrombotics/antiplatelets; Z79.899 Other long term (current) drug therapy; Z86.73 Personal history of transient ischemic attack (TIA), and cerebral infarction without residual deficits; Z87.891 Personal history of nicotine dependence; Z90.710 Acquired absence of both cervix and uterus; Z90.49 Acquired absence of other specified parts of digestive tract; Z91.041 Radiographic dye allergy status
CPT/HCPCS: 80048; 85025; 86850; 86900; 86901; 88304

== ENCOUNTER → 2023-04-22 | Outpatient (CLI) | payer MEDICARE ==
[2023-04-22 15:29] LABS: ALT 18 U/L (8-44); AST 31 U/L (13-35); Chol/HDL Ratio 2.76 Ratio; LDL Cholesterol,Calculated 63.1 mg/dL (0.0-131.0)
== END | disposition home or self-care (01) ==
LOC: LABWHC1 09:25
PROVIDERS: ATTEND Internal Medicine Interventional Cardiology
DX: E78.2 Mixed hyperlipidemia (principal)
CPT/HCPCS: 36415; 80061; 84450; 84460

== ENCOUNTER 2023-05-18 16:54 | Inpatient (IN) | payer MEDICARE ==
--- NOTE | 2023-05-18 17:11 | ED ---
Dizziness HPI - General Chief Complaint: Dizziness Stated Complaint: Dizziness Time Seen by Provider: 05/18/23 16:57 Source: patient, EMS Mode of arrival: EMS Limitations: no limitations - History of Present Illness Initial Comments: 88-year-old female with a past medical history significant for left carotid stenosis status post endartectomy presented to the ED with a chief complaint of dizziness. Patient states that she was in the kitchen cooking when she all of a sudden felt flushed and dizzy describing it as feeling as if she is going to pass out. Patient states that she went and laid down which patient reports helped resolve her symptoms. Patient reports symptoms lasted for approximately 15 minutes. At this time, patient reports symptoms resolved. During symptoms, denied chest pain, shortness of breath, nausea, vomiting. Currently denies chest pain, shortness breath, abdominal pain, nausea, vomiting, changes in urinary habits, changes in bowel habits. No other complaints. - Related Data Home Medications Medication Instructions Recorded Confirmed Latanoprost [Xalatan 0.005%] 1 drop BOTH EYES HS 08/13/18 11/13/22 Omeprazole Magnesium [PriLOSEC OTC] 20 mg PO QAM 07/26/21 11/13/22 Zinc Gluconate [Zinc] 50 mg PO QAM 08/26/22 11/13/22 Ascorbic Acid [Vitamin C] 1,000 mg PO QAM 11/13/22 11/13/22 Cholecalciferol [Vitamin D3 (25 25 mcg PO QAM 11/13/22 11/13/22 Mcg = 1000 Iu)] Clopidogrel [Plavix] 75 mg PO QAM 11/13/22 11/13/22 Previous Rx's Medication Instructions Recorded Atorvastatin [Lipitor] 40 mg PO HS #30 tab 08/28/22 Acetaminophen Tab [Tylenol] 650 mg PO Q4HR PRN tab 11/20/22 Benzocaine/Menthol Lozeng [Cepacol 1 each MUCOUS MEM Q2HR PRN lozenge 11/20/22 lozenge] Mag Hydrox/Al Hydrox/Simeth 30 ml PO Q6HR PRN ml 11/20/22 [Maalox] Pseudoephedrine [Sudafed] 60 mg PO Q6HR PRN tab 11/20/22 lisinopriL [Prinivil] 10 mg PO DAILY 30 Days #30 tab 11/22/22 Allergies Allergy/AdvReac Type Severity Reaction Status Date / Time blue dye Allergy Rash/Hives Verified 11/19/22 06:15 Review of Systems ROS Statement: Those systems with pertinent positive or pertinent negative responses have been documented in the HPI. ROS Other: All systems not noted in ROS Statement are negative. Past Medical History Past Medical History: CVA/TIA, Eye Disorder, GERD/Reflux, Hyperlipidemia, Hype rtension, Memory Impairment, Syncope, Vascular Disorder Additional Past Medical History / Comment(s): Syncopy at times, bilateral macular degeneration, glaucoma. History of Any Multi-Drug Resistant Organisms: None Reported Past Surgical History: Cholecystectomy, Hysterectomy, Tonsillectomy Past Anesthesia/Blood Transfusion Reactions: No Reported Reaction Additional Past Anesthesia/Blood Transfusion Reaction / Comment(s): Pt has never received blood. Past Psychological History: No Psychological Hx Reported Smoking Status: Former smoker Past Alcohol Use History: None Reported Past Drug Use History: None Reported - Past Family History Mother History Unknown: Yes Additional Family Medical History / Comment(s): Mother when pt was 10 yrs old. Father History Unknown: Yes Additional Family Medical History / Comment(s): Father when pt was 14 yrs old General Exam Limitations: no limitations General appearance: alert, in no apparent distress Eye exam: Present: normal appearance Neck exam: Present: normal inspection Respiratory exam: Present: normal lung sounds bilaterally Cardiovascular Exam: Present: regular rate, normal rhythm GI/Abdominal exam: Present: soft Neurological exam: Present: alert, oriented X3, CN II-XII intact Skin exam: Present: warm, dry Course Vital Signs 05/18/23 05/18/23 16:59 22:16 Temperature 96.9 F L Pulse Rate 86 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 There is a ALLERGY noted to blue dye however no ALLERGY noted to iodine. However at this time family in the room and insisting patient has ALLERGY to iodine. Review of prior records show no prior premedication to CT with contrast however due to family insisting history of iodine ALLERGY patient premedicated prior to CT with 50 mg Benadryl IV be an 50 mg prednisone by mouth. 05/18/23 18:43 Medical Decision Making - Medical Decision Making Was pt. sent in by a medical professional or institution ([facility], SPOOL MAKER, urgent c are, hospital, or custodial...) When possible be specific @ -No Did you speak to anyone other than the patient for history (EMS, parent, family, police, friend...)? What history was obtained from this source @ -No Did you review nursing and triage notes (agree or disagree)? Why? @ -I reviewed and agree with nursing and triage notes Were old charts reviewed (outside hosp., previous admission, EMS record, old EKG, old radiological studies, urgent care reports/EKG's, custodial records)? Report findings @ -No old charts were reviewed Differential Diagnosis (chest pain, altered mental status, abdominal pain women, abdominal pain men, vaginal bleeding, weakness, fever, dyspnea, syncope, headache, dizziness, GI bleed, back pain, seizure, CVA, palpatations, mental health, musculoskeletal)? @ -Differential Dizziness: Benign paroxysmal positional Vertigo, Menieres disease, otitis media, acoustic neuroma, vertebrobasilar insufficiency, cerebellar stroke, encephalitis, hypovolemic, arrhythmia, coronary artery syndrome, anemia, this is not meant to be an all-inclusive list EKG interpreted by me (3pts min.). @ -As above X-rays interpreted by me (1pt min.). @ -None done CT interpreted by me (1pt min.). @ -CT of the brain without contrast interpreted by me showing no acute process. CTA neck And by me showing no evidence of acute process. U/S interpreted by me (1pt. min.). @ -None done What testing was considered but not performed or refused? (CT, X-rays, U/S, labs)? Why? @ -None What meds were considered but not given or refused? Why? @ -None Did you discuss the management of the patient with other professionals (professionals i.e. [facility], SPOOL MAKER, lab, RT, psych nurse, social contact worker, press worker helper, teacher, guest services officer, case folder)? Give summary @ -Spoke to John of [facility], who accepted admission Was smoking cessation discussed for >3mins.? @ -No Was critical care preformed (if so, how long)? @ -No Were there social determinants of health that impacted care today? How? (Homelessness, low income, unemployed, alcoholism, drug addiction, transpor tation, low edu. Level, literacy, decrease access to med. care, [place] [facility], rehab)? @ -No Was there de-escalation of care discussed even if they declined (Discuss DNR or withdrawal of care, Hospice)? DNR status @ -No What co-morbidities impacted this encounter? (DM, HTN, Smoking, COPD, CAD, Cancer, CVA, ARF, Chemo, Hep., AIDS, mental health diagnosis, sleep apnea, morbid obesity)? @ -None Was patient admitted / discharged? Hospital course, mention meds given and route, prescriptions, significant lab abnormalities, going to OR and other pertinent info. @ -Admission A 88-year-old female presenting to the ED with episode of dizziness lasting for 15 minutes. At this time, imaging studies unremarkable. Laboratory studies also largely unremarkable. EKG did show new shortened MD interval compared to prior EKG however no other abnormalities noted. Patient did have positive orthostatics performed by me with patient in the 170s systolic while sitting and dropped to the 150s when standing. Patient was offered admission for observation stay to see cardiology which patient family are in agreement with. Undiagnosed new problem with uncertain prognosis? @ -No Drug Therapy requiring intensive monitoring for toxicity (Heparin, Nitro, Insulin, Cardizem)? @ -No Were any procedures done? @ -No Diagnosis/symptom? @ -Dizziness Acute, or Chronic, or Acute on Chronic? @ -Acute Uncomplicated (without systemic symptoms) or Complicated (systemic symptoms)? @ -Uncomplicated Side effects of treatment? @ -No Exacerbation, Progression, or Severe Exacerbation? @ -No Poses a threat to life or bodily function? How? (Chest pain, [place], [place], pneumonia, PE, COPD, DKA, ARF, appy, cholecystitis, CVA, Diverticulitis, Homicidal, Suicidal, threat to staff... and all critical care pts) @ -No - Lab Data Result diagrams: 05/18/23 17:19 05/18/23 17:19 Lab Results 05/18/23 05/18/23 05/18/23 Range/Units 17:19 17:19 17:19 WBC 8.1 (3.8-10.6) k/uL RBC 4.48 (3.80-5.40) m/uL Hgb 14.0 (11.4-16.0) gm/dL Hct 41.0 (34.0-46.0) % MCV 91.4 (80.0-100.0) fL MCH 31.2 (25.0-35.0) pg MCHC 34.1 (31.0-37.0) g/dL RDW 13.1 (11.5-15.5) % Plt Count 364 (150-450) k/uL MPV 8.1 Neutrophils % (Manual) 65 % Lymphocytes % (Manual) 30 % Monocytes % (Manual) 3 % Eosinophils % (Manual) 2 % Neutrophils # (Manual) 5.27 (1.3-7.7) k/uL Lymphocytes # (Manual) 2.43 (1.0-4.8) k/uL Monocytes # (Manual) 0.24 (0-1.0) k/uL Eosinophils # (Manual) 0.16 (0-0.7) k/uL Nucleated RBCs 0 (0-0) /100 WBC Manual Slide Review Performed RBC Morphology Normal PT (10.0-12.5) sec INR (<1.2) APTT (22.0-30.0) sec Sodium 140 (137-145) mmol/L Potassium 3.8 (3.5-5.1) mmol/L Chloride 100 (98-107) mmol/L Carbon Dioxide 27 (22-30) mmol/L Anion Gap 13 mmol/L BUN 16 (7-17) mg/dL Creatinine 0.82 (0.52-1.04) mg/dL Est GFR (CKD-EPI)AfAm 75 (>60 ml/min/1.73 sqM) Est GFR (CKD-EPI)NonAf 65 (>60 ml/min/1.73 sqM) Glucose 128 H (74-99) mg/dL Plasma Lactic Acid Harris 1.0 (0.7-2.0) mmol/L Calcium 9.5 (8.4-10.2) mg/dL Phosphorus 4.0 (2.5-4.5) mg/dL Magnesium 1.4 L (1.6-2.3) mg/dL Total Bilirubin 0.9 (0.2-1.3) mg/dL AST 31 (14-36) U/L ALT 19 (4-34) U/L Alkaline Phosphatase 91 (38-126) U/L Troponin I (0.000-0.034) ng/mL Total Protein 7.7 (6.3-8.2) g/dL Albumin 4.6 (3.5-5.0) g/dL 05/18/23 05/18/23 Range/Units 17:19 17:19 WBC (3.8-10.6) k/uL RBC (3.80-5.40) m/uL Hgb (11.4-16.0) gm/dL Hct (34.0-46.0) % MCV (80.0-100.0) fL MCH (25.0-35.0) pg MCHC (31.0-37.0) g/dL RDW (11.5-15.5) % Plt Count (150-450) k/uL MPV Neutrophils % (Manual) % Lymphocytes % (Manual) % Monocytes % (Manual) % Eosinophils % (Manual) % Neutrophils # (Manual) (1.3-7.7) k/uL Lymphocytes # (Manual) (1.0-4.8) k/uL Monocytes # (Manual) (0-1.0) k/uL Eosinophils # (Manual) (0-0.7) k/uL Nucleated RBCs (0-0) /100 WBC Manual Slide Review RBC Morphology PT 10.8 (10.0-12.5) sec INR 1.0 (<1.2) APTT 22.2 (22.0-30.0) sec Sodium (137-145) mmol/L Potassium (3.5-5.1) mmol/L Chloride (98-107) mmol/L Carbon Dioxide (22-30) mmol/L Anion Gap mmol/L BUN (7-17) mg/dL Creatinine (0.52-1.04) mg/dL Est GFR (CKD-EPI)AfAm (>60 ml/min/1.73 sqM) Est GFR (CKD-EPI)NonAf (>60 ml/min/1.73 sqM) Glucose (74-99) mg/dL Plasma Lactic Acid Harris (0.7-2.0) mmol/L Calcium (8.4-10.2) mg/dL Phosphorus (2.5-4.5) mg/dL Magnesium (1.6-2.3) mg/dL Total Bilirubin (0.2-1.3) mg/dL AST (14-36) U/L ALT (4-34) U/L Alkaline Phosphatase (38-126) U/L Troponin I <0.012 (0.000-0.034) ng/mL Total Protein (6.3-8.2) g/dL Albumin (3.5-5.0) g/dL - EKG Data EKG Comments: EKG shows a sinus rhythm with a short MD interval and 100 ms with nonspecific ch anges compared to prior. QRS 101, QT/QTc 370/112. Disposition Clinical Impression: Dizziness Disposition: ADMITTED IP TO THIS HOSP Condition: Good Referrals: John Fernandez MD [Primary Care Provider] - 1-2 days
[2023-05-18] MEDS ORDERED: SODIUM CHLORIDE 0.9% 1,000 ML IV STA (17:14)
[2023-05-18 17:47] LABS: MCH 31.2 pg (25.0-35.0); MCHC 34.1 g/dL (31.0-37.0); MCV 91.4 fL (80.0-100.0); Mean Platelet Volume 8.1; Partial Thromboplastin Time 22.2 sec (22.0-30.0); Platelet Count 364 k/uL (150-450); Prothrombin Time 10.8 sec (10.0-12.5); RBC 4.48 m/uL (3.80-5.40); RDW 13.1 % (11.5-15.5); WBC 8.1 k/uL (3.8-10.6)
[2023-05-18 17:49] LABS: ALT 19 U/L (4-34); AST 31 U/L (14-36); African American GFR (CKD) 75 (>60 ml/min/1.73 sqM); Albumin 4.6 g/dL (3.5-5.0); Alkaline Phosphatase 91 U/L (38-126); Anion Gap 13 mmol/L; Blood Urea Nitrogen 16 mg/dL (7-17); Calcium 9.5 mg/dL (8.4-10.2); Carbon Dioxide 27 mmol/L (22-30); Chloride 100 mmol/L (98-107); Glucose 128 mg/dL (74-99); Magnesium 1.4 mg/dL (1.6-2.3); Non-African American GFR(CKD) 65 (>60 ml/min/1.73 sqM); Potassium 3.8 mmol/L (3.5-5.1); Sodium 140 mmol/L (137-145); Total Bilirubin 0.9 mg/dL (0.2-1.3); Total Protein 7.7 g/dL (6.3-8.2)
[2023-05-18] MEDS ORDERED: diphenhydrAMINE 50 MG/ML 1 ML VIAL IVP STA (18:11)
[2023-05-18] MEDS ORDERED: predniSONE 50 MG TAB PO STA (18:12)
[2023-05-18 18:28] LABS: Eosinophils # (M) 0.16 k/uL (0-0.7); Lymphocytes # (M) 2.43 k/uL (1.0-4.8); Monocytes # (M) 0.24 k/uL (0-1.0); Neutrophils # (M) 5.27 k/uL (1.3-7.7); Neutrophils % (M) 65 %; Nucleated Red Blood Cells 0 /100 WBC (0-0); Total Cells Counted 100
[2023-05-18 18:29] LABS: RBC Morphology Normal
--- NOTE | 2023-05-18 19:48 | CT ---
EXAMINATION TYPE: CT brain wo con CT DLP: Combined DLP of 1459.1 mGycm, Automated exposure control for dose reduction was used. DATE OF EXAM: 05/18/2023 7:27 PM COMPARISON: 24/09/2022.. CLINICAL INDICATION:Female, 88 years old with history of dizziness, Dizziness, near syncopal episode. TECHNIQUE: Brain: Axial CT images of the brain were obtained with coronal and sagittal reformats created and rev iewed. Contrast used: None. Oral contrast used: None. FINDINGS: Brain: Extra-axial spaces: No abnormal extra-axial fluid collections. Ventricular system: Within normal limits Cerebral parenchyma: No acute intraparenchymal hemorrhage or mass effect. The matamoros-white junction is well differentiated. Scattered hypoattenuating areas are seen within the white matter. Cerebellum: Unremarkable. Mass effect: No evidence of midline shift. Intracranial vasculature: Atherosclerotic calcifications of the intracranial vessels. Soft tissues: Normal. Calvarium/osseous structures: No depressed skull fracture. Paranasal sinuses and mastoid air cells: Mild scattered paranasal sinus disease. Visualized orbits: Bilateral aphakia IMPRESSION: 1. No acute intracranial process. 2. Nonspecific white matter changes, likely related to chronic ischemic small vessel disease
--- NOTE | 2023-05-18 19:55 | CT ---
EXAMINATION TYPE: CT angio neck DATE OF EXAM: 05/18/2023 7:36 PM CLINICAL INDICATION:Female, 88 years old with history of dizziness, hx left carotid stenosis; COMPARISON: CTA 09/18/2022. TECHNIQUE: Axially acquired helical CT Angiogram of the Neck was obtained with and without contrast u tilizing 75 mL of Isovue-370 administered intravenously. Axial images are supplemented with coronal a nd sagittal MIP reconstructions. 3D reconstructions were also performed and were post-processed at an independent workstation. Estimated carotid stenosis was calculated using the NASCET criteria. CT DLP: Combined DLP of 1459.1 mGycm, Automated exposure control for dose reduction was used. Contrast used:100 ml mL of Isovue 370 with IV Contrast, Oral contrast used: , None. FINDINGS: CTA NECK: Right Carotid System: The right common carotid origin is patent. The common carotid is patent throughout its course. Simila r calcified atherosclerotic plaque involving the carotid bulb is present creating 60% stenosis of the origin of the internal carotid artery. The external carotid artery is patent. Left Carotid System: The origin of the left common carotid artery is patent. The common carotid is patent throughout its c ourse. The internal carotid artery is patent throughout its course. The carotid bulb and trace improv ed patency in the interval. Stable moderate stenosis of the origin of the bilateral vertebral artery secondary to calcified plaqu e. Upper thorax: Unremarkable. IMPRESSION: 1. No evidence of cervical vascular occlusion. 2. Improved patency of the left internal carotid artery. 3. Stable moderate stenosis of the bilateral vertebral artery origins.
[2023-05-18] MEDS ORDERED: ONDANSETRON 4 MG/2 ML VIAL IVP PRN (22:28)
[2023-05-18] MEDS ORDERED: ACETAMINOPHEN TAB 325 MG TAB PO PRN (22:28)
[2023-05-18] MEDS ORDERED: NALOXONE 0.4 MG/ML 1 ML VIAL IV PRN (22:28)
[2023-05-18] MEDS ORDERED: HYDROmorphone 1 MG/ML 1 ML SYRINGE IVP PRN (22:28)
[2023-05-18] MEDS ORDERED: hydrALAZINE HCL 20 MG/ML 1 ML VIAL IVP STA (22:31)
[2023-05-18] MEDS: SODIUM CHLORIDE 0.9% 1,000 ML IV SCH (22:38)
[2023-05-19] MEDS: CLOPIDOGREL 75 MG TAB PO SCH (11:22)
[2023-05-19] MEDS: SODIUM CHLORIDE 0.9% 1,000 ML IV SCH (11:23)
--- NOTE | 2023-05-19 12:08 | P.CRDCN ---
History of Present Illness Consult date: 05/19/23 History of present illness: HISTORY OF PRESENTING ILLNESS 88-year-old female with past medical history of left carotid artery stenosis status post endarterectomy. Residual 60% stenosis in right ICA and moderate disease in bilateral vertebral artery. She reports that she was eating food when she felt flushed and dizzy and felt like she might pass out. She did not end up passing out. She denied having any falls. Patient reported that she went to lay down which resolved her symptoms. Her symptoms lasted for 15 minutes. It was not associated with chest pain chest pressure palpitations or shortness of breath. She has not been feeling poorly lately. She denies any cough, fever or chills. She does report having diarrhea that day. ECG does not show any significant signs of ischemia REVIEW OF SYSTEMS 14 point review of system is negative except what is mentioned above in HPI. PHYSICAL EXAMINATION Vital signs reviewed. Head: Normocephalic. Eyes: Sclerae nonicteric. Neck: Brisk carotid upstroke, no jugular venous distention. Lungs: Clear to auscultation. Heart: Regular rate and rhythm, S1-S2, no S3, no murmur or rub. Abdomen: Soft nontender, positive bowel sounds no organomegaly. Extremities: No edema, intact distal pulses. Neuro: Alert, oritented, no focal deficits ASSESSMENT Dizziness, and presyncope most likely related to dehdyration from diarrhea Mild elevation of troponin with flat pattern. Not due to ACS Prior history of dizziness status post left carotid endarterectomy Residual right ICA and vertebral disease moderate PLAN Obtain an updated echocardiogram Continue current cardiac medications which includes Plavix, atorvastatin Recommend neurological evaluation to make sure there are no TIA Monitor for next 24 hours on telemetry. Notify if any arrhythmias Past Medical History Past Medical History: CVA/TIA, Eye Disorder, GERD/Reflux, Hyperlipidemia, Hypertension, Memory Impairment, Syncope, Vascular Disorder Additional Past Medical History / Comment(s): Syncopy at times, bilateral macular degeneration, glaucoma. History of Any Multi-Drug Resistant Organisms: None Reported Past Surgical History: Cholecystectomy, Hysterectomy, Tonsillectomy Past Anesthesia/Blood Transfusion Reactions: No Reported Reaction Additional Past Anesthesia/Blood Transfusion Reaction / Comment(s): Pt has never received blood. Past Psychological History: No Psychological Hx Reported Smoking Status: Former smoker Past Alcohol Use History: None Reported Past Drug Use History: None Reported - Past Family History Mother History Unknown: Yes Additional Family Medical History / Comment(s): Mother when pt was 10 yrs old. Father History Unknown: Yes Additional Family Medical History / Comment(s): Father when pt was 14 yrs old Medications and Allergies Home Medications Medication Instructions Recorded Confirmed Type Latanoprost [Xalatan 0.005%] 1 drop BOTH EYES HS 08/13/18 05/19/23 History Omeprazole Magnesium [PriLOSEC OTC] 20 mg PO DAILY 07/26/21 05/19/23 History Zinc Gluconate [Zinc] 50 mg PO DAILY 08/26/22 05/19/23 History Ascorbic Acid [Vitamin C] 1,000 mg PO DAILY 11/13/22 05/19/23 History Cholecalciferol [Vitamin D3 (25 25 mcg PO DAILY 11/13/22 05/19/23 History Mcg = 1000 Iu)] Clopidogrel [Plavix] 75 mg PO DAILY 11/13/22 05/19/23 History Acetaminophen Tab [Tylenol] 650 mg PO Q4HR PRN 05/19/23 05/19/23 History Atorvastatin [Lipitor] 40 mg PO DAILY 05/19/23 05/19/23 History Lisinopril-Hctz 10-12.5 mg 1 tab PO DAILY 05/19/23 05/19/23 History [Zestoretic 10-12.5] Allergies Allergy/AdvReac Type Severity Reaction Status Date / Time blue dye Allergy Rash/Hives Verified 05/19/23 10:40 Physical Exam Vitals: Vital Signs Temp Pulse Pulse Resp BP BP BP 05/19/23 11:05 98 18 05/19/23 08:08 99 18 144/70 05/19/23 05:41 83 17 112/56 05/19/23 04:14 82 17 112/55 05/18/23 22:16 85 18 197/89 187/92 05/18/23 16:59 96.9 F L 86 18 123/101 BP Pulse Ox 05/19/23 11:05 96 05/19/23 08:08 95 05/19/23 05:41 93 L 05/19/23 04:14 92 L 05/18/23 22:16 190/84 97 05/18/23 16:59 97 Intake and Output 05/18/23 05/19/23 05/19/23 22:59 06:59 14:59 Other: Weight 60.328 kg Results 05/18/23 17:19 05/18/23 17:19 Cardiac Enzymes 05/18/23 05/18/23 05/18/23 Range/Units 17:19 17:19 23:58 AST 31 (14-36) U/L Troponin I <0.012 <0.012 (0.000-0.034) ng/mL 05/19/23 05/19/23 Range/Units 03:19 10:03 AST (14-36) U/L Troponin I 0.035 H* 0.336 H* (0.000-0.034) ng/mL Coagulation 05/18/23 Range/Units 17:19 PT 10.8 (10.0-12.5) sec APTT 22.2 (22.0-30.0) sec CBC 05/18/23 Range/Units 17:19 WBC 8.1 (3.8-10.6) k/uL RBC 4.48 (3.80-5.40) m/uL Hgb 14.0 (11.4-16.0) gm/dL Hct 41.0 (34.0-46.0) % Plt Count 364 (150-450) k/uL Comprehensive Metabolic Panel 05/18/23 Range/Units 17:19 Sodium 140 (137-145) mmol/L Potassium 3.8 (3.5-5.1) mmol/L Chloride 100 (98-107) mmol/L Carbon Dioxide 27 (22-30) mmol/L BUN 16 (7-17) mg/dL Creatinine 0.82 (0.52-1.04) mg/dL Glucose 128 H (74-99) mg/dL Calcium 9.5 (8.4-10.2) mg/dL AST 31 (14-36) U/L ALT 19 (4-34) U/L Alkaline Phosphatase 91 (38-126) U/L Total Protein 7.7 (6.3-8.2) g/dL Albumin 4.6 (3.5-5.0) g/dL Current Medications Generic Name Dose Route Start Last Admin Trade Name Freq PRN Reason Stop Dose Admin Acetaminophen 650 mg 05/18/23 22:28 Acetaminophen Tab 325 Mg Tab PO Q6HR PRN Mild Pain or Fever > 100.5 Ascorbic Acid 1,000 mg 05/20/23 09:00 Ascorbic Acid 500 Mg Tab PO DAILY [facility] Atorvastatin Calcium 40 mg 05/20/23 09:00 Atorvastatin 40 Mg Tab PO DAILY [facility] Cholecalciferol 25 mcg 05/20/23 09:00 Cholecalciferol 25 Mcg (1000 Iu) Tablet PO DAILY [facility] Clopidogrel Bisulfate 75 mg 05/19/23 11:00 05/19/23 11:22 Clopidogrel 75 Mg Tab PO 75 mg DAILY RAMON Administration Hydromorphone HCl 1 mg 05/18/23 22:28 Hydromorphone 1 Mg/Ml 1 Ml Syringe IVP Q3HR PRN Severe Pain (Scale 7 to 10) Sodium Chloride 1,000 mls @ 75 mls/hr 05/18/23 22:30 05/19/23 11:23 Saline 0.9% IV 75 mls/hr .[id number] RAMON Administration Latanoprost 1 drops 05/19/23 21:00 Latanoprost 0.005% Ophth Drops 2.5 Ml Btl BOTH EYES HS RAMON Naloxone HCl 0.2 mg 05/18/23 22:28 Naloxone 0.4 Mg/Ml 1 Ml Vial IV Q2M PRN Opioid Reversal Ondansetron HCl 4 mg 05/18/23 22:28 Ondansetron 4 Mg/2 Ml Vial IVP Q8HR PRN Nausea And Vomiting Pantoprazole Sodium 40 mg 05/20/23 07:30 Pantoprazole 40 Mg Tablet PO AC-BRKFST [facility] Zinc Sulfate 220 mg 05/20/23 09:00 Zinc Sulfate 220 Mg Cap PO DAILY [facility] Intake and Output 05/18/23 05/19/23 05/19/23 22:59 06:59 14:59 Other: Weight 60.328 kg 05/18/23 17:19 05/18/23 17:19
[2023-05-19 16:45] LABS: Appearance,Urine Clear (Clear); Bilirubin,Urine Negative (Negative); Blood,Urine Negative (Negative); Color,Urine Colorless; Glucose,Urine (UA) Negative (Negative); Ketones,Urine Negative (Negative); Leukocyte Esterase,Urine Negative (Negative); Nitrite,Urine Negative (Negative); PH, Urine 6.5 (5.0-8.0); Protein,Urine Negative (Negative); Urobilinogen,Urine <2.0 mg/dL (<2.0)
--- NOTE | 2023-05-19 17:46 | P.HPIM ---
History of Present Illness H&P Date: 05/19/23 Chief Complaint: Dizziness 88-year-old female with a past medical history significant for left carotid stenosis status post endartectomy presented to the ED with a chief complaint of dizziness. Patient states that she was in the kitchen cooking when she all of a sudden felt flushed and dizzy describing it as feeling as if she is going to pass out. Patient states that she went and laid down which patient reports helped resolve her symptoms. Patient reports symptoms lasted for approximately 15 minutes. At this time, patient reports symptoms resolved. During symptoms, denied chest pain, shortness of breath, nausea, vomiting. Currently denies chest pain, shortness breath, abdominal pain, nausea, vomiting, changes in urinary habits, changes in bowel habits. No other complaints. -- imaging studies unremarkable. Laboratory studies also largely unremarkable. EKG did show new shortened DE interval compared to prior EKG however no other abnormalities noted. Patient did have positive orthostatics performed by me with patient in the 170s systolic while sitting and dropped to the 150s when standing. Patient was offered admission for observation stay to see cardiology Review of Systems REVIEW OF SYSTEMS: CONSTITUTIONAL: No fever, no malaise, no fatigue. HEENT: No recent visual problems or hearing problems. Denied any sore throat. CARDIOVASCULAR: No chest pain, orthopnea, PND, no palpitations, no syncope. PULMONARY: No shortness of breath, no cough, no hemoptysis. GASTROINTESTINAL: No diarrhea, no nausea, no vomiting, no abdominal pain. NEUROLOGICAL: No headaches, no weakness, no numbness. HEMATOLOGICAL: Denies any bleeding or petechiae. GENITOURINARY: Denies any burning micturition, frequency, or urgency. MUSCULOSKELETAL/RHEUMATOLOGICAL: Denies any joint pain, swelling, or any muscle pain. ENDOCRINE: Denies any polyuria or polydipsia. The rest of the 14-point review of systems is negative. Past Medical History Past Medical History: CVA/TIA, Eye Disorder, GERD/Reflux, Hyperlipidemia, Hypertension, Memory Impairment, Syncope, Vascular Disorder Additional Past Medical History / Comment(s): Syncopy at times, bilateral macular degeneration, glaucoma. History of Any Multi-Drug Resistant Organisms: None Reported Past Surgical History: Cholecystectomy, Hysterectomy, Tonsillectomy Past Anesthesia/Blood Transfusion Reactions: No Reported Reaction Additional Past Anesthesia/Blood Transfusion Reaction / Comment(s): Pt has never received blood. Past Psychological History: No Psychological Hx Reported Smoking Status: Former smoker Past Alcohol Use History: None Reported Past Drug Use History: None Reported - Past Family History Mother History Unknown: Yes Additional Family Medical History / Comment(s): Mother when pt was 10 yrs old. Father History Unknown: Yes Additional Family Medical History / Comment(s): Father when pt was 14 yrs old Medications and Allergies Home Medications Medication Instructions Recorded Confirmed Type Latanoprost [Xalatan 0.005%] 1 drop BOTH EYES HS 08/13/18 05/19/23 History Omeprazole Magnesium [PriLOSEC OTC] 20 mg PO DAILY 07/26/21 05/19/23 History Zinc Gluconate [Zinc] 50 mg PO DAILY 08/26/22 05/19/23 History Ascorbic Acid [Vitamin C] 1,000 mg PO DAILY 11/13/22 05/19/23 History Cholecalciferol [Vitamin D3 (25 25 mcg PO DAILY 11/13/22 05/19/23 History Mcg = 1000 Iu)] Clopidogrel [Plavix] 75 mg PO DAILY 11/13/22 05/19/23 History Acetaminophen Tab [Tylenol] 650 mg PO Q4HR PRN 05/19/23 05/19/23 History Atorvastatin [Lipitor] 40 mg PO DAILY 05/19/23 05/19/23 History Lisinopril-Hctz 10-12.5 mg 1 tab PO DAILY 05/19/23 05/19/23 History [Zestoretic 10-12.5] Allergies Allergy/AdvReac Type Severity Reaction Status Date / Time blue dye Allergy Rash/Hives Verified 05/19/23 10:40 Physical Exam Vitals: Vital Signs Temp Pulse Pulse Resp BP BP BP 05/19/23 08:08 99 18 144/70 05/19/23 05:41 83 17 112/56 05/19/23 04:14 82 17 112/55 05/18/23 22:16 85 18 197/89 187/92 05/18/23 16:59 96.9 F L 86 18 123/101 BP Pulse Ox 05/19/23 08:08 95 05/19/23 05:41 93 L 05/19/23 04:14 92 L 05/18/23 22:16 190/84 97 05/18/23 16:59 97 Intake and Output 10/14/23 10/15/23 10/15/23 22:59 06:59 14:59 Other: Weight 60.328 kg PHYSICAL EXAMINATION: GENERAL: The patient is alert and oriented x3, not in any acute distress. Well developed, well nourished. HEENT: Pupils are round and equally reacting to light. EOMI. No scleral icterus. No conjunctival pallor. Normocephalic, atraumatic. No pharyngeal erythema. No thyromegaly. CARDIOVASCULAR: S1 and S2 present. No murmurs, rubs, or gallops. PULMONARY: Chest is clear to auscultation, no wheezing or crackles. ABDOMEN: Soft, nontender, nondistended, normoactive bowel sounds. No palpable organomegaly. MUSCULOSKELETAL: No joint swelling or deformity. EXTREMITIES: No cyanosis, clubbing, or pedal edema. NEUROLOGICAL: Gross neurological examination did not reveal any focal deficits. SKIN: No rashes. Results CBC & Chem 7: 05/18/23 17:19 05/18/23 17:19 Labs: Abnormal Lab Results - Last 24 Hours (Table) 05/18/23 05/19/23 05/19/23 Range/Units 17:19 03:19 10:03 Glucose 128 H (74-99) mg/dL Magnesium 1.4 L (1.6-2.3) mg/dL Troponin I 0.035 H* 0.336 H* (0.000-0.034) ng/mL Assessment and Plan Assessment: 1. Dizziness/presyncope - Likely related to dehydration caused by diarrhea - We will admit to telemetry and monitor EKG and trend troponin - Consult cardiology; recommendations are appreciated; 2-D echo is recommended 2. Mild elevation of troponin; likely not related to acute coronary syndrome - We will trend troponin and await further recommendations from cardiology - We will continue with home dose of aspirin, Plavix and atorvastatin 3. Hypertension; lisinoprilhydrochlorothiazide at 1012 0.5 mg daily; we will hold till blood pressure stable 4. Hyperlipidemia; Lipitor 40 mg daily 5. History of TIA/CVA; patient remains on Plavix and Lipitor 6. Gastroesophageal reflux disease; continue PPI DVT prophylaxis; SCDs CODE STATUS; full code
[2023-05-19] MEDS: LATANOPROST 0.005% OPHTH DROPS 2.5 ML BTL BOTH EYES SCH (20:18)
[2023-05-20] MEDS: SODIUM CHLORIDE 0.9% 1,000 ML IV SCH ×2 (06:58→17:14)
[2023-05-20] MEDS: PANTOPRAZOLE 40 MG TABLET PO SCH (06:59)
[2023-05-20] MEDS: ATORVASTATIN 40 MG TAB PO SCH (08:34)
[2023-05-20] MEDS: ZINC SULFATE 220 MG CAP PO SCH (08:34)
[2023-05-20] MEDS: ASCORBIC ACID 500 MG TAB PO SCH (08:34)
[2023-05-20] MEDS: CLOPIDOGREL 75 MG TAB PO SCH (08:34)
[2023-05-20] MEDS: CHOLECALCIFEROL 25 MCG (1000 IU) TABLET PO SCH (08:34)
[2023-05-20] MEDS ORDERED: LISINOPRIL-HCTZ 10-12.5 MG 1 EACH TAB PO SCH (09:30)
[2023-05-20] MEDS: LISINOPRIL-HCTZ 20-12.5 MG 1 EACH TAB PO SCH (10:09)
[2023-05-20 10:45] LABS: HCT 40.4 % (34.0-46.0); HGB 13.2 gm/dL (11.4-16.0); MCH 30.8 pg (25.0-35.0); MCHC 32.7 g/dL (31.0-37.0); MCV 94.2 fL (80.0-100.0); Platelet Count 305 k/uL (150-450); RBC 4.29 m/uL (3.80-5.40); RDW 13.2 % (11.5-15.5); WBC 7.5 k/uL (3.8-10.6)
[2023-05-20 11:01] LABS: African American GFR (CKD) >90 (>60 ml/min/1.73 sqM); Anion Gap 12 mmol/L; Blood Urea Nitrogen 15 mg/dL (7-17); Calcium 9.4 mg/dL (8.4-10.2); Carbon Dioxide 25 mmol/L (22-30); Chloride 104 mmol/L (98-107); Glucose 178 mg/dL (74-99); Non-African American GFR(CKD) 79 (>60 ml/min/1.73 sqM); Potassium 3.8 mmol/L (3.5-5.1); Sodium 141 mmol/L (137-145)
--- NOTE | 2023-05-20 14:09 | P.PN ---
Subjective HISTORY OF PRESENT ILLNESS: This is an 88-year-old female who was admitted to the hospital secondary to dizziness. Patient denies having a syncopal episode. Patient examined this morning at the bedside. Patient denies chest pain or pressure. She denies shortness of breath. She currently denies dizziness or lightheadedness. Patient's blood pressure is elevated this morning with a systolic in the 180s. PHYSICAL EXAM: VITAL SIGNS: Reviewed. GENERAL: Well-developed in no acute distress. NECK: Supple. No JVD or thyromegaly LUNGS: Respirations even and unlabored. Lungs essentially clear to auscultation bilaterally. HEART: Regular rate and rhythm. S1 and S2 heard. EXTREMITIES: Normal range of motion. No clubbing or cyanosis. Peripheral pulses intact. No lower extremity edema ASSESSMENT: Dizziness with presyncope Hypertension, uncontrolled Abnormal troponins, flat, not suggestive of acute coronary syndrome History of carotid stenosis with left carotid endarterectomy PLAN: 2-D echo has been ordered. Await results Continue telemetry monitoring Resume patient's home medication of lisinopril-hydrochlorothiazide. Increase dose of lisinopril to 20 mg for optimal blood pressure control Continue to monitor blood pressure Further recommendations pending patient's course Nurse practitioner note has been reviewed by physician. Signing provider agrees with the documented findings, assessment, and plan of care. Objective - Vital Signs Vital signs: Vital Signs Temp 98.1 F 05/20/23 11:25 Pulse 88 05/20/23 11:25 Resp 16 05/20/23 11:25 BP 180/81 05/20/23 13:38 Pulse Ox 95 05/20/23 11:25 FiO2 Intake & Output 05/19/23 05/20/23 05/20/23 18:59 06:59 18:59 Weight 60.328 kg Other: Voiding Method Toilet Toilet # Voids 1 - Labs CBC & Chem 7: 05/20/23 09:38 05/20/23 09:38 Labs: Abnormal Lab Results - Last 24 Hours (Table) 05/20/23 Range/Units 09:38 Glucose 178 H (74-99) mg/dL
[2023-05-20] MEDS ORDERED: HALOPERIDOL LACTATE 5 MG/ML 1 ML VIAL IM STA (15:12)
--- NOTE | 2023-05-20 15:14 | P.PN ---
Subjective Progress Note Date: 05/20/23 This is an 88 year old female admitted for dizziness and lightheadedness. Patient had left carotid endartectomy completed 6 months ago. She is complaining of sore neck on the left side states it feels a bit swollen. On assessment there is no JVD she has +2 carotid pulse bilaterally no bruit or thrill detected. Blood pressure is elevated today in the 180s patient had not gotten her combination BP pill yet. She was resumed on medication and orthostatics are negative she has been up in the torres ambulating and no further reports of dizziness. Review of Systems Constitutional: Denied any fatigue denied any fever. Cardio vascular: denied any chest pain, palpitations Gastrointestinal: denied any nausea, vomiting, diarrhea Pulmonary: Denied any shortness of breath cough Neurologic denied any new focal deficits All inpatient medications were reviewed and appropriate changes in these medications as dictated in the interval history and assessment and plan PHYSICAL EXAMINATION: GENERAL: The patient is alert and oriented x3, not in any acute distress. Well developed, well nourished. HEENT: Pupils are round and equally reacting to light. EOMI. No scleral icterus. No conjunctival pallor. Normocephalic, atraumatic. No pharyngeal erythema. No thyromegaly. CARDIOVASCULAR: S1 and S2 present. No murmurs, rubs, or gallops. PULMONARY: Chest is clear to auscultation, no wheezing or crackles. ABDOMEN: Soft, nontender, nondistended, normoactive bowel sounds. No palpable organomegaly. MUSCULOSKELETAL: No joint swelling or deformity. EXTREMITIES: No cyanosis, clubbing, or pedal edema. NEUROLOGICAL: Gross neurological examination did not reveal any focal deficits. SKIN: No rashes. Assessment Dizziness/presyncope, Likely related to dehydration caused by diarrhea Mild elevation of troponin; likely not related to acute coronary syndrome Carotid artery disease status post left carotid endartectomy Hypertension Hyperlipidemia History of TIA/CVA Gastroesophageal reflux disease DVT prophylaxis; SCDs CODE STATUS; full code Plan BP medication has been resumed, echocardiogram pending further recommendations forthcoming Patient has ambulated around the room and hallway with no further reports of dizziness Patient will be monitored overnight Possible DC home tomorrow. The impression and plan of care has been dictated by Beverley Roldan, Nurse Practitioner as directed. Dr. Eunice MD I have performed a history and physical examination and medical decision making of this patient, discussed the same with the dictator, and agree with the dictators assessment and plan as written, documented as a scribe. Based on total visit time, I have performed more than 50% of this visit. Objective - Vital Signs Vital signs: Vital Signs Temp 98.1 F 05/20/23 11:25 Pulse 88 05/20/23 11:25 Resp 16 05/20/23 11:25 BP 180/81 05/20/23 13:38 Pulse Ox 95 05/20/23 11:25 FiO2 Intake & Output 05/19/23 05/20/23 05/20/23 18:59 06:59 18:59 Output Total 1 Balance -1 Weight 60.328 kg Output: Stool 1 Other: Voiding Method Toilet Toilet # Voids 1 - Labs CBC & Chem 7: 05/20/23 09:38 05/20/23 09:38 Labs: Abnormal Lab Results - Last 24 Hours (Table) 05/20/23 Range/Units 09:38 Glucose 178 H (74-99) mg/dL Assessment and Plan Time with Patient: Less than 30
[2023-05-20] MEDS ORDERED: amLODIPine 5 MG TAB PO SCH (16:30)
[2023-05-20 16:55] LABS: Eosinophils # (M) 0.45 k/uL (0-0.7); Monocytes # (M) 0.45 k/uL (0-1.0); Neutrophils % (M) 64 %; Nucleated Red Blood Cells 0 /100 WBC (0-0); Total Cells Counted 100
[2023-05-20 17:27] VITALS: RESP 18
[2023-05-20] MEDS: amLODIPine 5 MG TAB PO SCH (21:33)
[2023-05-20] MEDS: LATANOPROST 0.005% OPHTH DROPS 2.5 ML BTL BOTH EYES SCH (21:34)
[2023-05-21] MEDS: PANTOPRAZOLE 40 MG TABLET PO SCH (06:39)
[2023-05-21 08:02] VITALS: TEMP 98.3
[2023-05-21] MEDS: amLODIPine 5 MG TAB PO SCH (08:17)
[2023-05-21] MEDS: CHOLECALCIFEROL 25 MCG (1000 IU) TABLET PO SCH (08:17)
[2023-05-21] MEDS: ASCORBIC ACID 500 MG TAB PO SCH (08:17)
[2023-05-21] MEDS: CLOPIDOGREL 75 MG TAB PO SCH (08:17)
[2023-05-21] MEDS: ATORVASTATIN 40 MG TAB PO SCH (08:17)
[2023-05-21] MEDS: LISINOPRIL-HCTZ 20-12.5 MG 1 EACH TAB PO SCH (08:17)
[2023-05-21] MEDS: ZINC SULFATE 220 MG CAP PO SCH (08:17)
[2023-05-21 11:37] VITALS: BP 180/94; PULSE 102
--- NOTE | 2023-05-21 12:59 | CA ---
Transthoracic Echo Report Name: Ifeoma Castillo Age: 88 Gender: F : 1935 Exam Date: 05/20/2023 15:17 Exam Location: [facility] Ht (in): 59 Wt (lb): 133 Ordering Physician: Bryson Cummings MD ([email or web address]) Attending/Referring Phys: Mud Jack Nozzleman Zainab Kaplan [facility] Procedure CPT: Indications: presyncope Cardiac Hx: Technical Quality: Fair Contrast 1: Total Dose (mL): Contrast 2: Total Dose (mL): MEASUREMENTS (Male / Female) Normal Values 2D ECHO LV Diastolic Diameter PLAX 3.3 cm 4.2 - 5.9 / 3.9 - 5.3 cm LV Systolic Diameter PLAX 2.1 cm IVS Diastolic Thickness 1.0 cm 0.6 - 1.0 / 0.6 - 0.9 cm LVPW Diastolic Thickness 1.0 cm 0.6 - 1.0 / 0.6 - 0.9 cm LV Relative Wall Thickness 0.6 LVOT Diameter 2.0 cm M-MODE Aortic Root Diameter MM 2.3 cm LA Systolic Diameter MM 2.9 cm LA Ao Ratio MM 1.3 AV Cusp Separation MM 1.9 cm DOPPLER AV Peak Velocity 113.4 cm/s AV Peak Gradient 5.1 mmHg AV Mean Velocity 89.3 cm/s AV Mean Gradient 3.4 mmHg AV Velocity Time Integral 23.1 cm LVOT Peak Velocity 99.7 cm/s LVOT Peak Gradient 4.0 mmHg LVOT Velocity Time Integral 21.0 cm LVOT Stroke Volume 65.1 cm??? LVOT Stroke Volume Index 42.0 ml/m??? LVOT Cardiac Index 3535.1 cm???/min???m??? AV Area Cont Eq vti 2.8 cm??? AV Area Cont Eq pk 2.7 cm??? Mitral E Point Velocity 69.1 cm/s Mitral A Point Velocity 98.2 cm/s Mitral E to A Ratio 0.7 MV Deceleration Time 228.2 ms LV E' Lateral Velocity 6.0 cm/s Mitral E to LV E' Lateral Ratio 11.5 LV E' Septal Velocity 5.3 cm/s Mitral E to LV E' Septal Ratio 13.1 TR Peak Velocity 238.7 cm/s TR Peak Gradient 22.8 mmHg Right Atrial Pressure 8.0 mmHg Pulmonary Artery Systolic Pressu 30.8 mmHg Right Ventricular Systolic Press 30.8 mmHg FINDINGS Left Ventricle Mildly increased left ventricular wall thickness. Small left ventricular cavity. Normal left ventricular systolic function with no obvious regional wall motion abnormalities. Left ventricular ejection fraction is estimated at 60- 65%. Right Ventricle Normal right ventricular size. Right Atrium Normal right atrial size. Left Atrium Normal left atrial size. Mitral Valve Mitral valve thickened. Trace mitral regurgitation. Aortic Valve Aortic valve not well visualized. No aortic valve stenosis or regurgitation. Tricuspid Valve Structurally normal tricuspid valve. Trace tricuspid regurgitation. Pulmonic Valve Pulmonic valve not well visualized. Pericardium No pericardial effusion. Echo free space anterior to the right ventricle likely represents a fat pad. Aorta Normal size aortic root. CONCLUSIONS LVH preserved systolic function Previewed by: Dr. Mario Moran MD (Electronically Signed) Final Date: 21 May 2023 12:58
--- NOTE | 2023-05-21 14:10 | P.PN ---
Subjective HISTORY OF PRESENT ILLNESS: This is an 88-year-old female who was admitted to the hospital secondary to dizziness. Patient denies having a syncopal episode. Patient examined this morning at the bedside. Patient denies chest pain or pressure. She denies shortness of breath. She currently denies dizziness or lightheadedness. Patient's blood pressure is elevated this morning with a systolic in the 180s. 05/21/2023 Patient examined this morning at the bedside. Patient denies chest pain or pressure. She denies shortness of breath. She reports improvement in her dizziness. Patient's blood pressure is improved today. Echocardiogram completed revealing ejection fraction 60-65%, trace TR, and trace MR PHYSICAL EXAM: VITAL SIGNS: Reviewed. GENERAL: Well-developed in no acute distress. NECK: Supple. No JVD or thyromegaly LUNGS: Respirations even and unlabored. Lungs essentially clear to auscultation bilaterally. HEART: Regular rate and rhythm. S1 and S2 heard. EXTREMITIES: Normal range of motion. No clubbing or cyanosis. Peripheral pulses intact. No lower extremity edema ASSESSMENT: Dizziness with presyncope Hypertension, uncontrolled, improved Abnormal troponins, flat, not suggestive of acute coronary syndrome History of carotid stenosis with left carotid endarterectomy PLAN: Continue current cardiac medications Patient is stable for discharge home today from a cardiac standpoint She is to follow up on an outpatient basis Nurse practitioner note has been reviewed by physician. Signing provider agrees with the documented findings, assessment, and plan of care. Objective - Vital Signs Vital signs: Vital Signs Temp 98.3 F 05/21/23 07:48 Pulse 102 H 05/21/23 11:24 Resp 18 05/21/23 11:24 BP 180/94 05/21/23 11:24 Pulse Ox 96 05/21/23 11:24 FiO2 Intake & Output 05/20/23 05/21/23 05/21/23 18:59 06:59 18:59 Intake Total 118 Output Total 2 Balance -2 118 Intake: Oral 118 Output: Stool 2 Other: Voiding Method Toilet Toilet Toilet # Voids 1 - Labs CBC & Chem 7: 05/20/23 09:38 05/20/23 09:38
--- NOTE | 2023-05-23 22:47 | P.DS ---
Providers Date of admission: 05/20/23 07:09 Attending physician: Carter Barrera Consults: 05/18/23 22:28 Consult Physician Urgent Consulting Provider: [facility] Consult Reason/Comments: dizziness, positive orthostatics Do you want consulting provider notified?: Yes Primary care physician: John Fernandez Hospital Course: Final Diagnosis Dizziness/presyncope, Likely related to dehydration caused by diarrhea Mild elevation of troponin; likely not related to acute coronary syndrome Carotid artery disease status post left carotid endartectomy Hypertension Hyperlipidemia History of TIA/CVA Gastroesophageal reflux disease Discharge Disposition Patient is stable for discharge home has been cleared by cardiology. Patient no longer reports dizziness or lightheadedness with ambulation. Continue to monitor blood pressure at home in the evening after relaxing. Should be sitting down. Keep log for follow up wit PCP. Patient should see cardiology in the office in 1 to 2 weeks. Hospital Course This is an 88 year old female admitted for dizziness and lightheadedness. Patient had left carotid endartectomy completed 6 months ago. Residual 60% stenosis in right ICA and moderate disease in bilateral vertebral artery. Additional medical history of hypertension, hyperlipidemia, GERD. Patient had an episode of presyncope She reports that she was eating food when she felt flushed and dizzy and felt like she might pass out. She did not end up passing out. She denied having any falls. Patient reported that she went to lay down which resolved her symptoms. Her symptoms lasted for 15 minutes. It was not associated with chest pain chest pressure palpitations or shortness of breath. Brain CT showing no acute intracranial process. Neck CTA reveals no evidence of cervical vascular occlusion. There is improved patency of the left ICA. Stable moderate stenosis of the bilateral vertebral artery orgins. She is complaining of sore neck on the left side states it feels a bit swollen. On assessment there is no JVD she has +2 carotid pulse bilaterally no bruit or thrill detected. She was resumed on blood pressure medication and orthostatics are negative she has been up in the torres ambulating and no further reports of dizziness. Echocardiogram showing EF 60-65%. Did have mild troponin elevation peaked at 0.336. Cardiology felt this was not related to an acute coronary syndrome. Blood work is essentially unremarkable. Patients lungs are clear S1 S2 auscultated abdomen is soft and nontender. Focal neurological exam is negative. Patient will be discharged home. Please see medication reconciliation for a list of current medications. Thank you for allowing us to participate in the care of this patient. The impression and plan of care has been dictated by Beverley Roldan, Nurse Practitioner as directed. Dr. Eunice MD I have performed a history and physical examination and medical decision making of this patient, discussed the same with the dictator, and agree with the dictators assessment and plan as written, documented as a scribe. Based on total visit time, I have performed more than 50% of this visit. Patient Condition at Discharge: Good Plan - Discharge Summary New Discharge Prescriptions: New amLODIPine [Norvasc] 5 mg PO BID #60 tab Lisinopril-Hctz 20-12.5 mg [Zestoretic 20-12.5] 1 each PO DAILY #30 tab Continue Latanoprost [Xalatan 0.005%] 1 drop BOTH EYES HS Zinc Gluconate [Zinc] 50 mg PO DAILY Ascorbic Acid [Vitamin C] 1,000 mg PO DAILY Cholecalciferol [Vitamin D3 (25 Mcg = 1000 Iu)] 25 mcg PO DAILY Clopidogrel [Plavix] 75 mg PO DAILY Atorvastatin [Lipitor] 40 mg PO DAILY Acetaminophen Tab [Tylenol] 650 mg PO Q4HR PRN PRN Reason: Fever And/ Or Pain Omeprazole Magnesium [PriLOSEC OTC] 20 mg PO DAILY Discontinued Lisinopril-Hctz 10-12.5 mg [Zestoretic 10-12.5] 1 tab PO DAILY Discharge Medication List Latanoprost [Xalatan 0.005%] 1 drop BOTH EYES HS 08/13/18 [History] Omeprazole Magnesium [PriLOSEC OTC] 20 mg PO DAILY 07/26/21 [History] Zinc Gluconate [Zinc] 50 mg PO DAILY 08/26/22 [History] Ascorbic Acid [Vitamin C] 1,000 mg PO DAILY 11/13/22 [History] Cholecalciferol [Vitamin D3 (25 Mcg = 1000 Iu)] 25 mcg PO DAILY 11/13/22 [ History] Clopidogrel [Plavix] 75 mg PO DAILY 11/13/22 [History] Acetaminophen Tab [Tylenol] 650 mg PO Q4HR PRN 05/19/23 [History] Atorvastatin [Lipitor] 40 mg PO DAILY 05/19/23 [History] Lisinopril-Hctz 20-12.5 mg [Zestoretic 20-12.5] 1 each PO DAILY #30 tab 05/21/23 [Rx] amLODIPine [Norvasc] 5 mg PO BID #60 tab 05/21/23 [Rx] Follow up Appointment(s)/Referral(s): John Fernandez MD [Primary Care Provider] - 05/23/23 1:40 pm Bryson Cummings MD [Medical Doctor] - 06/10/23 4:15 pm (appt with Dr Rose) Rivas Goode DO [STAFF PHYSICIAN] - 05/28/23 12:45 pm Ambulatory/Diagnostic Orders: Basic Metabolic Panel [LAB.AMB] Time Frame: 3 Days, Location: None Selected Patient Instructions/Handouts: Dizziness (GEN) Activity/Diet/Wound Care/Special Instructions: Continue to monitor blood pressure at home in the evening after relaxing. Should be sitting down. Keep log for follow up wit PCP. Discharge Disposition: HOME SELF-CARE
== END 2023-05-21 15:08 | disposition home or self-care (01) | DRG 312 ==
LOC: EC 16:54 → 6NMEDSUR 20:10 → 3SCARD 05-19 17:39 → OBSVTOIN 05-20 07:09
PROVIDERS: ADMIT Hospitalist; ATTEND Hospitalist
DX: R55 Syncope and collapse (principal); E78.5 Hyperlipidemia, unspecified; K21.9 Gastro-esophageal reflux disease without esophagitis; R79.89 Other specified abnormal findings of blood chemistry; E86.0 Dehydration; R19.7 Diarrhea, unspecified; G31.84 Mild cognitive impairment of uncertain or unknown etiology; H66.90 Otitis media, unspecified, unspecified ear; I08.1 Rheumatic disorders of both mitral and tricuspid valves; I65.21 Occlusion and stenosis of right carotid artery; Z86.73 Personal history of transient ischemic attack (TIA), and cerebral infarction without residual deficits; Z79.02 Long term (current) use of antithrombotics/antiplatelets; Z79.899 Other long term (current) drug therapy; Z90.710 Acquired absence of both cervix and uterus; Z87.891 Personal history of nicotine dependence; Z90.49 Acquired absence of other specified parts of digestive tract; Z91.048 Other nonmedicinal substance allergy status
CPT/HCPCS: 36415; 70450; 70498; 80048; 80053; 81003; 83605; 83735; 84100; 84484; 85025; 85610; 85730; 93005; 93306; 96361; 96374; 96375; 99285

== ENCOUNTER 2023-08-23 18:16 | Inpatient (IN) | payer MEDICARE ==
[2023-08-23] MEDS ORDERED: SODIUM CHLORIDE 0.9% 1,000 ML IV STA ×3 (18:24)
[2023-08-23] MEDS ORDERED: ONDANSETRON 4 MG/2 ML VIAL IVP STA (18:24)
--- NOTE | 2023-08-23 19:04 | ED ---
Weakness HPI - General Chief complaint: Weakness Stated complaint: Weakness Time Seen by Provider: 08/23/23 18:24 Source: patient, EMS, RN notes reviewed, old records reviewed Mode of arrival: EMS Limitations: altered mental status, physical limitation - History of Present Illness Initial comments: This 88-year-old female to ER for evaluation of fever. Fever with altered mental status. Patient recently on antibiotics for infection cough congestion u pper respiratory illness. Patient is a poor historian secondary to current clinical condition and altered mental state. MD Complaint: generalized weakness, lack of energy, difficulty walking -: days(s) Location: generalized Severity: moderate Severity scale (1-10): 7 Quality: tingling Consistency: constant Improves with: none Worsens with: none Context: recent illness, history of similar Associated Symptoms: shortness of breath - Related Data Home Medications Medication Instructions Recorded Confirmed Latanoprost [Xalatan 0.005%] 1 drop BOTH EYES HS 08/13/18 08/23/23 Omeprazole Magnesium [PriLOSEC OTC] 20 mg PO DAILY 07/26/21 08/23/23 Zinc Gluconate [Zinc] 50 mg PO DAILY 08/26/22 08/23/23 Ascorbic Acid [Vitamin C] 1,000 mg PO DAILY 11/13/22 08/23/23 Cholecalciferol [Vitamin D3 (25 25 mcg PO DAILY 11/13/22 08/23/23 Mcg = 1000 Iu)] Clopidogrel [Plavix] 75 mg PO DAILY 11/13/22 08/23/23 Acetaminophen Tab [Tylenol] 650 mg PO Q4HR PRN 05/19/23 08/23/23 Atorvastatin [Lipitor] 40 mg PO DAILY 05/19/23 08/23/23 Lisinopril-Hctz 20-12.5 mg 1 tab PO DAILY 08/23/23 08/23/23 [Zestoretic 20-12.5] Previous Rx's Medication Instructions Recorded amLODIPine [Norvasc] 5 mg PO BID #60 tab 05/21/23 cefUROXime axetiL [Ceftin] 500 mg PO BID 1 Days #2 tab 08/26/23 Allergies Allergy/AdvReac Type Severity Reaction Status Date / Time blue dye Allergy Rash/Hives Verified 08/23/23 21:12 Review of Systems ROS Statement: Those systems with pertinent positive or pertinent negative responses have been documented in the HPI. ROS Other: All systems not noted in ROS Statement are negative. Past Medical History Past Medical History: CVA/TIA, Eye Disorder, GERD/Reflux, Hyperlipidemia, Hypertension, Memory Impairment, Syncope, Vascular Disorder Additional Past Medical History / Comment(s): Syncopy at times, bilateral macular degeneration, glaucoma. History of Any Multi-Drug Resistant Organisms: None Reported Past Surgical History: Cholecystectomy, Hysterectomy, Tonsillectomy Past Anesthesia/Blood Transfusion Reactions: No Reported Reaction Additional Past Anesthesia/Blood Transfusion Reaction / Comment(s): Pt has never received blood. Past Psychological History: No Psychological Hx Reported Smoking Status: Former smoker Past Alcohol Use History: None Reported Past Drug Use History: None Reported - Past Family History Mother History Unknown: Yes Additional Family Medical History / Comment(s): Mother when pt was 10 yrs old. Father History Unknown: Yes Additional Family Medical History / Comment(s): Father when pt was 14 yrs old General Exam Limitations: no limitations General appearance: alert, in no apparent distress, anxious Head exam: Present: atraumatic, normocephalic, normal inspection Eye exam: Present: normal appearance, PERRL, EOMI. Absent: scleral icterus, conjunctival injection, periorbital swelling ENT exam: Present: normal exam, mucous membranes moist Neck exam: Present: normal inspection. Absent: tenderness, meningismus, lymphadenopathy Respiratory exam: Present: normal lung sounds bilaterally. Absent: respiratory distress, wheezes, rales, rhonchi, stridor Cardiovascular Exam: Present: regular rate, normal rhythm, tachycardia, normal heart sounds. Absent: systolic murmur, diastolic murmur, rubs, gallop, clicks GI/Abdominal exam: Present: soft, normal bowel sounds. Absent: distended, tenderness, guarding, rebound, rigid Extremities exam: Present: normal inspection, full ROM, normal capillary refill. Absent: tenderness, pedal edema, joint swelling, calf tenderness Back exam: Present: normal inspection Neurological exam: Present: alert, oriented X3, CN II-XII intact Psychiatric exam: Present: normal affect, normal mood Skin exam: Present: warm, dry, intact, normal color. Absent: rash Course Vital Signs 08/23/23 08/23/23 08/23/23 18:17 23:02 23:12 Temperature 101.4 F H 99.2 F 99.2 F Pulse Rate 117 H 91 80 Respiratory 20 18 18 Rate Blood Pressure 107/85 136/83 126/53 O2 Sat by Pulse 97 98 98 Oximetry - Reevaluation(s) Reevaluation #1: 08/23/23 21:08 Record is reviewed Reevaluation #2: 08/23/23 21:08 Patient symptoms are improving here in the ER Reevaluation #3: 08/23/23 21:08 Supportive results and questions answered Reevaluation #4: 08/23/23 21:08 Was pt. sent in by a medical professional or institution (, [facility], [employer], urgent care, hospital, or usp...) When possible be specific @ -no Did you speak to anyone other than the patient for history (EMS, parent, family, police, friend...)? What history was obtained from this source @ -no Did you review nursing and triage notes (agree or disagree)? Why? @ -agree Are old charts reviewed (outside hosp., previous admission, EMS record, old EKG, old radiological studies, urgent care reports/EKG's, usp records)? Report findings @ -yes Differential Diagnosis (chest pain, altered mental status, abdominal pain women, abdominal pain men, vaginal bleeding, weakness, fever, dyspnea, syncope, headache, dizziness, GI bleed, back pain, seizure, CVA, palpatations, mental health, musculoskeletal)? @ -prior EKG interpreted by me (3pts min.). @ -yes X-rays interpreted by me (1pt min.). @ -yes negative for acute disease CT interpreted by me (1pt min.). @ -yes negative for acute disease U/S interpreted by me (1pt. min.). @ -no What testing was considered but not performed or refused? (CT, X-rays, U/S, labs)? Why? @ -none What meds were considered but not given or refused? Why? @ -none Did you discuss the management of the patient with other professionals (professionals i.e. [facility], [employer], lab, RT, psych nurse, social insurance adviser, lawyer criminal, teacher, accounts officer, field nurse case manager)? Give summary @ -no Was smoking cessation discussed for >3mins.? @ -no Was critical care preformed (if so, how long)? @ -no Were there social determinants of health that impacted care today? How? (Homelessness, low income, unemployed, alcoholism, drug addiction, transportation, low edu. Level, literacy, decrease access to med. care, prison, rehab)? @ -none Was there de-escalation of care discussed even if they declined (Discuss DNR or withdrawal of care, Hospice)? DNR status @ -no What co-morbidities impacted this encounter? (DM, HTN, Smoking, COPD, CAD, Cancer, CVA, ARF, Chemo, Hep., AIDS, mental health diagnosis, sleep apnea, morbid obesity)? @ -none Was patient admitted / discharged? Hospital course, mention meds given and route, prescriptions, significant lab abnormalities, going to OR and other pertinent info. @ - 88 female to the ER today for evaluation of fever with altered mental status positive for UTI. Urinary tract infection here in the emergency department. Patient will be admitted for IV antibiotics Admitted Undiagnosed new problem with uncertain prognosis? @ -no Drug Therapy requiring intensive monitoring for toxicity (Heparin, Nitro, Insulin, Cardizem)? @ -no Were any procedures done? @ -no Diagnosis/symptom? @ -UTI, altered mental status Acute, or Chronic, or Acute on Chronic? @ -Acute Uncomplicated (without systemic symptoms) or Complicated (systemic symptoms)? @ -Complicated Side effects of treatment? @ -no Exacerbation, Progression, or Severe Exacerbation? @ -exacerbation Poses a threat to life or bodily function? How? (Chest pain, USA, CA, pneumonia, PE, COPD, DKA, ARF, appy, cholecystitis, CVA, Diverticulitis, Homicidal, Suicidal, threat to staff... and all critical care pts) @ -yes significant extremes of age Reevaluation #5: 08/23/23 21:08 Differential Fever: Pneumonia, viral URI, endocarditis, myocarditis, pericarditis, otitis, sin usitis, peritonsillar Abscess, retropharyngeal Abscess, epiglottitis, peritonitis, appendicitis, Miriam cystitis, diverticulitis, hepatitis, colitis, UTI, PID, TOA, pyelonephritis, prostatitis, epididymitis, meningitis, encephalitis, pulmonary embolism, CVA, thyroid storm, pancreatitis, adrenal crisis, cavernous sinus thrombosis, this is not meant to be an all-inclusive list. - Consultations Consultation #1: Spoke with admitting physicians who agreed to admit this patient EKG Findings - EKG Comments: EKG Findings:: EKG is sinus tachycardia 114 ID 122 QRS 81 QTc 394 - EKG Results: EKG: interpreted by [facility] Medical Decision Making - Medical Decision Making 88 female to the ER today for evaluation of fever with altered mental status positive for UTI. Urinary tract infection here in the emergency department. Patient will be admitted for IV antibiotics - Lab Data Result diagrams: 08/26/23 05:37 08/26/23 05:37 Lab Results 08/23/23 08/23/23 08/23/23 Range/Units 18:30 18:30 18:30 WBC 17.1 H (3.8-10.6) k/uL RBC 4.26 (3.80-5.40) m/uL Hgb 13.4 (11.4-16.0) gm/dL Hct 39.5 (34.0-46.0) % MCV 92.7 (80.0-100.0) fL MCH 31.4 (25.0-35.0) pg MCHC 33.8 (31.0-37.0) g/dL RDW 12.9 (11.5-15.5) % Plt Count 305 (150-450) k/uL MPV 8.3 Neutrophils % Not Reportable Neutrophils % (Manual) 88 % Band Neuts % (Manual) 1 % Lymphocytes % Not Reportable Lymphocytes % (Manual) 2 % Monocytes % Not Reportable Monocytes % (Manual) 8 % Eosinophils % Not Reportable Eosinophils % (Manual) 1 % Basophils % Not Reportable Neutrophils # Not Reportable Neutrophils # (Manual) 15.20 H (1.3-7.7) k/uL Lymphocytes # Not Reportable Lymphocytes # (Manual) 0.34 L (1.0-4.8) k/uL Monocytes # Not Reportable Monocytes # (Manual) 1.37 H (0-1.0) k/uL Eosinophils # Not Reportable Eosinophils # (Manual) 0.17 (0-0.7) k/uL Basophils # Not Reportable Nucleated RBCs 0 (0-0) /100 WBC Manual Slide Review Performed RBC Morphology Normal PT 10.9 (10.0-12.5) sec INR 1.0 (<1.2) APTT 24.3 (22.0-30.0) sec Sodium (137-145) mmol/L Potassium (3.5-5.1) mmol/L Chloride (98-107) mmol/L Carbon Dioxide (22-30) mmol/L Anion Gap mmol/L BUN (7-17) mg/dL Creatinine (0.52-1.04) mg/dL Est GFR (CKD-EPI)AfAm (>60 ml/min/1.73 sqM) Est GFR (CKD-EPI)NonAf (>60 ml/min/1.73 sqM) Glucose (74-99) mg/dL Plasma Lactic Acid Harris (0.7-2.0) mmol/L Calcium (8.4-10.2) mg/dL Phosphorus (2.5-4.5) mg/dL Magnesium (1.6-2.3) mg/dL Total Bilirubin (0.2-1.3) mg/dL AST (14-36) U/L ALT (4-34) U/L Alkaline Phosphatase (38-126) U/L Troponin I (0.000-0.034) ng/mL NT-Pro-B Natriuret Pep pg/mL Total Protein (6.3-8.2) g/dL Albumin (3.5-5.0) g/dL TSH (0.465-4.680) mIU/L Urine Color Colorless Urine Appearance Cloudy H (Clear) Urine pH 6.5 (5.0-8.0) Ur Specific [place] 1.011 (1.001-1.035) Urine Protein 1+ H (Negative) Urine Glucose (UA) Negative (Negative) Urine Ketones Negative (Negative) Urine Blood Moderate H (Negative) Urine Nitrite Positive H (Negative) Urine Bilirubin Negative (Negative) Urine Urobilinogen <2.0 (<2.0) mg/dL Ur Leukocyte Esterase Large H (Negative) Urine RBC 4 (0-5) /hpf Urine WBC 139 H (0-5) /hpf Urine WBC Clumps Few H (None) /hpf Ur Squamous Epith Cells 1 (0-4) /hpf Urine Bacteria Rare H (None) /hpf Urine Mucus Rare H (None) /hpf Influenza Type A (PCR) (Not Detectd) Influenza Type B (PCR) (Not Detectd) RSV (PCR) (Not Detectd) SARS-CoV-2 (PCR) (Not Detectd) 08/23/23 08/23/23 08/23/23 Range/Units 18:30 18:30 18:30 WBC (3.8-10.6) k/uL RBC (3.80-5.40) m/uL Hgb (11.4-16.0) gm/dL Hct (34.0-46.0) % MCV (80.0-100.0) fL MCH (25.0-35.0) pg MCHC (31.0-37.0) g/dL RDW (11.5-15.5) % Plt Count (150-450) k/uL MPV Neutrophils % Neutrophils % (Manual) % Band Neuts % (Manual) % Lymphocytes % Lymphocytes % (Manual) % Monocytes % Monocytes % (Manual) % Eosinophils % Eosinophils % (Manual) % Basophils % Neutrophils # Neutrophils # (Manual) (1.3-7.7) k/uL Lymphocytes # Lymphocytes # (Manual) (1.0-4.8) k/uL Monocytes # Monocytes # (Manual) (0-1.0) k/uL Eosinophils # Eosinophils # (Manual) (0-0.7) k/uL Basophils # Nucleated RBCs (0-0) /100 WBC Manual Slide Review RBC Morphology PT (10.0-12.5) sec INR (<1.2) APTT (22.0-30.0) sec Sodium 136 L (137-145) mmol/L Potassium 4.5 (3.5-5.1) mmol/L Chloride 103 (98-107) mmol/L Carbon Dioxide 21 L (22-30) mmol/L Anion Gap 12 mmol/L BUN 19 H (7-17) mg/dL Creatinine 0.70 (0.52-1.04) mg/dL Est GFR (CKD-EPI)AfAm >90 (>60 ml/min/1.73 sqM) Est GFR (CKD-EPI)NonAf 79 (>60 ml/min/1.73 sqM) Glucose 129 H (74-99) mg/dL Plasma Lactic Acid Harris 1.3 (0.7-2.0) mmol/L Calcium 9.7 (8.4-10.2) mg/dL Phosphorus 3.9 (2.5-4.5) mg/dL Magnesium 1.8 (1.6-2.3) mg/dL Total Bilirubin 2.1 H (0.2-1.3) mg/dL AST 29 (14-36) U/L ALT 16 (4-34) U/L Alkaline Phosphatase 92 (38-126) U/L Troponin I <0.012 (0.000-0.034) ng/mL NT-Pro-B Natriuret Pep 299 pg/mL Total Protein 7.7 (6.3-8.2) g/dL Albumin 4.5 (3.5-5.0) g/dL TSH 1.420 (0.465-4.680) mIU/L Urine Color Urine Appearance (Clear) Urine pH (5.0-8.0) Ur Specific [place] (1.001-1.035) Urine Protein (Negative) Urine Glucose (UA) (Negative) Urine Ketones (Negative) Urine Blood (Negative) Urine Nitrite (Negative) Urine Bilirubin (Negative) Urine Urobilinogen (<2.0) mg/dL Ur Leukocyte Esterase (Negative) Urine RBC (0-5) /hpf Urine WBC (0-5) /hpf Urine WBC Clumps (None) /hpf Ur Squamous Epith Cells (0-4) /hpf Urine Bacteria (None) /hpf Urine Mucus (None) /hpf Influenza Type A (PCR) (Not Detectd) Influenza Type B (PCR) (Not Detectd) RSV (PCR) (Not Detectd) SARS-CoV-2 (PCR) (Not Detectd) 08/23/23 Range/Units 18:54 WBC (3.8-10.6) k/uL RBC (3.80-5.40) m/uL Hgb (11.4-16.0) gm/dL Hct (34.0-46.0) % MCV (80.0-100.0) fL MCH (25.0-35.0) pg MCHC (31.0-37.0) g/dL RDW (11.5-15.5) % Plt Count (150-450) k/uL MPV Neutrophils % Neutrophils % (Manual) % Band Neuts % (Manual) % Lymphocytes % Lymphocytes % (Manual) % Monocytes % Monocytes % (Manual) % Eosinophils % Eosinophils % (Manual) % Basophils % Neutrophils # Neutrophils # (Manual) (1.3-7.7) k/uL Lymphocytes # Lymphocytes # (Manual) (1.0-4.8) k/uL Monocytes # Monocytes # (Manual) (0-1.0) k/uL Eosinophils # Eosinophils # (Manual) (0-0.7) k/uL Basophils # Nucleated RBCs (0-0) /100 WBC Manual Slide Review RBC Morphology PT (10.0-12.5) sec INR (<1.2) APTT (22.0-30.0) sec Sodium (137-145) mmol/L Potassium (3.5-5.1) mmol/L Chloride (98-107) mmol/L Carbon Dioxide (22-30) mmol/L Anion Gap mmol/L BUN (7-17) mg/dL Creatinine (0.52-1.04) mg/dL Est GFR (CKD-EPI)AfAm (>60 ml/min/1.73 sqM) Est GFR (CKD-EPI)NonAf (>60 ml/min/1.73 sqM) Glucose (74-99) mg/dL Plasma Lactic Acid Harris (0.7-2.0) mmol/L Calcium (8.4-10.2) mg/dL Phosphorus (2.5-4.5) mg/dL Magnesium (1.6-2.3) mg/dL Total Bilirubin (0.2-1.3) mg/dL AST (14-36) U/L ALT (4-34) U/L Alkaline Phosphatase (38-126) U/L Troponin I (0.000-0.034) ng/mL NT-Pro-B Natriuret Pep pg/mL Total Protein (6.3-8.2) g/dL Albumin (3.5-5.0) g/dL TSH (0.465-4.680) mIU/L Urine Color Urine Appearance (Clear) Urine pH (5.0-8.0) Ur Specific [place] (1.001-1.035) Urine Protein (Negative) Urine Glucose (UA) (Negative) Urine Ketones (Negative) Urine Blood (Negative) Urine Nitrite (Negative) Urine Bilirubin (Negative) Urine Urobilinogen (<2.0) mg/dL Ur Leukocyte Esterase (Negative) Urine RBC (0-5) /hpf Urine WBC (0-5) /hpf Urine WBC Clumps (None) /hpf Ur Squamous Epith Cells (0-4) /hpf Urine Bacteria (None) /hpf Urine Mucus (None) /hpf Influenza Type A (PCR) Not Detected (Not Detectd) Influenza Type B (PCR) Not Detected (Not Detectd) RSV (PCR) Not Detected (Not Detectd) SARS-CoV-2 (PCR) Not Detected (Not Detectd) - EKG Data -: EKG Interpreted by Me - Radiology Data Radiology results: report reviewed (CT brain and chest x-rays negative for acute disease), image reviewed Disposition Clinical Impression: Dehydration, UTI (urinary tract infection), Weakness, AMS (altered mental status), Fever Disposition: ADMITTED IP TO THIS [facility] Condition: Stable Is patient prescribed a controlled substance at d/c from ED?: No Time of Disposition: 21:00
--- NOTE | 2023-08-23 19:14 | XR ---
EXAMINATION TYPE: XR chest 2V DATE OF EXAM: 08/23/2023 COMPARISON: 08/26/2022 HISTORY: Shortness of breath TECHNIQUE: Frontal and lateral views of the chest are obtained. FINDINGS: Scattered senescent parenchymal changes noted. Hyperinflation compatible with COPD. No evidence for infiltrate. No evidence for atelectasis. Heart size is stable. Small fixed hiatal hernia noted. Mediastinal structures are stable and grossly unremarkable. No evidence for hilar prominence. Degenerative changes dorsal spine. IMPRESSION: 1. No evidence for acute pulmonary disease.
[2023-08-23 19:21] LABS: ALT 16 U/L (4-34); AST 29 U/L (14-36); African American GFR (CKD) >90 (>60 ml/min/1.73 sqM); Albumin 4.5 g/dL (3.5-5.0); Alkaline Phosphatase 92 U/L (38-126); Anion Gap 12 mmol/L; Blood Urea Nitrogen 19 mg/dL (7-17); Calcium 9.7 mg/dL (8.4-10.2); Carbon Dioxide 21 mmol/L (22-30); Chloride 103 mmol/L (98-107); Glucose 129 mg/dL (74-99); Magnesium 1.8 mg/dL (1.6-2.3); Non-African American GFR(CKD) 79 (>60 ml/min/1.73 sqM); Phosphorus 3.9 mg/dL (2.5-4.5); Sodium 136 mmol/L (137-145); Total Bilirubin 2.1 mg/dL (0.2-1.3); Total Protein 7.7 g/dL (6.3-8.2)
--- NOTE | 2023-08-23 19:22 | CT ---
EXAMINATION TYPE: CT brain wo con DATE OF EXAM: 08/23/2023 COMPARISON: 05/18/2023 HISTORY: Weakness. CT DLP: 1109.[address] of the brain was performed. The ventricles, basal cisterns and sulci overlying the cerebral convexities demonstrate mild enlargem ent. There is no evidence for intracranial hemorrhage or sulcal effacement. There is decreased attenuation about the periventricular white matter and deep white matter of both c erebral hemispheres, compatible with chronic small vessel ischemia. Differential diagnosis does inclu de demyelination. No mass effects are seen.No midline shift. Osseous calvarium is intact. If symptoms persist consider MRI. IMPRESSION: 1. Age related atrophic and chronic small vessel ischemic change without acute intracranial process s een at this time.
[2023-08-23 19:30] LABS: NT-Pro-B-Type Natriuretic Pept 299 pg/mL
[2023-08-23 19:32] LABS: HCT 39.5 % (34.0-46.0); HGB 13.4 gm/dL (11.4-16.0); MCH 31.4 pg (25.0-35.0); MCHC 33.8 g/dL (31.0-37.0); MCV 92.7 fL (80.0-100.0); Mean Platelet Volume 8.3; Platelet Count 305 k/uL (150-450); RBC 4.26 m/uL (3.80-5.40); RDW 12.9 % (11.5-15.5); WBC 17.1 k/uL (3.8-10.6)
[2023-08-23 19:48] LABS: Partial Thromboplastin Time 24.3 sec (22.0-30.0); Prothrombin Time 10.9 sec (10.0-12.5)
[2023-08-23 20:28] LABS: Potassium 4.5 mmol/L (3.5-5.1)
[2023-08-23 20:29] LABS: Appearance,Urine Cloudy (Clear); Bacteria,Urine Rare /hpf; Bilirubin,Urine Negative (Negative); Blood,Urine Moderate (Negative); Color,Urine Colorless; Glucose,Urine (UA) Negative (Negative); Ketones,Urine Negative (Negative); Leukocyte Esterase,Urine Large (Negative); Mucus,Urine Rare /hpf; Nitrite,Urine Positive (Negative); PH, Urine 6.5 (5.0-8.0); Protein,Urine 1+ (Negative); RBC,Urine 4 /hpf (0-5); Specific Gravity,Urine 1.011 (1.001-1.035); Squamous Epithelial Cell,Urine 1 /hpf (0-4); Urobilinogen,Urine <2.0 mg/dL (<2.0); WBC,Urine 139 /hpf (0-5)
[2023-08-23 20:35] LABS: Band Neutrophils % 1 %; Eosinophils # (M) 0.17 k/uL (0-0.7); Lymphocytes # (M) 0.34 k/uL (1.0-4.8); Monocytes # (M) 1.37 k/uL (0-1.0); Neutrophils % (M) 88 %; Nucleated Red Blood Cells 0 /100 WBC (0-0); Total Cells Counted 100
[2023-08-23 20:36] LABS: RBC Morphology Normal
[2023-08-23] MEDS ORDERED: NALOXONE 0.4 MG/ML 1 ML VIAL IV PRN (21:04)
[2023-08-23] MEDS ORDERED: MORPHINE SULFATE 4 MG/ML SYRINGE IV PRN (21:04)
[2023-08-23] MEDS ORDERED: ONDANSETRON 4 MG/2 ML VIAL IVP PRN (21:04)
[2023-08-23] MEDS: SODIUM CHLORIDE 0.9% 1,000 ML IV SCH (23:53)
[2023-08-24 01:52] LABS: Glucose,Whole Blood 141 mg/dL (70-110)
[2023-08-24] MEDS ORDERED: methylPREDNISolone SOD SUCCI 125 MG/2 ML VIAL IV STA (01:56)
[2023-08-24] MEDS ORDERED: ACETAMINOPHEN IV (For NPO) 1,000 MG in EMPTY BAG 1 BAG IVPB PRN (02:00)
[2023-08-24 02:04] LABS: ABG Base Excess -6.4 mmol/L; ABG HCO3 19 mmol/L (21-25); ABG Oxygen Saturation 99.7 % (94-97); ABG PCO2 33 mmHg (35-45); ABG PH 7.37 (7.35-7.45); ABG PO2 299 mmHg (83-108); ABG TCO2 20 mmol/L (19-24); Allen Test Performed? Yes
--- NOTE | 2023-08-24 04:20 | XR ---
EXAM: XR Chest, 1 View CLINICAL HISTORY: ITS.REASON XR Reason: Resp distress TECHNIQUE: Frontal view of the chest. COMPARISON: No relevant prior studies available. IMPRESSION: Cardiomegaly. Slight pulmonary edema
[2023-08-24] MEDS: SODIUM CHLORIDE 0.9% 1,000 ML IV SCH ×3 (05:41→20:41)
[2023-08-24 06:36] LABS: HCT 33.2 % (34.0-46.0); HGB 10.9 gm/dL (11.4-16.0); MCH 30.6 pg (25.0-35.0); MCHC 32.8 g/dL (31.0-37.0); MCV 93.3 fL (80.0-100.0); Mean Platelet Volume 8.3; Platelet Count 283 k/uL (150-450); RBC 3.56 m/uL (3.80-5.40); WBC 18.9 k/uL (3.8-10.6)
[2023-08-24 06:52] LABS: ALT 18 U/L (4-34); AST 25 U/L (14-36); African American GFR (CKD) 89 (>60 ml/min/1.73 sqM); Albumin 3.3 g/dL (3.5-5.0); Alkaline Phosphatase 79 U/L (38-126); Anion Gap 9 mmol/L; Blood Urea Nitrogen 17 mg/dL (7-17); Calcium 8.3 mg/dL (8.4-10.2); Carbon Dioxide 19 mmol/L (22-30); Chloride 107 mmol/L (98-107); Glucose 182 mg/dL (74-99); Magnesium 1.6 mg/dL (1.6-2.3); Non-African American GFR(CKD) 77 (>60 ml/min/1.73 sqM); Phosphorus 2.9 mg/dL (2.5-4.5); Potassium 3.7 mmol/L (3.5-5.1); Sodium 135 mmol/L (137-145); Total Bilirubin 1.7 mg/dL (0.2-1.3)
[2023-08-24 06:59] LABS: Band Neutrophils % 11 %; Lymphocytes # (M) 0.19 k/uL (1.0-4.8); Monocytes # (M) 0.57 k/uL (0-1.0); Neutrophils % (M) 85 %; Nucleated Red Blood Cells 0 /100 WBC (0-0); Total Cells Counted 100; Toxic Granulation Present
[2023-08-24] MEDS: PANTOPRAZOLE 40 MG TABLET PO SCH (10:09)
[2023-08-24] MEDS: CLOPIDOGREL 75 MG TAB PO SCH (10:09)
--- NOTE | 2023-08-24 13:24 | P.HPIM ---
History of Present Illness H&P Date: 08/24/23 Chief Complaint: Generalized weakness * 88-year-old female with past medical history significant for CVA, GERD, hypertension, hyperlipidemia history of macular degeneration presents to the emergency department on 08/23/23 at 6:24 PM with complains of generalized weakness, having fever and confusion. Patient said she was recently on antibiotics for concerns for upper respiratory illness, patient states she's been feeling weak with lack of energy and having difficulty in walking. Workup in ER included CBC showed WBC count of 17.1 hemoglobin 13. Count of 305 INR of 1, serum chemistry obtained showed sodium of 136 potassium 4.5, dissected 20 1B UN 19 creatinine 0.7 glucose of 129 lactate of 1.3 total bilirubin of 2.1 with normal ALT and AST troponin within normal limits N- terminal. BNP 299 * Urinalysis was obtained which was positive for urinary tract infection with large leukocyte esterase WBC and many bacteria * Patient tested negative for influenza, RSV and Covid, chest x-ray obtained in ER was negative for acute pulmonary process * At the time of admission in ER patient had a CT head done that was negative for acute intracranial process age-related atrophic and chronic small vessel ischemic changes noted * In the time of admission patient was climbing plus with sepsis patient had received 2 L of fluid bolus and was persistently febrile * While on medical floor rapid response was also called for persistent fever and hypotension and repeat blood work was obtained REVIEW OF SYSTEMS: Weakness, lethargic, CONSTITUTIONAL:Weakness, lethargic, HEENT: No recent visual problems or hearing problems. Denied any sore throat. CARDIOVASCULAR: No chest pain, orthopnea, PND, no palpitations, no syncope. PULMONARY: No shortness of breath, no cough, no hemoptysis. GASTROINTESTINAL: No diarrhea, no nausea, no vomiting, no abdominal pain. NEUROLOGICAL: No headaches, no weakness, no numbness. HEMATOLOGICAL: Denies any bleeding or petechiae. GENITOURINARY: Denies any burning micturition, frequency, or urgency. MUSCULOSKELETAL/RHEUMATOLOGICAL: Denies any joint pain, swelling, or any muscle pain. ENDOCRINE: Denies any polyuria or polydipsia. PHYSICAL EXAMINATION: GENERAL: The patient is alert and oriented x3, lethargic easily arousable alert, ill appearance HEENT: Pupils are round and equally reacting to light. EOMI Normocephalic, atraumatic. No pharyngeal erythema. No thyromegaly. CARDIOVASCULAR: S1 and S2 present. No murmurs, rubs, or gallops. PULMONARY: Chest is clear to auscultation, no wheezing or crackles. ABDOMEN: Soft, nontender, nondistended, normoactive bowel sounds. No palpable organomegaly. MUSCULOSKELETAL: No joint swelling or deformity. EXTREMITIES: No cyanosis, clubbing, or pedal edema. NEUROLOGICAL: Gross neurological examination did not reveal any focal deficits. Past Medical History Past Medical History: CVA/TIA, Eye Disorder, GERD/Reflux, Hyperlipidemia, Hypertension, Memory Impairment, Syncope, Vascular Disorder Additional Past Medical History / Comment(s): Syncopy at times, bilateral ma cular degeneration, glaucoma. History of Any Multi-Drug Resistant Organisms: None Reported Past Surgical History: Cholecystectomy, Hysterectomy, Tonsillectomy Past Anesthesia/Blood Transfusion Reactions: No Reported Reaction Additional Past Anesthesia/Blood Transfusion Reaction / Comment(s): Pt has never received blood. Past Psychological History: No Psychological Hx Reported Additional Psychological History / Comment(s): Pt resides with jake-in-law. Smoking Status: Former smoker Past Alcohol Use History: None Reported Additional Past Alcohol Use History / Comment(s): Pt started smoking in 1951 and quit in 2002 Past Drug Use History: None Reported - Past Family History Mother History Unknown: Yes Additional Family Medical History / Comment(s): Mother when pt was 10 yrs old. Father History Unknown: Yes Additional Family Medical History / Comment(s): Father when pt was 14 yrs old Medications and Allergies Home Medications Medication Instructions Recorded Confirmed Type Latanoprost [Xalatan 0.005%] 1 drop BOTH EYES HS 08/13/18 08/23/23 History Omeprazole Magnesium [PriLOSEC OTC] 20 mg PO DAILY 07/26/21 08/23/23 History Zinc Gluconate [Zinc] 50 mg PO DAILY 08/26/22 08/23/23 History Ascorbic Acid [Vitamin C] 1,000 mg PO DAILY 11/13/22 08/23/23 History Cholecalciferol [Vitamin D3 (25 25 mcg PO DAILY 11/13/22 08/23/23 History Mcg = 1000 Iu)] Clopidogrel [Plavix] 75 mg PO DAILY 11/13/22 08/23/23 History Acetaminophen Tab [Tylenol] 650 mg PO Q4HR PRN 05/19/23 08/23/23 History Atorvastatin [Lipitor] 40 mg PO DAILY 05/19/23 08/23/23 History amLODIPine [Norvasc] 5 mg PO BID #60 tab 05/21/23 08/23/23 Rx Lisinopril-Hctz 20-12.5 mg 1 tab PO DAILY 08/23/23 08/23/23 History [Zestoretic 20-12.5] Allergies Allergy/AdvReac Type Severity Reaction Status Date / Time blue dye Allergy Rash/Hives Verified 08/23/23 21:12 Physical Exam Vitals: Vital Signs Temp Pulse Pulse Resp BP BP Pulse Ox 08/24/23 07:38 97.4 F L 84 20 92/57 92 L 08/24/23 05:30 100.3 F H 08/24/23 03:11 100.3 F H 08/24/23 01:46 102.7 F H 08/24/23 01:30 101.0 F H 08/24/23 01:05 99.6 F 106 H 22 141/58 95 08/23/23 23:54 98.5 F 102 H 18 135/75 98 08/23/23 23:26 102 H 18 08/23/23 23:12 99.2 F 80 18 126/53 98 08/23/23 23:02 99.2 F 91 18 136/83 98 08/23/23 18:17 101.4 F H 117 H 20 107/85 97 Intake and Output 08/23/23 08/24/23 08/24/23 22:59 06:59 14:59 Other: Voiding Method Toilet # Voids 1 Weight 61.235 kg 61.235 kg Results CBC & Chem 7: 08/24/23 06:04 08/24/23 06:04 Labs: Abnormal Lab Results - Last 24 Hours (Table) 08/23/23 08/23/23 08/23/23 Range/Units 18:30 18:30 18:30 WBC 17.1 H (3.8-10.6) k/uL RBC (3.80-5.40) m/uL Hgb (11.4-16.0) gm/dL Hct (34.0-46.0) % Neutrophils # (Manual) 15.20 H (1.3-7.7) k/uL Lymphocytes # (Manual) 0.34 L (1.0-4.8) k/uL Monocytes # (Manual) 1.37 H (0-1.0) k/uL ABG pCO2 (35-45) mmHg ABG pO2 (83-108) mmHg ABG HCO3 (21-25) mmol/L ABG O2 Saturation (94-97) % Sodium 136 L (137-145) mmol/L Carbon Dioxide 21 L (22-30) mmol/L BUN 19 H (7-17) mg/dL Glucose 129 H (74-99) mg/dL POC Glucose (mg/dL) (70-110) mg/dL Plasma Lactic Acid Harris (0.7-2.0) mmol/L Calcium (8.4-10.2) mg/dL Total Bilirubin 2.1 H (0.2-1.3) mg/dL Total Protein (6.3-8.2) g/dL Albumin (3.5-5.0) g/dL Urine Appearance Cloudy H (Clear) Urine Protein 1+ H (Negative) Urine Blood Moderate H (Negative) Urine Nitrite Positive H (Negative) Ur Leukocyte Esterase Large H (Negative) Urine WBC 139 H (0-5) /hpf Urine WBC Clumps Few H (None) /hpf Urine Bacteria Rare H (None) /hpf Urine Mucus Rare H (None) /hpf 08/24/23 08/24/23 08/24/23 Range/Units 01:32 02:02 02:04 WBC (3.8-10.6) k/uL RBC (3.80-5.40) m/uL Hgb (11.4-16.0) gm/dL Hct (34.0-46.0) % Neutrophils # (Manual) (1.3-7.7) k/uL Lymphocytes # (Manual) (1.0-4.8) k/uL Monocytes # (Manual) (0-1.0) k/uL ABG pCO2 33 L (35-45) mmHg ABG pO2 299 H (83-108) mmHg ABG HCO3 19 L (21-25) mmol/L ABG O2 Saturation 99.7 H (94-97) % Sodium (137-145) mmol/L Carbon Dioxide (22-30) mmol/L BUN (7-17) mg/dL Glucose (74-99) mg/dL POC Glucose (mg/dL) 141 H (70-110) mg/dL Plasma Lactic Acid Harris 5.0 H* (0.7-2.0) mmol/L Calcium (8.4-10.2) mg/dL Total Bilirubin (0.2-1.3) mg/dL Total Protein (6.3-8.2) g/dL Albumin (3.5-5.0) g/dL Urine Appearance (Clear) Urine Protein (Negative) Urine Blood (Negative) Urine Nitrite (Negative) Ur Leukocyte Esterase (Negative) Urine WBC (0-5) /hpf Urine WBC Clumps (None) /hpf Urine Bacteria (None) /hpf Urine Mucus (None) /hpf 08/24/23 08/24/23 Range/Units 06:04 06:04 WBC 18.9 H (3.8-10.6) k/uL RBC 3.56 L (3.80-5.40) m/uL Hgb 10.9 L (11.4-16.0) gm/dL Hct 33.2 L (34.0-46.0) % Neutrophils # (Manual) 18.10 H (1.3-7.7) k/uL Lymphocytes # (Manual) 0.19 L (1.0-4.8) k/uL Monocytes # (Manual) (0-1.0) k/uL ABG pCO2 (35-45) mmHg ABG pO2 (83-108) mmHg ABG HCO3 (21-25) mmol/L ABG O2 Saturation (94-97) % Sodium 135 L (137-145) mmol/L Carbon Dioxide 19 L (22-30) mmol/L BUN (7-17) mg/dL Glucose 182 H (74-99) mg/dL POC Glucose (mg/dL) (70-110) mg/dL Plasma Lactic Acid Harris (0.7-2.0) mmol/L Calcium 8.3 L (8.4-10.2) mg/dL Total Bilirubin 1.7 H (0.2-1.3) mg/dL Total Protein 6.0 L (6.3-8.2) g/dL Albumin 3.3 L (3.5-5.0) g/dL Urine Appearance (Clear) Urine Protein (Negative) Urine Blood (Negative) Urine Nitrite (Negative) Ur Leukocyte Esterase (Negative) Urine WBC (0-5) /hpf Urine WBC Clumps (None) /hpf Urine Bacteria (None) /hpf Urine Mucus (None) /hpf Thrombosis Risk Factor Assmnt - Choose All That Apply Any of the Below Risk Factors Present?: No Other Risk Factors: Yes Each Risk Factor Represents 3 Points: Age 75 years or older Other congenital or acquired thrombophilia - If yes, enter type in comment: No Thrombosis Risk Factor Assessment Total Risk Factor Score: 3 Thrombosis Risk Factor Assessment Level: Moderate Risk Assessment and Plan Assessment: Assessment and plan * Sepsis secondary to urinary tract infection * Acute encephalopathy is likely secondary to UTI * History of carotid artery stenosis with left carotid endarterectomy * History of CVA * History of hypertension * In regards to sepsis secondary to urinary tract infection, urine cultures ordered continue patient on fluid resuscitation continue IV Rocephin blood cultures and urine cultures ordered. Serial lactate levels ordered, follow-up lactate levels within normal limits * In regards to acute encephalopathy, continue with frequent orientation continue with fluid resuscitation discontinued medication that could impact mentation including morphine * In regards to history of CVA, continue Plavix and Lipitor * In regards to history of hypertension continue to hold antihypertensive m edications until blood pressure improves * CODE STATUS is full code Time with Patient: Greater than 30
[2023-08-24] MEDS: HEPARIN SODIUM,PORCINE 5,000 UNIT/ML 1 ML VIAL SQ SCH (20:40)
[2023-08-25] MEDS: SODIUM CHLORIDE 0.9% 1,000 ML IV SCH ×2 (04:08→11:31)
[2023-08-25 09:10] LABS: BUN/Creat Ratio 20.88 Ratio (12.00-20.00); Blood Urea Nitrogen 16.7 mg/dL (9.0-27.0); Calcium 8.5 mg/dL (8.7-10.3); Carbon Dioxide 20.9 mmol/L (21.6-31.8); Chloride 109 mmol/L (96-109); Glucose 180 mg/dL (70-110); Sodium 140 mmol/L (135-145)
[2023-08-25] MEDS: CLOPIDOGREL 75 MG TAB PO SCH (09:11)
[2023-08-25] MEDS: ATORVASTATIN 40 MG TAB PO SCH (09:11)
[2023-08-25] MEDS: PANTOPRAZOLE 40 MG TABLET PO SCH (09:12)
[2023-08-25] MEDS: HEPARIN SODIUM,PORCINE 5,000 UNIT/ML 1 ML VIAL SQ SCH ×2 (09:12→21:37)
[2023-08-25 09:49] LABS: HCT 31.3 % (37.2-46.3); MCH 30.9 pg (27.0-32.0); MCHC 31.9 g/dL (32.0-37.0); MCV 96.6 FL (80.0-97.0); Mean Platelet Volume 11.3 FL (9.5-12.2); NRBC Per 100 WBC 0 X 10*3/uL (0.00-0.01); Platelet Count 286 X 10*3/uL (140-440); RBC 3.24 X 10*6/uL (4.10-5.20); RDW 13.2 % (11.5-14.5); WBC 16.87 X 10*3/uL (4.50-10.00)
--- NOTE | 2023-08-25 12:02 | P.PN ---
Subjective Progress Note Date: 08/25/23 * 88-year-old female with past medical history significant for CVA, GERD, hypertension, hyperlipidemia history of macular degeneration presents to the emergency department on 08/23/23 at 6:24 PM with complains of generalized weakness, having fever and confusion. Patient said she was recently on antibiotics for concerns for upper respiratory illness, patient states she's been feeling weak with lack of energy and having difficulty in walking. Workup in ER included CBC showed WBC count of 17.1 hemoglobin 13. Count of 305 INR of 1, serum chemistry obtained showed sodium of 136 potassium 4.5, dissected 20 1B UN 19 creatinine 0.7 glucose of 129 lactate of 1.3 total bilirubin of 2.1 with normal ALT and AST troponin within normal limits N- terminal. BNP 299 * Urinalysis was obtained which was positive for urinary tract infection with large leukocyte esterase WBC and many bacteria * Patient tested negative for influenza, RSV and Covid, chest x-ray obtained in ER was negative for acute pulmonary process * At the time of admission in ER patient had a CT head done that was negative for acute intracranial process age-related atrophic and chronic small vessel ischemic changes noted * In the time of admission patient was climbing plus with sepsis patient had received 2 L of fluid bolus and was persistently febrile * While on medical floor rapid response was also called on 08/24/23 for persistent fever and hypotension and repeat blood work was obtained * 08/25/2023: Patient seen and evaluated bedside, patient states she had significant improvement, daughter at bedside as well WBC count still elevated. We'll follow-up on urine cultures and blood cultures, no gross blood cultures noted 8 continue patient on IV Rocephin. Follow-up on basic metabolic panel for tomorrow expected length of stay another 48 hours REVIEW OF SYSTEMS: Weakness, lethargic IMPROVED CONSTITUTIONAL:Weakness, lethargic IMPROVED HEENT: No recent visual problems or hearing problems. Denied any sore throat. CARDIOVASCULAR: No chest pain, orthopnea, PND, no palpitations, no syncope. PULMONARY: No shortness of breath, no cough, no hemoptysis. GASTROINTESTINAL: No diarrhea, no nausea, no vomiting, no abdominal pain. NEUROLOGICAL: No headaches, no numbness. HEMATOLOGICAL: Denies any bleeding or petechiae. GENITOURINARY: Denies any burning micturition, frequency, or urgency. MUSCULOSKELETAL/RHEUMATOLOGICAL: Denies any joint pain, swelling, or any muscle pain. ENDOCRINE: Denies any polyuria or polydipsia. PHYSICAL EXAMINATION: GENERAL: The patient is alert and oriented x3, ill appearance, Pale appearance HEENT: Pupils are round and equally reacting to light. EOMI Normocephalic, atraumatic. No pharyngeal erythema. No thyromegaly. CARDIOVASCULAR: S1 and S2 present. No murmurs, rubs, or gallops. PULMONARY: Chest is clear to auscultation, no wheezing or crackles. ABDOMEN: Soft, nontender, nondistended, normoactive bowel sounds. No palpable organomegaly. MUSCULOSKELETAL: No joint swelling or deformity. EXTREMITIES: No cyanosis, clubbing, or pedal edema. NEUROLOGICAL: Gross neurological examination did not reveal any focal deficits. Objective - Vital Signs Vital signs: Vital Signs Temp 97.9 F 08/24/23 19:19 Pulse 76 08/24/23 19:19 Resp 16 08/24/23 19:19 BP 113/70 08/24/23 19:19 Pulse Ox 98 08/24/23 19:19 FiO2 Intake & Output 08/24/23 08/24/23 08/25/23 06:59 18:59 06:59 Intake Total 1560 Balance 1560 Weight 61.235 kg Intake: Intake, IV Titration 1560 Amount Sodium Chloride 0.9% 1, 1560 000 ml @ 130 mls/hr IV . [id number] [facility] Rx#:[id number] Other: Voiding Method Toilet Toilet Toilet # Voids 1 1 - Labs CBC & Chem 7: 08/25/23 05:47 08/25/23 05:47 Labs: Abnormal Lab Results - Last 24 Hours (Table) 08/24/23 08/24/23 08/24/23 Range/Units 01:32 02:02 02:04 WBC (3.8-10.6) k/uL RBC (3.80-5.40) m/uL Hgb (11.4-16.0) gm/dL Hct (34.0-46.0) % Neutrophils # (Manual) (1.3-7.7) k/uL Lymphocytes # (Manual) (1.0-4.8) k/uL ABG pCO2 33 L (35-45) mmHg ABG pO2 299 H (83-108) mmHg ABG HCO3 19 L (21-25) mmol/L ABG O2 Saturation 99.7 H (94-97) % Sodium (137-145) mmol/L Carbon Dioxide (22-30) mmol/L Glucose (74-99) mg/dL POC Glucose (mg/dL) 141 H (70-110) mg/dL Plasma Lactic Acid Harris 5.0 H* (0.7-2.0) mmol/L Calcium (8.4-10.2) mg/dL Total Bilirubin (0.2-1.3) mg/dL Total Protein (6.3-8.2) g/dL Albumin (3.5-5.0) g/dL 08/24/23 08/24/23 Range/Units 06:04 06:04 WBC 18.9 H (3.8-10.6) k/uL RBC 3.56 L (3.80-5.40) m/uL Hgb 10.9 L (11.4-16.0) gm/dL Hct 33.2 L (34.0-46.0) % Neutrophils # (Manual) 18.10 H (1.3-7.7) k/uL Lymphocytes # (Manual) 0.19 L (1.0-4.8) k/uL ABG pCO2 (35-45) mmHg ABG pO2 (83-108) mmHg ABG HCO3 (21-25) mmol/L ABG O2 Saturation (94-97) % Sodium 135 L (137-145) mmol/L Carbon Dioxide 19 L (22-30) mmol/L Glucose 182 H (74-99) mg/dL POC Glucose (mg/dL) (70-110) mg/dL Plasma Lactic Acid Harris (0.7-2.0) mmol/L Calcium 8.3 L (8.4-10.2) mg/dL Total Bilirubin 1.7 H (0.2-1.3) mg/dL Total Protein 6.0 L (6.3-8.2) g/dL Albumin 3.3 L (3.5-5.0) g/dL Assessment and Plan Assessment: Assessment and plan * Sepsis secondary to urinary tract infection * Acute encephalopathy is likely secondary to UTI * History of carotid artery stenosis with left carotid endarterectomy * History of CVA * History of hypertension * In regards to sepsis secondary to urinary tract infection, urine cultures ordered > continue patient on fluid resuscitation > continue IV Rocephin DAY 3/5 , follow-up on blood cultures no growth, serial lactate levels obtained, lactate normalized * In regards to acute encephalopathy resolved, continue with frequent orientation continue with fluid resuscitation discontinued medication that could impact mentation including morphine * In regards to history of CVA, continue Plavix and Lipitor * In regards to history of hypertension continue to hold antihypertensive medications until blood pressure improves( amlodipine, lisinopril/[id number]) * CODE STATUS is full code Time with Patient: Greater than 30
[2023-08-26] MEDS: PANTOPRAZOLE 40 MG TABLET PO SCH (08:42)
[2023-08-26] MEDS: CLOPIDOGREL 75 MG TAB PO SCH (08:42)
[2023-08-26] MEDS: HEPARIN SODIUM,PORCINE 5,000 UNIT/ML 1 ML VIAL SQ SCH (08:42)
[2023-08-26] MEDS: ATORVASTATIN 40 MG TAB PO SCH (08:42)
[2023-08-26 09:05] LABS: HCT 31.5 % (37.2-46.3); HGB 10.1 g/dL (12.0-15.0); MCH 30.1 pg (27.0-32.0); MCHC 32.1 g/dL (32.0-37.0); MCV 93.8 FL (80.0-97.0); Mean Platelet Volume 11.2 FL (9.5-12.2); NRBC Per 100 WBC 0 X 10*3/uL (0.00-0.01); Platelet Count 300 X 10*3/uL (140-440); RBC 3.36 X 10*6/uL (4.10-5.20); RDW 13.3 % (11.5-14.5); WBC 9.73 X 10*3/uL (4.50-10.00)
[2023-08-26 09:25] LABS: BUN/Creat Ratio 12.12 Ratio (12.00-20.00); Blood Urea Nitrogen 9.7 mg/dL (9.0-27.0); Calcium 8.3 mg/dL (8.7-10.3); Carbon Dioxide 22.1 mmol/L (21.6-31.8); Chloride 111 mmol/L (96-109); Glucose 118 mg/dL (70-110); Potassium 3.9 mmol/L (3.5-5.5); Sodium 144 mmol/L (135-145)
[2023-08-26 12:37] VITALS: PULSE 86; RESP 18; TEMP 97.9
[2023-08-26 13:53] VITALS: BP 169/85
--- NOTE | 2023-08-26 15:00 | CDI ---
Documentation Clarification Form Date: From: Lata Aparicio Phone: [phone] Admit Date: 08/23/2023 09:04:00 PM Patient Name: Ifeoma Castillo Visit Number: [id number] Discharge Date: ATTENTION: The Clinical Documentation Specialists (CDI) and [facility] Coding Staff appreciate your assistance in clarifying documentation. Please respond to the clarification below the line at the bottom and electronically sign. The CDI & [facility] Coding staff will review the response and follow-up if needed. Please note: Queries are made part of the Legal Health Record. If you have any questions, please contact the author of this message via ITS. Dr. Sharda Wyman Acute Encephalopathy is documented in the Medical H&P on 08/24. Additional clarification regarding the type of encephalopathy is requested. History/Risk Factors: "88-year-old female with past medical history significant for CVA, GERD, hypertension, hyperlipidemia history of macular degeneration presents to the emergency department on 08/23/23 at 6:24 PM with complains of generalized weakness, having fever and confusion." - Per Medical H&P on 08/24 Clinical Indicators: "Acute encephalopathy is likely secondary to UTI" "Urinalysis was obtained which was positive for urinary tract infection" "Weakness, lethargic" "ill appearance" "Sepsis" - Per Medical H&P on 08/24 Labs: WBC: 08/23 - 17.1, 08/24 - 18.9, 08/25 - 16.87, 08/26 - 9.73 Lactic Acid: 08/23 - 1.3, 08/24 - 5.0, 08/24 - 0.8 CT/MRI Brain: "negative for acute intracranial process age-related atrophic and chronic small vessel ischemic changes noted" - Per Medical H&P on 08/24 Treatment: "urine cultures ordered continue patient on fluid resuscitation continue IV Rocephin blood cultures and urine cultures ordered" - Per Medical H&P on 08/24 Please clarify the type of encephalopathy, if known: [ ] Metabolic Encephalopathy [ y ] Septic Encephalopathy [ ] Other, please specify [ ] Unable to determine MTDD
--- NOTE | 2023-08-27 14:45 | P.DS ---
Providers Date of admission: 08/23/23 21:04 Attending physician: Carter Barrera Primary care physician: John Fernandez Hospital Course: Final diagnosis -Sepsis secondary to urinary tract infection POA, urine culture negative -Altered Mental status secondary to acute toxic encephalopathy secondary to UTI -History of carotid artery stenosis with left carotid endarterectomy -History of CVA -History of hypertension -GERD -Former smoker Discharge Disposition Patient is stable for discharge home has been cleared medically. Recommending a course of oral antibiotics for 1 additional day with oral Ceftin for the acute urinary tract infection. Urine culture was negative. Patient's mentation is completely improved. Commending her to see her PCP Dr. John Fernandez and she has an appointment scheduled for August 29, 2023 at 1:10 PM. We are recommending her to repeat her labs in 2 to 3 days. Hospital Course This is an 88-year-old female with medical history significant for CVA, gastroesophageal reflux disease, hypertension, hyperlipidemia, macular degeneration who comes into the ER with complaints of generalized weakness had a fever and confusion. Patient was recently on antibiotics for an acute upper respiratory illness was feeling weak and having lack of energy and difficulty walking. She comes in for further relation. Her white count admission was elevated at 17.1, hemoglobin of 13, patient did have a normal renal function, lactic acid of 1.3. Urinalysis was obtained which was suspicious for acute urinary tract infection with large leukocyte esterase WBC and many bacteria. Patient was negative for influenza RSV and COVID. Her chest x-ray was negative. Due to the acute confusion a brain CT was done that was negative for acute intracranial process revealing age-related atrophic and chronic small vessel ischemic changes noted. Patient met sepsis criteria she was given a 2 L fluid bolus and continue with fever she was admitted to the hospital under medicine with a consult placed to infectious disease. Once she was on the medical floor she did have a rapid response called on August 24 for persistent fever and hypotension and repeat blood work was obtained. She has had a normal urine culture and normal blood culture. She was continued on IV ceftriaxone and clinically she has improved. She will continue on oral antibiotics to complete a 5-day course. Recommending for her to follow-up with her PCP on discharge in 1 to 2 days. She is not having any fever shortness of breath or chills. No nausea vomiting diarrhea no dysuria urgency or burning. She is alert x 3 no focal neurological deficits noted. She has been up ambulating in the room and tolerating diet. Her most recent blood work reveals a normal white blood cell count at 9.6. Hemodynamically she is stable and cleared for discharge with the above-mentioned recommendations. Please see medication reconciliation for list of current medication. Thank you for allowing us to participate in the care of this patient. The impression and plan of care has been dictated by Beverley Roldan, Nurse Practitioner as directed. Dr. Eunice MD I have performed a history and physical examination and medical decision making of this patient, discussed the same with the dictator, and agree with the dictators assessment and plan as written, documented as a scribe. Based on total visit time, I have performed more than 50% of this visit. Patient Condition at Discharge: Stable Plan - Discharge Summary Discharge Rx Participant: No New Discharge Prescriptions: New cefUROXime axetiL [Ceftin] 500 mg PO BID 1 Days #2 tab Continue Latanoprost [Xalatan 0.005%] 1 drop BOTH EYES HS Zinc Gluconate [Zinc] 50 mg PO DAILY Ascorbic Acid [Vitamin C] 1,000 mg PO DAILY Cholecalciferol [Vitamin D3 (25 Mcg = 1000 Iu)] 25 mcg PO DAILY Clopidogrel [Plavix] 75 mg PO DAILY Atorvastatin [Lipitor] 40 mg PO DAILY Acetaminophen Tab [Tylenol] 650 mg PO Q4HR PRN PRN Reason: Fever And/ Or Pain amLODIPine [Norvasc] 5 mg PO BID #60 tab Omeprazole Magnesium [PriLOSEC OTC] 20 mg PO DAILY Lisinopril-Hctz 20-12.5 mg [Zestoretic 20-12.5] 1 tab PO DAILY Discharge Medication List Latanoprost [Xalatan 0.005%] 1 drop BOTH EYES HS 08/13/18 [History] Omeprazole Magnesium [PriLOSEC OTC] 20 mg PO DAILY 07/26/21 [History] Zinc Gluconate [Zinc] 50 mg PO DAILY 08/26/22 [History] Ascorbic Acid [Vitamin C] 1,000 mg PO DAILY 11/13/22 [History] Cholecalciferol [Vitamin D3 (25 Mcg = 1000 Iu)] 25 mcg PO DAILY 11/13/22 [Hi story] Clopidogrel [Plavix] 75 mg PO DAILY 11/13/22 [History] Acetaminophen Tab [Tylenol] 650 mg PO Q4HR PRN 05/19/23 [History] Atorvastatin [Lipitor] 40 mg PO DAILY 05/19/23 [History] amLODIPine [Norvasc] 5 mg PO BID #60 tab 05/21/23 [Rx] Lisinopril-Hctz 20-12.5 mg [Zestoretic 20-12.5] 1 tab PO DAILY 08/23/23 [History] cefUROXime axetiL [Ceftin] 500 mg PO BID 1 Days #2 tab 08/26/23 [Rx] Follow up Appointment(s)/Referral(s): John Fernandez MD [Primary Care Provider] - 08/29/23 1:10 pm Ambulatory/Diagnostic Orders: Basic Metabolic Panel [LAB.AMB] Time Frame: 3 Days, Location: None Selected Complete Blood Count w/diff [LAB.AMB] Location: None Selected Patient Instructions/Handouts: Acute Kidney Injury (DC), Urinary Tract Infection in Women (DC) Discharge Disposition: HOME SELF-CARE
== END 2023-08-26 16:09 | disposition home or self-care (01) | DRG 871 ==
LOC: EC 18:16 → 5NMEDONC 21:04
PROVIDERS: ADMIT Hospitalist; ATTEND Hospitalist
DX: A41.9 Sepsis, unspecified organism (principal); G93.41 Metabolic encephalopathy; N39.0 Urinary tract infection, site not specified; E78.5 Hyperlipidemia, unspecified; E86.0 Dehydration; I10 Essential (primary) hypertension; K21.9 Gastro-esophageal reflux disease without esophagitis; Z79.02 Long term (current) use of antithrombotics/antiplatelets; Z79.899 Other long term (current) drug therapy; Z86.73 Personal history of transient ischemic attack (TIA), and cerebral infarction without residual deficits; Z87.891 Personal history of nicotine dependence; Z90.710 Acquired absence of both cervix and uterus
CPT/HCPCS: 36415; 36600; 70450; 71045; 71046; 80048; 80053; 81001; 82805; 83605; 83735; 83880; 84100; 84443; 84484; 85025; 85027; 85610; 85730; 87040; 87086; 87636; 93005; 96360; 96361; 99285

== ENCOUNTER 2023-11-02 20:06 | Emergency (ER) | payer MEDICARE ==
[2023-11-02 20:27] VITALS: TEMP 97.6
--- NOTE | 2023-11-02 21:03 | ED ---
General Adult HPI - General Chief complaint: Head Injury Stated complaint: head injury, on blood thinners Time Seen by Provider: 11/02/23 20:25 Source: patient, family Mode of arrival: ambulatory Limitations: no limitations - History of Present Illness Initial comments: 88-year-old female on Plavix presenting to the ED with a chief complaint of head injury. Patient states that she was reaching for something on the second overhead shelf when a glass plate on the third shelf slipped and hit her on the top of the head. There is no LOC at this time. Patient notes minimal headache at this time. No nausea or vomiting. No other injuries at this time. No other complaints. - Related Data Home Medications Medication Instructions Recorded Confirmed Latanoprost [Xalatan 0.005%] 1 drop BOTH EYES HS 08/13/18 08/23/23 Omeprazole Magnesium [PriLOSEC OTC] 20 mg PO DAILY 07/26/21 08/23/23 Zinc Gluconate [Zinc] 50 mg PO DAILY 08/26/22 08/23/23 Ascorbic Acid [Vitamin C] 1,000 mg PO DAILY 11/13/22 08/23/23 Cholecalciferol [Vitamin D3 (25 25 mcg PO DAILY 11/13/22 08/23/23 Mcg = 1000 Iu)] Clopidogrel [Plavix] 75 mg PO DAILY 11/13/22 08/23/23 Acetaminophen Tab [Tylenol] 650 mg PO Q4HR PRN 05/19/23 08/23/23 Atorvastatin [Lipitor] 40 mg PO DAILY 05/19/23 08/23/23 Lisinopril-Hctz 20-12.5 mg 1 tab PO DAILY 08/23/23 08/23/23 [Zestoretic 20-12.5] Previous Rx's Medication Instructions Recorded amLODIPine [Norvasc] 5 mg PO BID #60 tab 05/21/23 cefUROXime axetiL [Ceftin] 500 mg PO BID 1 Days #2 tab 08/26/23 Allergies Allergy/AdvReac Type Severity Reaction Status Date / Time blue dye Allergy Rash/Hives Verified 11/02/23 20:23 Review of Systems ROS Statement: Those systems with pertinent positive or pertinent negative responses have been documented in the HPI. ROS Other: All systems not noted in ROS Statement are negative. Past Medical History Past Medical History: CVA/TIA, Eye Disorder, GERD/Reflux, Hyperlipidemia, Hypertension, Memory Impairment, Syncope, Vascular Disorder Additional Past Medical History / Comment(s): Syncopy at times, bilateral macular degeneration, glaucoma. History of Any Multi-Drug Resistant Organisms: None Reported Past Surgical History: Cholecystectomy, Hysterectomy, Tonsillectomy Past Anesthesia/Blood Transfusion Reactions: No Reported Reaction Additional Past Anesthesia/Blood Transfusion Reaction / Comment(s): Pt has never received blood. Past Psychological History: No Psychological Hx Reported Smoking Status: Former smoker Past Alcohol Use History: None Reported Past Drug Use History: None Reported - Past Family History Mother History Unknown: Yes Additional Family Medical History / Comment(s): Mother when pt was 10 yrs old. Father History Unknown: Yes Additional Family Medical History / Comment(s): Father when pt was 14 yrs old General Exam Limitations: no limitations General appearance: alert Head exam: Present: other (No bal signs or raccoon's eyes. She does have a superficial approximately 2 cm laceration to the top of her scalp with no active bleeding.) Neck exam: Present: normal inspection Respiratory exam: Present: normal lung sounds bilaterally Cardiovascular Exam: Present: regular rate GI/Abdominal exam: Present: soft Extremities exam: Present: normal inspection Neurological exam: Present: alert, oriented X3 Skin exam: Present: warm, dry Course Vital Signs 11/02/23 11/02/23 20:17 22:04 Temperature 97.6 F Pulse Rate 97 87 Respiratory 20 18 Rate Blood Pressure 164/75 140/71 O2 Sat by Pulse 96 96 Oximetry Medical Decision Making - Medical Decision Making Was pt. sent in by a medical professional or institution (, PA, RAILWAY TRACK PLANT OPERATOR, urgent care, hospital, or penitentiary...) When possible be specific @ -No Did you speak to anyone other than the patient for history (EMS, parent, family, police, friend...)? What history was obtained from this source @ -No Did you review nursing and triage notes (agree or disagree)? Why? @ -I reviewed and agree with nursing and triage notes Were old charts reviewed (outside hosp., previous admission, EMS record, old EKG, old radiological studies, urgent care reports/EKG's, penitentiary records)? Report findings @ -No old charts were reviewed Differential Diagnosis (chest pain, altered mental status, abdominal pain women, abdominal pain men, vaginal bleeding, weakness, fever, dyspnea, syncope, headache, dizziness, GI bleed, back pain, seizure, CVA, palpatations, mental health, musculoskeletal)? @ -Differential Headache: Migraine, tension, cluster, carbon monoxide, central venous thrombosis, pension karma temporal arteritis, acute closure glaucoma, intercranial hemorrhage, mastoiditis, sinusitis, head injury, this is not meant to be an all-inclusive list. EKG interpreted by me (3pts min.). @ -None X-rays interpreted by me (1pt min.). @ -None done CT interpreted by me (1pt min.). @ -CT brain and cervical spine interpreted me which revealed no evidence of acute bleed or other acute finding. U/S interpreted by me (1pt. min.). @ -None done What testing was considered but not performed or refused? (CT, X-rays, U/S, labs)? Why? @ -None What meds were considered but not given or refused? Why? @ -None Did you discuss the management of the patient with other professionals (professionals i.e. , PA, RAILWAY TRACK PLANT OPERATOR, lab, RT, psych nurse, social and human services assistant, wind field service manager, teacher, appeals officer, nurse outreach case manager)? Give summary @ -No Was smoking cessation discussed for >3mins.? @ -No Was critical care preformed (if so, how long)? @ -No Were there social determinants of health that impacted care today? How? (Homelessness, low income, unemployed, alcoholism, drug addiction, transportation, low edu. Level, literacy, decrease access to med. care, retirement, rehab)? @ -No Was there de-escalation of care discussed even if they declined (Discuss DNR or withdrawal of care, Hospice)? DNR status @ -No What co-morbidities impacted this encounter? (DM, HTN, Smoking, COPD, CAD, Cancer, CVA, ARF, Chemo, Hep., AIDS, mental health diagnosis, sleep apnea, morbid obesity)? @ -Plavix use Was patient admitted / discharged? Hospital course, mention meds given and route, prescriptions, significant lab abnormalities, going to OR and other pertinent info. @ -Discharge 88-year-old female presenting to the ED status post head injury. She was reaching for cookware on the second shelf when a glass ayala on the third shelf fell and let her on her head. There is no LOC at this time. Patient only reports minimal headache at this time, no nausea or vomiting. On examination she does have a small approximately 2 cm superficial laceration on the top of her scalp with no active bleeding. This does not require repair. Laceration was cleaned and covered with bacitracin. Tetanus updated. CT brain and cervical spine revealed no evidence of acute hemorrhage, acute fracture, or other acute finding. Discharged home in stable condition. Advised wound care. Discussed return precautions with patient and family who verbalized agreement. Undiagnosed new problem with uncertain prognosis? @ -No Drug Therapy requiring intensive monitoring for toxicity (Heparin, Nitro, Insulin, Cardizem)? @ -No Were any procedures done? @ -No Diagnosis/symptom? @ -Acute head injury on thinners, superficial laceration Acute, or Chronic, or Acute on Chronic? @ -Acute Uncomplicated (without systemic symptoms) or Complicated (systemic symptoms)? @ -Uncomplicated Side effects of treatment? @ -No Exacerbation, Progression, or Severe Exacerbation? @ -No Poses a threat to life or bodily function? How? (Chest pain, [place], [place], pneumonia, PE, COPD, DKA, ARF, appy, cholecystitis, CVA, Diverticulitis, Homicidal, Suicidal, threat to staff... and all critical care pts) @ -No Disposition Clinical Impression: Head injury, Superficial laceration Disposition: HOME SELF-CARE Condition: Good Instructions (If sedation given, give patient instructions): Concussion (ED), Acute Wound Care (ED) Additional Instructions: Please return to the Emergency Department if symptoms worsen or any other concerns. Please follow-up with your primary care provider. Is patient prescribed a controlled substance at d/c from ED?: No Referrals: John Fernandez MD [Primary Care Provider] - 1-2 days Time of Disposition: 22:19
[2023-11-02] MEDS: DIPH,PERTUS(ACELL)TETVAC-LF 0.5 ML VIAL IM ONE (21:11)
[2023-11-02] MEDS: BACITRACIN OINT 1 EACH PACKET TOPICAL ONE (21:12)
--- NOTE | 2023-11-02 22:04 | CT ---
EXAMINATION TYPE: CT brain adalgisa wo con DATE OF EXAM: 11/02/2023 COMPARISON: 08/23/2023 HISTORY: s/p head injury on plavix. CT DLP: 1198.7 mGycm, Automated exposure control for dose reduction was used. CONTRAST: Patient injected with mL of . CT of the brain is performed utilizing 3 mm thick sections through the posterior fossa and 3 mm thick sections through the remaining calvarium. Study is performed within 24 hours of arrival to the hospital. No abnormal hyperdensity is present to suggest an acute intracranial hemorrhage. No mass lesion is evident. No acute infarcts are evident. Patchy periventricular white matter hypodensity is present, likely on the basis of chronic white matter ischemic changes. Findings are stable from comparison. Ventricles and sulci are prominent for the patient age. Paranasal sinuses and mastoid air cells within the [id number] are clear. IMPRESSIONS: 1. No acute intracranial process. Follow-up MRI can be performed as clinically indicated. 2. Chronic appearing periventricular white matter ischemic changes, stable from comparison CT cervical spine. COMPARISON: None CT of the cervical spine is performed in the axial plane at 2 mm thick sections. Reconstructed image s in the coronal, and sagittal plane are reviewed on the computer. No acute fractures are evident. Vertebral body alignment is normal. Degenerative disc changes are present through the cervical spine. This appears greatest at C4-5 C5-6 C6-7. Vertebral body heights are preserved. No spinal canal stenosis is evident. Some uncovertebral joint hypertrophy is present with foraminal narrowing. This is greater in the lowe r cervical. There is a sclerotic lesion along the right vertebral body aspect of T2. IMPRESSION: 1. Degenerative disc changes mid and lower cervical spine. 2. No acute fractures evident.
[2023-11-02 22:14] VITALS: BP 140/71; PULSE 87; RESP 18
== END 2023-11-02 22:23 | disposition home or self-care (01) ==
LOC: EC 20:06
DX: Z23 Encounter for immunization (principal); S01.01XA Laceration without foreign body of scalp, initial encounter; Z91.041 Radiographic dye allergy status; Z79.02 Long term (current) use of antithrombotics/antiplatelets; Z87.891 Personal history of nicotine dependence; Z86.73 Personal history of transient ischemic attack (TIA), and cerebral infarction without residual deficits; W25.XXXA Contact with sharp glass, initial encounter
CPT/HCPCS: 70450; 72125; 90471; 90715; 99283

== ENCOUNTER → 2024-03-16 | Outpatient (CLI) | payer MEDICARE | END | disposition home or self-care (01) | LOC: LABWHC1 07:49 | PROVIDERS: ATTEND Internal Medicine Interventional Cardiology | DX: E78.2 Mixed hyperlipidemia (principal) | CPT/HCPCS: 36415; 80053; 80061 ==

== ENCOUNTER → 2024-12-21 | Outpatient (CLI) | payer MEDICARE ==
[2024-12-21 17:02] LABS: ALT 16 U/L (8-44); AST 24 U/L (13-35); Albumin 4.6 g/dL (3.8-4.9); Albumin/Globulin Ratio 1.64 Ratio (1.60-3.17); Alkaline Phosphatase 97 U/L (41-126); Blood Urea Nitrogen 13.4 mg/dL (9.0-27.0); Calcium 9.8 mg/dL (8.7-10.3); Carbon Dioxide 25.1 mmol/L (21.6-31.8); Chloride 100 mmol/L (96-109); Chol/HDL Ratio 2.68 Ratio; Globulin 2.8 g/dL (1.6-3.3); Glucose 146 mg/dL (70-110); LDL Cholesterol,Calculated 66.1 mg/dL (0.0-131.0); Potassium 3.5 mmol/L (3.5-5.5); Sodium 139 mmol/L (135-145); Total Bilirubin 1.1 mg/dL (0.3-1.2); Total Protein 7.4 g/dL (6.2-8.2)
== END | disposition home or self-care (01) ==
LOC: LABWHC1 09:13
PROVIDERS: ATTEND Nurse Practitioner Adult Health
DX: I10 Essential (primary) hypertension (principal); E78.2 Mixed hyperlipidemia
CPT/HCPCS: 36415; 80053; 80061